=== PATIENT | male | born 1965 | race Caucasian/White ===

== ENCOUNTER 2017-04-26 01:09 | Inpatient (IN) ==
[2017-04-26] MEDS ORDERED: *HR* FentaNYL (PF) 100 MCG/2 ML VIAL IVP ONE (01:19)
--- NOTE | 2017-04-26 01:25 | Emergency Department Note ---
Disposition Clinical Impression: Pancreatitis Qualifiers: Chronicity: acute Pancreatitis type: unspecified pancreatitis type Acute pancreatitis complication: unspecified Qualified Code(s): K85.90 - Acute pancreatitis without necrosis or infection, unspecified Abdominal pain Qualifiers: Abdominal location: generalized Qualified Code(s): R10.84 - Generalized abdominal pain Nausea and vomiting Qualifiers: Vomiting type: unspecified Vomiting Intractability: non-intractable Qualified Code(s): R11.2 - Nausea with vomiting, unspecified Disposition: Admitted As Inpatient Condition: Undetermined Time of Disposition: 03:04 Abdominal Pain HPI - General Chief Complaint: ED Abdominal Pain Stated Complaint: abdominal pain Time Seen by Provider: 04/26/17 01:14 Source: patient, EMS Mode of arrival: EMS Limitations: no limitations Nursing Notes Reviewed: Yes Vital Signs Reviewed: Yes - History of Present Illness HPI Narrative: 51-year-old male with history of pancreatitis arrives [facility] emergency department complaining of lower abdominal pain. The patient states this started earlier today. He is not having associated nausea and vomiting. He denies any black, bloody stools. He has a extensive history of pancreatitis but he states he does not sure why he has this. The patient states he was never an alcoholic or drinker. The patient denies any biliary history. The patient is in the room as a transfer from the [facility] as they did not have a CT scan machine that was working at this time. The patient is in exquisite tenderness of his abdomen. He feels as though his abdomen is slightly harder than it normally is. The patient has some voluntary guarding. He was placed on Protonix drip as well as Flagyl IV antibiotic drip. The patient is received IV fluids as well. Pt Subjective Complaint: abdominal pain Onset (ago): hour(s) (12) Consistency: constant, Worsening Location: diffuse Pain Severity: moderate, severe Pain Scale: 8 Quality: stabbing Radiation: epigastric Migration to: no migration Improves with: nothing Worsens with: nothing Context: history of similar episodes Associated symptoms: Reports: nausea, chills. Denies: vomiting, diarrhea, fever , constipation, dysuria, hematemesis, hematochezia, melena, hematuria Treatments prior to arrival: prescription analgesics, other (Flagyl, Protonix) - Related Data Home Medications Medication Instructions Recorded Confirmed Aspirin 81 mg PO DAILY 01/20/16 01/20/16 Atorvastatin Calcium [Lipitor] 80 mg PO HS 01/20/16 01/20/16 Ibuprofen [Motrin] 400 mg PO DAILY PRN 01/20/16 01/20/16 Loratadine [Claritin] 10 mg PO DAILY 01/20/16 01/20/16 Salsalate [Disalcid] 750 mg PO BID 01/20/16 01/20/16 Previous Rx's Medication Instructions Recorded Multivit/Ca/Min/Fe/FA [Thera M 1 tab PO DAILY #30 tablet 08/13/15 Plus] Thiamine (B-1) [Vitamin B-1] 100 mg PO DAILY #30 tablet 08/13/15 HYDROcodone/Acet 5/325 mg [[place] 1 tab PO Q6H PRN #10 tab 01/21/16 5-325 mg] Omeprazole [PriLOSEC] 20 mg PO BIDAC #60 capsule. 01/21/16 Allergies Allergy/AdvReac Type Severity Reaction Status Date / Time Penicillins [PCN] Allergy Rash Verified 01/20/16 16:19 All systems ED: reviewed and negative except as stated. Constitutional: Reports: chills. Denies: fever, weakness ENT ED: Denies: congestion Cardiovascular: Denies: chest pain Respiratory: Denies: dyspnea Gastrointestinal: Reports: abdominal pain, nausea. Denies: vomiting, diarrhea, constipation, hematemesis, melena, hematochezia Genitourinary: Denies: dysuria Musculoskeletal: Denies: back pain, arthralgia, myalgia Neurological: Denies: headache Abdominal Pain PMH - Past Medical History Medical history: Reports: arthritis, osteoporosis, other Male Surgical History: Reports: no surgical history Psychiatric history: Reports: no psych history - Social History Smoking status: Never smoker Alcohol use: Reports: heavy Drug use: Reports: none Physical Exam - General Limitations: no limitations General appearance: alert, in distress (Due to pain) - Head Head exam: atraumatic, normocephalic, normal inspection - Eye Eye exam: Present: normal appearance, PERRL, EOMI - ENT ENT exam: normal exam, normal oropharynx, mucous membranes moist - Neck Neck exam: Present: normal inspection, full ROM, trachea midline - Chest Chest inspection: Present: normal inspection, symmetric chest wall rise - Respiratory Respiratory exam: Present: normal lung sounds bilaterally - Cardiovascular Cardiovascular exam: Present: regular rate, normal rhythm, normal heart sounds - Abdominal Exam Abdominal exam: Present: soft, tenderness (Diffuse), guarding (Voluntary). Absent: distention, rebound, rigidity, heel tap sign, Macedo's sign, Rovsing's sign, tenderness at McBurney's Point - Extremities Exam Extremities exam: Present: normal inspection, full ROM. Absent: tenderness, pedal edema Course - Consultations Consultation #1: Attending physician spoke with radiologist who noted that the patient does have signs of pancreatitis on CT scan. Time: 02:21 Vital Signs Temperature 97.9 F 04/26/17 01:13 Pulse Rate 72 04/26/17 01:13 Respiratory Rate 18 04/26/17 01:13 Blood Pressure 185/99 04/26/17 01:13 O2 Sat by Pulse Oximetry 98 04/26/17 01:13 Temperature 98.2 F 04/26/17 04:13 Pulse Rate 59 04/26/17 04:13 Respiratory Rate 12 04/26/17 04:13 Blood Pressure 168/103 04/26/17 04:13 O2 Sat by Pulse Oximetry 95 04/26/17 04:13 Oxygen Delivery Oxygen Delivery Room Air Abdominal Pain - MDM Narrative Medical decision making narrative: Patient has signs of pancreatic [place] on CT scan of the abdomen pelvis. The patient's lipase is negative, this is likely due to the chronic nature of his pancreatitis. The patient has pain control with the dose of fentanyl here in the emergency department. He is nothing by mouth at this time. He received IV fluids. We will admit the patient to the hospitalist at this time. The patient was accepted by Dr. Cole. - Lab Data Lab results reviewed: Yes I reviewed the patient's lab results. Result diagrams: 04/26/17 01:18 04/26/17 01:18 Lab Results 04/26/17 04/26/17 04/26/17 Range/Units 01:18 01:18 01:18 WBC 11.4 H (4.3-11.1) K/mcL RBC 4.63 (4.19-5.50) M/mcL Hgb 14.9 (12.9-16.9) g/dL Hct 43.3 (37.5-50.1) % MCV 93.5 (83.0-100.0) fL MCH 32.2 (28.0-33.3) pg MCHC 34.4 (31.6-35.5) g/dL RDW 14.3 (11.5-14.5) % Plt Count 210 (140-400) K/mcL MPV 8.9 L (9.4-12.4) fL Immature Gran % 0.4 (0-4) % Seg Neutrophils % 55.3 % Lymphocytes % 33.1 % Monocytes % 7.7 % Eosinophils % 2.7 % Basophils % 0.8 % Neutrophils # 6.3 (1.6-8.9) K/mcL Lymphocytes # 3.8 (0.6-4.6) K/mcL Monocytes # 0.9 (0.0-1.3) K/mcL Eosinophils # 0.3 (0.0-0.6) K/mcL Basophils # 0.1 (0.0-0.2) K/mcL Sodium 135 L (136-145) mEq/L Potassium 4.5 (3.5-4.5) mEq/L Chloride 103 (98-109) mEq/L Carbon Dioxide 26 (19-29) mEq/L BUN 7 L (8-26) mg/dL Creatinine 0.78 (0.72-1.25) mg/dL Est GFR ( Amer) > 60 (> 60) Est GFR (Non-Af Amer) > 60 (> 60) BUN/Creatinine Ratio 9 (6-26) Glucose 120 H (70-99) mg/dL Calculated Osmolality 279 L (280-300) Calcium 8.7 (8.6-10.8) mg/dL Total Bilirubin 0.6 (0.2-1.2) mg/dL AST 45 H (5-34) Units/L ALT 20 (0-55) Units/L Alkaline Phosphatase 160 H (38-126) Units/L Troponin I 0.00 (0-0.03) ng/mL Serum Total Protein 7.0 (6.0-8.3) g/dL Albumin 2.9 L (3.5-5.0) g/dL Globulin 4.1 H (2.4-3.5) g/dL Albumin/Globulin Ratio 0.7 L (1.1-2.2) Lipase 47 (8-78) Units/L Urine Color (Yellow) Urine Clarity (Clear) Urine pH (5.0-8.0) pH Units Ur Specific [place] (1.010-1.025) Urine Protein (Neg-Trace) mg/dL Urine Glucose (UA) (Normal) mg/dL Urine Ketones (Negative) mg/dL Urine Blood (Negative) Urine Nitrite (Negative) Urine Bilirubin (Negative) Urine Urobilinogen (Normal) mg/dL Ur Leukocyte Esterase (Negative) Ur Culture Indicated? (NO) 04/26/17 Range/Units 01:36 WBC (4.3-11.1) K/mcL RBC (4.19-5.50) M/mcL Hgb (12.9-16.9) g/dL Hct (37.5-50.1) % MCV (83.0-100.0) fL MCH (28.0-33.3) pg MCHC (31.6-35.5) g/dL RDW (11.5-14.5) % Plt Count (140-400) K/mcL MPV (9.4-12.4) fL Immature Gran % (0-4) % Seg Neutrophils % % Lymphocytes % % Monocytes % % Eosinophils % % Basophils % % Neutrophils # (1.6-8.9) K/mcL Lymphocytes # (0.6-4.6) K/mcL Monocytes # (0.0-1.3) K/mcL Eosinophils # (0.0-0.6) K/mcL Basophils # (0.0-0.2) K/mcL Sodium (136-145) mEq/L Potassium (3.5-4.5) mEq/L Chloride (98-109) mEq/L Carbon Dioxide (19-29) mEq/L BUN (8-26) mg/dL Creatinine (0.72-1.25) mg/dL Est GFR ( Amer) (> 60) Est GFR (Non-Af Amer) (> 60) BUN/Creatinine Ratio (6-26) Glucose (70-99) mg/dL Calculated Osmolality (280-300) Calcium (8.6-10.8) mg/dL Total Bilirubin (0.2-1.2) mg/dL AST (5-34) Units/L ALT (0-55) Units/L Alkaline Phosphatase (38-126) Units/L Troponin I (0-0.03) ng/mL Serum Total Protein (6.0-8.3) g/dL Albumin (3.5-5.0) g/dL Globulin (2.4-3.5) g/dL Albumin/Globulin Ratio (1.1-2.2) Lipase (8-78) Units/L Urine Color Yellow (Yellow) Urine Clarity Clear (Clear) Urine pH 7.0 (5.0-8.0) pH Units Ur Specific [place] 1.016 (1.010-1.025) Urine Protein Negative (Neg-Trace) mg/dL Urine Glucose (UA) Normal (Normal) mg/dL Urine Ketones Trace H (Negative) mg/dL Urine Blood Negative (Negative) Urine Nitrite Negative (Negative) Urine Bilirubin Negative (Negative) Urine Urobilinogen Normal (Normal) mg/dL Ur Leukocyte Esterase Negative (Negative) Ur Culture Indicated? NO (NO) - EKG Data EKG attestation: Yes I reviewed and interpreted this EKG. EKG results narrative: Heart rate 62 bpm. KS interval 171 ms. QTc 42 ms. Normal axis. Normal sinus rhythm. No ST elevation or ST depression noted. Attestation Statement - Attestation Attestation: I examined this patient and my medical decision-making was reviewed with the Resident Physician. I agree with the documented findings, disposition and treatment plan as described except to the extent set forth below. Abdominal pain, findings consistent with pancreatitis. I am concerned about the chronic nature of his pancreatitis unless his lipase may not be elevated at this time. CT scan shows some stranding around the pancreas. Due to ongoing abdominal pain we will proceed with admission.
[2017-04-26 01:26] LABS: Basophils # 0.1 K/mcL (0.0-0.2); Basophils % 0.8 %; Eosinophils # 0.3 K/mcL (0.0-0.6); Eosinophils % 2.7 %; Hematocrit 43.3 % (37.5-50.1); Hemoglobin 14.9 g/dL (12.9-16.9); Immature Granulocytes % 0.4 % (0-4); Lymphocytes # 3.8 K/mcL (0.6-4.6); Lymphocytes % 33.1 %; Mean Corpuscular HGB Conc 34.4 g/dL (31.6-35.5); Mean Corpuscular Hemoglobin 32.2 pg (28.0-33.3); Mean Corpuscular Volume 93.5 fL (83.0-100.0); Mean Platelet Volume 8.9 fL (9.4-12.4); Monocytes # 0.9 K/mcL (0.0-1.3); Monocytes % 7.7 %; Neutrophils # 6.3 K/mcL (1.6-8.9); Platelet Count 210 K/mcL (140-400); Red Blood Count 4.63 M/mcL (4.19-5.50); Red Cell Distribution Width 14.3 % (11.5-14.5); Segmented Neutrophils % 55.3 %
[2017-04-26 01:41] LABS: Alanine Aminotransferase 20 Units/L (0-55); Albumin 2.9 g/dL (3.5-5.0); Albumin/Globulin Ratio 0.7 (1.1-2.2); Alkaline Phosphatase 160 Units/L (38-126); Aspartate Amino Transferase 45 Units/L (5-34); BUN/Creatinine Ratio 9 (6-26); Bilirubin,Total 0.6 mg/dL (0.2-1.2); Blood Urea Nitrogen 7 mg/dL (8-26); Calcium 8.7 mg/dL (8.6-10.8); Carbon Dioxide 26 mEq/L (19-29); Chloride 103 mEq/L (98-109); Globulin 4.1 g/dL (2.4-3.5); Glucose 120 mg/dL (70-99); Lipase 47 Units/L (8-78); Osmolality,Calculated 279 (280-300); Potassium 4.5 mEq/L (3.5-4.5); Sodium 135 mEq/L (136-145); eGFR For African Americans > 60 (> 60); eGFR For Non-African Americans > 60 (> 60)
[2017-04-26 01:45] LABS: Bilirubin,Urine Negative (Negative); Blood,Urine Negative (Negative); Clarity,Urine Clear (Clear); Color,Urine Yellow (Yellow); Glucose,Urine (UA) Normal (Normal); Ketones,Urine Trace mg/dL (Negative); Leukocyte Esterase,Urine Negative (Negative); Nitrite,Urine Negative (Negative); Protein,Urine Negative (Neg-Trace); Specific Gravity,Urine 1.016 (1.010-1.025); Urobilinogen,Urine Normal (Normal)
[2017-04-26] MEDS ORDERED: 0.9 % Sodium Chloride 1,000 ML IVC SCH (04:45)
[2017-04-26] MEDS: *HR* Morphine 2 MG/ML SYRINGE IVP PRN ×5 (04:46→20:39)
[2017-04-26] MEDS ORDERED: 0.9 % Sodium Chloride 1,000 ML ONE (04:52)
[2017-04-26] MEDS ORDERED: Ondansetron 4 MG/2 ML VIAL IVP PRN (07:55)
[2017-04-26] MEDS ORDERED: Naloxone 0.4 MG/ML INJ IVP PRN (07:55)
[2017-04-26] MEDS ORDERED: Acetaminophen 325 MG TABLET PO PRN (07:55)
[2017-04-26] MEDS ORDERED: *HR* Morphine 2 MG/ML SYRINGE IVP PRN (07:55)
[2017-04-26] MEDS ORDERED: *HR* LORazepam 2 MG/ML VIAL IVP PRN ×3 (08:09)
[2017-04-26] MEDS: 0.9 % Sodium Chloride 1,000 ML IVC SCH ×2 (08:10→14:57)
[2017-04-26 08:31] LABS: Chol/HDL Ratio 3.6 (0-4.9); Cholesterol 192 mg/dL (< 200); HDL Cholesterol 54 mg/dL (40-59); LDL Cholesterol,Calculated 117 mg/dL (0-99); Triglycerides 105 mg/dL (< 150)
--- NOTE | 2017-04-26 08:39 | Internal Med History&Physical ---
Date of Encounter: 04/26/17 Time of Encounter: 08:09 Assessment and Plan (1) Acute on chronic pancreatitis Current visit: Yes Status: Acute Mr. Manley is a 51 year old male with PMH pancreatitis who presented to [facility] on 04/26/2017 with complaints of abdominal pain. He was admitted for suspected pancreatitis. 1. Acute on chronic pancreatitis: suspected. Presented with acute lower abdominal pain, no associated emesis or loose stool. Has known history of pancreatitis; possibly EtOH induced. Lipase normal, AST 45, Alk phos 160. ABD CT with mild pancreatic stranding at the level of the tail. S/p cholectomy. Afebrile, no significant elevation in WBC, no indication for ATB at this time. Keep NPO, IV fluids, IV PPI, IV morphine for pain. Lipid panel pending. Monitor clinical response. Consider further testing if symptoms worsen. 2. High blood pressure: No previous history of hypertension. BP elevated on admission. Suspect secondary to pain. Add PRN hydralazine. Monitor BP and titrate PRN 3. EtOH abuse: Per chart review patient is a daily drinker however he reports only drinking a 12 pack of beer on the weekends. Last drink 2 days prior to arrival. Denies history of alcohol withdrawal. Monitor with CIWA. 4. NSTEMI: per hx. 08/2015 TTE with EF 60-65%, normal RV, no significant valvular dysfunction. 08/2015 stress test negative for infarct or ischemia. Asymptomatic. Denies chest pain. Cont home ASA, statin when able to take PO 5. DVT prophylaxis: Lovenox (2) High blood pressure Current visit: Yes Status: Acute Qualifiers: Hypertension type: unspecified Qualified Code(s): I10 - Essential (primary ) hypertension (3) ETOH abuse Current visit: No Status: Chronic Internal Medicine - H&P: HPI Chief complaint: ABD pain Admitted From: Hospital to Hospital Transfer Plans for Post Hospital Care: Home History of present illness: Mr. Manley is a 51 year old male with PMH pancreatitis who presented to [facility] on 04/26/2017 with complaints of abdominal pain. He was admitted for suspected pancreatitis. Admission obtained from chart review and patient report. Patient reports acute onset of abdominal pain that started around 1:30 PM on Wednesday. Symptoms have progressed and worsened therefore he went to the [place]. CT machine apparently not working therefore he was transferred to [facility]. Patient describes pain as sharp, rates 10 out of 10. Pain is localized to entire abdomen morphine helped relieved somewhat, palpation makes pain worse. Has some nausea, no emesis. No loose stool. Past Med Surg Social Fam HX - Past Medical History Medical history: arthritis, osteoporosis, other Psychiatric history: no psych history - Past Surgical History Surgical History: cholecystectomy - Social History Smoking Status: Never smoker Packs per day: 1 Smokeless Tobacco Status: No Alcohol use: heavy Drug use: none - Family History Mother Family Member Ethnicity: Non- Living Status: Still Living Hx Family Cancer: Yes (breast ca) Hx Family Endocrine Disorder: Yes Internal Medicine - H&P: Meds Multivit/Ca/Min/Fe/FA [Thera M Plus] 1 tab PO DAILY #30 tablet 08/13/15 [Rx] Thiamine (B-1) [Vitamin B-1] 100 mg PO DAILY #30 tablet 08/13/15 [Rx] Aspirin 81 mg PO DAILY 01/20/16 [History] Atorvastatin Calcium [Lipitor] 80 mg PO HS 01/20/16 [History] Ibuprofen [Motrin] 400 mg PO DAILY PRN 01/20/16 [History] Loratadine [Claritin] 10 mg PO DAILY 01/20/16 [History] Salsalate [Disalcid] 750 mg PO BID 01/20/16 [History] HYDROcodone/Acet 5/325 mg [[place] 5-325 mg] 1 tab PO Q6H PRN #10 tab 01/21/16 [Rx ] Omeprazole [PriLOSEC] 20 mg PO BIDAC #60 capsule. 01/21/16 [Rx] 3 Allergy/AdvReac Type Severity Reaction Status Date / Time Penicillins [PCN] Allergy Rash Verified 01/20/16 16:19 All Systems PM: A 10-system review of systems was performed and is negative for pertinent findings except as documented above in the HPI. - Constitutional Constitutional: no chills, no fever(s), no night sweats - EENT Eyes: no change in vision, no discharge, no pain, no photophobia Ears: no ear discharge, no ear pain, no tinnitus Nose, mouth and throat: no dysphagia, no nasal discharge, no neck pain, no sore throat - Cardiovascular Cardiovascular ROS IM: no chest pain, no diaphoresis, no dyspnea, no lightheadedness, no palpitations, no syncope - Respiratory Respiratory: no cough, no dyspnea, no wheezing, no excessive phlegm production - Gastrointestinal Gastrointestinal: abdominal pain, nausea, no diarrhea, no hematemesis, no hematochezia, no melena, no vomiting - Musculoskeletal Musculoskeletal ROS IM: no numbness, no tingling - Integumentary Integumentary IM: no rash, no unusual bruising - Neurological Neurological ROS: no confusion, no convulsions, no focal weakness, no numbness, no tingling, no tremor(s) - Hematologic/Lymphatic Hematologic/Lymphatic: no easy bruising - Constitutional Vitals: Temp Pulse Resp BP Pulse Ox 97.6 F 60 16 178/92 97 04/26/17 07:04 04/26/17 07:04 04/26/17 07:04 04/26/17 07:04 04/26/17 07:04 General appearance: Present: mild distress, A&O X 3 - Head Head exam: Present: atraumatic, normocephalic - Eye Eye exam: Present: PERRL, conjuntiva pink, sclera anicteric Pupils: Present: PERRL - Neck Neck exam general surgery: Present: supple, trachea midline. Absent: lymphadenopathy - Respiratory Respiratory exam: Present: CTAB. Absent: accessory muscle use, rales, rhonchi, wheezes - Cardiovascular Cardiovascular exam: Present: RRR, +S1, +S2. Absent: diastolic murmur, gallop, rubs, systolic murmur - GI/Abdominal GI/Abdominal exam: Present: guarding, normal bowel sounds, soft, tenderness, no peritoneal signs. Absent: distended - Extremities Exam Extremities exam: Present: warm, radial pulses palpable and symmetrical. Absent : calf tenderness, cyanotic, pedal edema - Neurological Exam Neurological exam: Present: CN II-XII intact, oriented X3, no focal deficits. Absent: pronater drift, facial droop, speech deficit - Skin Skin exam: Present: dry, intact Internal Med - H&P Results - Labs CBC & Chem 7: 04/26/17 01:18 04/26/17 01:18
[2017-04-26] MEDS ORDERED: Pantoprazole 40 MG VIAL IVP ONE (09:14)
[2017-04-26] MEDS: *HR* Enoxaparin 40 MG/0.4 ML SYRINGE SQ SCH (12:01)
--- NOTE | 2017-04-26 13:08 | Electrocardiograph Report ---
[address] [address] Test Date: 2017-04-26 Pat Name: Thony Manley Department: 104 Room: 3B Gender: M Health And Safety Consultant: : 1965 Requested By: Jeremy Schneider Order Number: [id number] Reading MD: Chely Davis Measurements Intervals [place] Rate: 62 P: 40 SD: 171 QRS: 39 QRSD: 89 T: 35 QT: 397 QTc: 402 Interpretive Statements SINUS RHYTHM Electronically Signed On 04-26-2017 12:34:48 EST by Chely Davis
[2017-04-26] MEDS: Pantoprazole 40 MG VIAL IVP SCH (17:30)
[2017-04-26] MEDS ORDERED: Thiamine (B-1) 100 MG, Folic Acid 1 MG, MVI, adult with vitamin K 10 ML in 0.9 % Sodi... IVPB SCH (18:00)
[2017-04-27] MEDS: *HR* Morphine 2 MG/ML SYRINGE IVP PRN (00:39)
[2017-04-27 03:51] LABS: Hematocrit 41.4 % (37.5-50.1); Hemoglobin 14.1 g/dL (12.9-16.9); Mean Corpuscular HGB Conc 34.1 g/dL (31.6-35.5); Mean Corpuscular Hemoglobin 31.8 pg (28.0-33.3); Mean Corpuscular Volume 93.5 fL (83.0-100.0); Mean Platelet Volume 9.2 fL (9.4-12.4); Platelet Count 212 K/mcL (140-400); Red Blood Count 4.43 M/mcL (4.19-5.50); Red Cell Distribution Width 14.2 % (11.5-14.5)
[2017-04-27 04:09] LABS: BUN/Creatinine Ratio 8 (6-26); Blood Urea Nitrogen 6 mg/dL (8-26); Calcium 8.7 mg/dL (8.6-10.8); Carbon Dioxide 25 mEq/L (19-29); Chloride 104 mEq/L (98-109); Glucose 76 mg/dL (70-99); Osmolality,Calculated 280 (280-300); Potassium 4.2 mEq/L (3.5-4.5); Sodium 137 mEq/L (136-145); eGFR For African Americans > 60 (> 60); eGFR For Non-African Americans > 60 (> 60)
[2017-04-27 04:26] LABS: Hepatitis A Antibody IgM Nonreactive (Nonreactive); Hepatitis B Core IgM Nonreactive (Nonreactive); Hepatitis B Surface Antigen Nonreactive (Nonreactive); Hepatitis C Virus Antibody Nonreactive (Nonreactive)
[2017-04-27] MEDS: Pantoprazole 40 MG VIAL IVP SCH (06:02)
[2017-04-27] MEDS: *HR* Enoxaparin 40 MG/0.4 ML SYRINGE SQ SCH (06:02)
[2017-04-27 08:27] LABS: Alanine Aminotransferase 16 Units/L (0-55); Albumin 2.7 g/dL (3.5-5.0); Albumin/Globulin Ratio 0.7 (1.1-2.2); Alkaline Phosphatase 140 Units/L (38-126); Aspartate Amino Transferase 16 Units/L (5-34); Bilirubin,Direct 0.2 mg/dL (0.0-0.5); Bilirubin,Indirect 0.4 mg/dL (0.0-1.2); Bilirubin,Total 0.6 mg/dL (0.2-1.2); Globulin 3.9 g/dL (2.4-3.5); Total Protein 6.6 g/dL (6.0-8.3)
[2017-04-27 11:06] VITALS: BP 116/73
--- NOTE | 2017-04-27 13:04 | Internal Med Progress Note ---
Date of Encounter: 04/27/17 Time of Encounter: 13:01 - Assessment and plan (1) Acute on chronic pancreatitis Current Visit: Yes Status: Acute Assessment and plan: Mr. Manley is a 51 year old male with PMH pancreatitis who presented to [facility] on 04/26/2017 with complaints of abdominal pain. He was admitted for suspected pancreatitis. 1. Acute on chronic pancreatitis: suspected. Presented with acute lower abdominal pain, no associated emesis or loose stool. Has known history of pancreatitis; possibly EtOH induced. Lipase normal, AST 45, Alk phos 160. ABD CT with mild pancreatic stranding at the level of the tail. S/p cholecystectomy. Afebrile, no significant elevation in WBC, no indication for ATB. Symptoms improved with NPO, IV fluids, IV PPI, IV morphine. His abdominal pain had resolved and he was tolerating a regular diet at time of discharge. Recommend follow-up with PCP within 1-2 weeks. 2. High blood pressure: No previous history of hypertension. BP elevated on admission. Suspect secondary to pain. BP normalized without intervention as pain was controlled. 3. EtOH abuse: Per chart review patient is a daily drinker however he reports only drinking a 12 pack of beer on the weekends. Last drink 2 days prior to arrival. Denies history of alcohol withdrawal. Did not trigger [place]. 4. NSTEMI: per hx. 08/2015 TTE with EF 60-65%, normal RV, no significant valvular dysfunction. 08/2015 stress test negative for infarct or ischemia. Asymptomatic. Denies chest pain. Cont home ASA, statin Seen and examined at bedside. Patient says he feels significantly better and actually wants to go home today. Denies abdominal pain and says he has an appetite and wants to eat. He would like to go home later on this evening if able. He has no other complaints. Specifically denies chest pain, no shortness of breath. No abdominal pain and nausea vomiting or diarrhea. (2) High blood pressure Current Visit: Yes Status: Acute Qualifiers: Hypertension type: unspecified Qualified Code(s): I10 - Essential (primary ) hypertension (3) ETOH abuse Current Visit: No Status: Chronic - Constitutional Vitals: Temp Pulse Resp BP Pulse Ox 98.1 F 72 14 116/73 94 04/27/17 11:03 04/27/17 11:03 04/27/17 11:03 04/27/17 11:03 04/27/17 11:03 General appearance: Present: A&O X 3 - Head Head exam: Present: atraumatic, normocephalic - Eye Eye exam: Present: PERRL, conjuntiva pink, sclera anicteric Pupils: Present: PERRL - Neck Neck exam general surgery: Present: supple, trachea midline. Absent: lymphadenopathy - Respiratory Respiratory exam: Present: CTAB. Absent: accessory muscle use, rales, rhonchi, wheezes - Cardiovascular Cardiovascular exam: Present: RRR, +S1, +S2. Absent: diastolic murmur, gallop, rubs, systolic murmur - GI/Abdominal GI/Abdominal exam: Present: normal bowel sounds, soft, no peritoneal signs. Absent: distended, tenderness - Extremities Exam Extremities exam: Present: warm, radial pulses palpable and symmetrical. Absent : calf tenderness, cyanotic, pedal edema - Neurological Exam Neurological exam: Present: CN II-XII intact, oriented X3, no focal deficits. Absent: pronater drift, facial droop, speech deficit - Skin Skin exam: Present: dry, intact Internal Medicine: Result - Labs CBC & Chem 7: 04/27/17 03:05 04/27/17 03:05 Labs: Short CBC 04/27/17 Range/Units 03:05 WBC 10.2 (4.3-11.1) K/mcL Hgb 14.1 (12.9-16.9) g/dL Hct 41.4 (37.5-50.1) % Plt Count 212 (140-400) K/mcL [facility] 04/27/17 03:05 Sodium 137 Potassium 4.2 Chloride 104 Carbon Dioxide 25 BUN 6 L Creatinine 0.71 L Glucose 76 Calcium 8.7 Liver Function 04/27/17 Range/Units 03:05 Total Bilirubin 0.6 (0.2-1.2) mg/dL Direct Bilirubin 0.2 (0.0-0.5) mg/dL AST 16 (5-34) Units/L ALT 16 (0-55) Units/L Alkaline Phosphatase 140 H (38-126) Units/L Albumin 2.7 L (3.5-5.0) g/dL Consult Discharge Plan - Plan [facility]errals: [facility]Primary Care Provider[facility] -
--- NOTE | 2017-04-27 13:11 | Discharge Summary ---
Date of Encounter: 04/27/17 Time of Encounter: 13:07 - Discharge Diagnosis (1) Acute on chronic pancreatitis Priority: Primary Status: Acute Comments: Mr. Manley is a 51 year old male with PMH pancreatitis who presented to [facility] on 04/26/2017 with complaints of abdominal pain. He was admitted for suspected pancreatitis. 1. Acute on chronic pancreatitis: suspected. Presented with acute lower abdominal pain, no associated emesis or loose stool. Has known history of pancreatitis; possibly EtOH induced. Lipase normal, AST 45, Alk phos 160. ABD CT with mild pancreatic stranding at the level of the tail. S/p cholecystectomy. Afebrile, no significant elevation in WBC, no indication for ATB. Symptoms improved with NPO, IV fluids, IV PPI, IV morphine. His abdominal pain had resolved and he was tolerating a regular diet at time of discharge. Recommend follow-up with PCP within 1-2 weeks. 2. High blood pressure: No previous history of hypertension. BP elevated on admission. Suspect secondary to pain. BP normalized without intervention as pain was controlled. 3. EtOH abuse: Per chart review patient is a daily drinker however he reports only drinking a 12 pack of beer on the weekends. Last drink 2 days prior to arrival. Denies history of alcohol withdrawal. Did not trigger [place]. (2) High blood pressure Priority: Primary Status: Acute Qualifiers: Hypertension type: unspecified Qualified Code(s): I10 - Essential (primary ) hypertension (3) ETOH abuse Priority: Primary Status: Chronic - Discharge Medications Home Medications: No Known Home Drugs 04/26/17 [History] Allergies/Adverse Reactions: 3 Allergy/AdvReac Type Severity Reaction Status Date / Time Penicillins [PCN] Allergy Rash Verified 01/20/16 16:19 Date of admission: 04/26/17 08:11 [facility] care [facility] Discharging clinician: Jeannie Ayoub Anticipated date of discharge: 04/27/17 - Patient Status Disposition: Home, Self-Care Condition: Good Functional capacity at discharge: independent ambulation Overall status at discharge: patient is back to baseline - Discharge Instructions Instructions: Pancreatitis (DC) [facility]: [facility] [Primary Care Provider] - - Diet and Activity Activity: increase activity as tolerated Diet: advance to your usual diet Interval History: Seen and examined at bedside. Patient says he feels significantly better and actually wants to go home today. Denies abdominal pain and says he has an appetite and wants to eat. He would like to go home later on this evening if able. He has no other complaints. Specifically denies chest pain, no shortness of breath. No abdominal pain and nausea vomiting or diarrhea. - Time Spent with Patient Total time spent providing and/or coordinating discharge services: Less than 30 minutes - Constitutional Vitals: Temp Pulse Resp BP Pulse Ox 98.1 F 72 14 116/73 94 04/27/17 11:03 04/27/17 11:03 04/27/17 11:03 04/27/17 11:03 04/27/17 11:03 General appearance: Present: A&O X 3 - Head Head exam: Present: atraumatic, normocephalic - Eye Eye exam: Present: PERRL, conjuntiva pink, sclera anicteric Pupils: Present: PERRL - Neck Neck exam general surgery: Present: supple, trachea midline. Absent: lymphadenopathy - Respiratory Respiratory exam: Present: CTAB. Absent: accessory muscle use, rales, rhonchi, wheezes - Cardiovascular Cardiovascular exam: Present: RRR, +S1, +S2. Absent: diastolic murmur, gallop, rubs, systolic murmur - GI/Abdominal GI/Abdominal exam: Present: normal bowel sounds, soft, no peritoneal signs. Absent: distended, tenderness - Extremities Exam Extremities exam: Present: warm, radial pulses palpable and symmetrical. Absent : calf tenderness, cyanotic, pedal edema - Neurological Exam Neurological exam: Present: CN II-XII intact, oriented X3, no focal deficits. Absent: pronater drift, facial droop, speech deficit - Skin Skin exam: Present: dry, intact
== END 2017-04-27 14:25 | disposition home or self-care (01) | DRG 440 ==
LOC: EMEROO 01:09 → 3NENU 01:09 → 3BNU 03:30
PROVIDERS: ADMIT Internal Medicine; ATTEND Internal Medicine

== ENCOUNTER 2017-09-08 16:50 | Inpatient (IN) ==
[2017-09-08] MEDS ORDERED: Ondansetron 4 MG/2 ML VIAL IVP ONE (17:26)
[2017-09-08] MEDS ORDERED: 0.9 % Sodium Chloride 1,000 ML IVC ONE (17:26)
[2017-09-08] MEDS ORDERED: *HR* FentaNYL (PF) 100 MCG/2 ML VIAL IVP ONE (17:26)
--- NOTE | 2017-09-08 17:49 | Emergency Department Note ---
Disposition Clinical Impression: Pancreatic mass Nausea & vomiting Qualifiers: Vomiting type: unspecified Vomiting Intractability: non-intractable Qualified Code(s): R11.2 - Nausea with vomiting, unspecified Abdominal pain Qualifiers: Abdominal location: left upper quadrant Qualified Code(s): R10.12 - Left upper quadrant pain Disposition: Admitted As Inpatient Condition: Fair Time of Disposition: 18:57 Abdominal Pain HPI - General Chief Complaint: ED Abdominal Pain Stated Complaint: "Pancreatic mass" Time Seen by Provider: 09/08/17 16:53 Source: patient Mode of arrival: EMS Limitations: no limitations Nursing Notes Reviewed: Yes Vital Signs Reviewed: Yes - History of Present Illness HPI Narrative: Patient is a 52-year-old male who presents to [facility] ED with a chief complaint of abdominal pain. States [facility] and was diagnosed with a pancreatic mass. His CT scan shows a focal decreased enhancement in the tail of the pancreas measuring 0.4 x 0.8 x 1.1 cm that is concerning for pancreatic carcinoma. A biopsy is recommended. Patient states he has had 3 days of worsening abdominal pain as well as nausea with vomiting. Denies any fevers or chills. Pt Subjective Complaint: abdominal pain Onset (ago): day(s) Consistency: constant Location: LUQ, LLQ Pain Severity: severe Pain Scale: 10 Quality: stabbing Radiation: none Migration to: no migration Improves with: nothing Worsens with: nothing Associated symptoms: Reports: nausea, vomiting. Denies: diarrhea, fever, chills , constipation, dysuria Treatments prior to arrival: none - Related Data Home Medications Medication Instructions Recorded Confirmed No Known Home Drugs 04/26/17 09/08/17 Allergies Allergy/AdvReac Type Severity Reaction Status Date / Time Penicillins [PCN] Allergy Rash Verified 01/20/16 16:19 All systems ED: reviewed and negative except as stated. Abdominal Pain PMH - Past Medical History Medical history: Reports: arthritis, osteoporosis, other Male Surgical History: Reports: no surgical history Psychiatric history: Reports: no psych history - Social History Smoking status: Never smoker Alcohol use: Reports: heavy Drug use: Reports: none Physical Exam - General Limitations: no limitations General appearance: alert, in no apparent distress - Head Head exam: atraumatic, normocephalic, normal inspection - Eye Eye exam: Present: normal appearance, EOMI - ENT ENT exam: normal exam, normal oropharynx, mucous membranes moist - Neck Neck exam: Present: normal inspection, full ROM, trachea midline - Chest Chest inspection: Present: normal inspection, symmetric chest wall rise - Respiratory Respiratory exam: Present: normal lung sounds bilaterally - Cardiovascular Cardiovascular exam: Present: regular rate, normal rhythm, normal heart sounds - Abdominal Exam Abdominal exam: Present: soft, tenderness, normal bowel sounds Abdominal tenderness: Present: diffuse, moderate - Extremities Exam Extremities exam: Present: normal inspection, full ROM. Absent: tenderness, pedal edema - Back Exam Back exam: Present: normal inspection, full ROM. Absent: tenderness - Neurological Exam Neurological exam: Present: alert, oriented X3 - Psychiatric Psychiatric exam: Present: normal affect, normal mood - Skin Skin exam: Present: warm, dry, intact, normal color Course Course Narrative: Patient seen and examined. Generalized abdominal pain worse over the last 3 days. Has had nausea with vomiting. Workup done at the [facility] shows a pancreatic mass concerning for pancreatic carcinoma. We will place an IV, give fluids, pain medication and nausea medication and admit to hospitalist for further workup. [facility] Lab Work 09/08/2017 UA Clarity clear Color yellow Urine glucose negative Urine bilirubin negative Urine ketones 10 Specific gravity 1.030 Urine occult blood negative Urine pH 8.0 H Urine protein trace Urine nitrite negative Urine leukocyte esterase negative Glucose 116 Ammonia 20 Ethanol <3 AST 14 ALT 17 Total bilirubin 0.5 Alkaline phosphatase total 144 H Calcium 9.8 Total protein 8.7 Albumin 3.9 Lipase 146 Amylase 64 Sodium 134 L Potassium 3.7 Chloride 99 CO2 27 Glucose 112 H BUN 7 Creatinine 0.80 Estimated GFR >60 WBC 11.9 RBC 5.53 Hgb 18 HCT 50.9 MCV 92 MCH 32.5 MCHC 35.4 RDW 13.9 PLT 242.0 Neutrophils 88.3 Lymphocytes 28.8 Monocytes 9.8 Eosinophils 2.3 Basophils 0.8 Absolute neutrophil count 6.9 Absolute lymphocytes 3.4 Absolute monocytes 1.2 Absolute eosinophil 0.3 Absolute basophil 0.1 - Reevaluation(s) Reevaluation #1: Discussed with hospitalist Dr. Hamlin who has accepted patient for admission. Time: 18:57 Vital Signs Temperature 97.8 F 09/08/17 16:51 Pulse Rate 73 09/08/17 16:51 Respiratory Rate 20 04/04/18 16:51 Blood Pressure 141/96 09/08/17 16:51 O2 Sat by Pulse Oximetry 96 09/08/17 16:51 Temperature 97.7 F 09/08/17 18:55 Pulse Rate 70 09/08/17 18:55 Respiratory Rate 14 09/08/17 18:55 Blood Pressure 145/84 09/08/17 18:55 O2 Sat by Pulse Oximetry 94 09/08/17 18:55 Oxygen Delivery Oxygen Delivery Room Air Abdominal Pain - Medical Records Medical records reviewed: Yes I reviewed the patient's medical records. - Lab Data Lab results reviewed: Yes I reviewed the patient's lab results. - Radiology Data Radiology results reviewed: Yes I reviewed the patient's radiology results. Attestation Statement - Attestation Attestation: I examined this patient and my medical decision-making was reviewed with the Resident Physician, Dr. Brooke. I agree with the documented findings, disposition and treatment plan as described except to the extent set forth below. Patient is a 52-year-old male with a history of chronic alcoholism who was transferred to us from the [facility] with concerns for pancreatic mass. Patient has a history of EtOH and prior pancreatitis and after review of our records looks like he has been admitted twice in the past 6 months for acute pancreatitis. During those episodes patient had a normal lipase, normal white count, with presenting epigastric pain nausea vomiting and abnormal CT findings with. Pancreatic inflammation. Patient has had a three-day history of gradually worsening epigastric pain radiating through to his back associated with nausea and vomiting and was evaluated initially at the [facility]. They obtained a full lab evaluation including CT abdomen and pelvis which showed findings concerning for pancreatic tail mass. Patient's labs are otherwise unremarkable , vital signs are stable he is hemodynamically stable on arrival. I agree with patient's physical exam findings as documented. Vitals are stable. Patient was started on IV fluid bolus, pain meds and antiemetics and made nothing by mouth. There is no need to repeat any additional labs or imaging at this time as everything was done just prior to arrival to our ED. These were placed in the chart. Case was discussed with hospitalist who accepted patient for admission for further evaluation and management.
[2017-09-08] MEDS ORDERED: Ondansetron 4 MG/2 ML VIAL IVP PRN (19:01)
[2017-09-08] MEDS ORDERED: Naloxone 0.4 MG/ML INJ IVP PRN (19:02)
[2017-09-08] MEDS ORDERED: *HR* LORazepam 2 MG/ML VIAL IVP PRN ×3 (20:37)
[2017-09-08] MEDS: *HR* FentaNYL (PF) 100 MCG/2 ML VIAL IVP PRN (20:45)
[2017-09-08] MEDS: 0.9 % Sodium Chloride 1,000 ML IVC SCH (20:51)
--- NOTE | 2017-09-08 21:10 | Internal Med History&Physical ---
Date of Encounter: 09/08/17 Time of Encounter: 21:02 Internal Medicine - H&P: HPI Chief complaint: abdominal pain, N/V x 3 days, pancreatitis Admitted From: Home Plans for Post Hospital Care: Home History of present illness: Mr. Manley is a 52 year old male with a PMH of arthritis, osteoporosis, HLD, ETOH abuse and pancreatitis. He presents to the ED from [facility] today with a 3-day h/o abdominal pain and N/V/D. He has c/o diffuse abdominal pain but notes that it is worse in the LUQ and epigastric area. He describes the pain as stabbing and rates it a 10/10 in intensity. He reports that he has had pancreatitis in the past. Additionally, he reports that he regularly ingest alcohol. His workup did not show any elevations in LFT's; lipase is high normal. However CT of the abdomen which was completed at the [facility] reveals a focal decreased enhancement in the tail of the pancreas measuring 0.4 x 0.8 x 1.1 cm that is concerning for pancreatic carcinoma. He is being admitted for further workup and evaluation. Past Med Surg Social Fam HX - Past Medical History Medical history: arthritis, osteoporosis, other Psychiatric history: no psych history - Past Surgical History Surgical History: cholecystectomy - Social History Smoking Status: Never smoker Smokeless Tobacco Status: No Alcohol use: heavy Drug use: none - Family History Mother Family Member Ethnicity: Non- Living Status: Still Living Hx Family Cancer: Yes (breast ca) Hx Family Endocrine Disorder: Yes Internal Medicine - H&P: Meds No Known Home Drugs 04/26/17 [History] 3 Allergy/AdvReac Type Severity Reaction Status Date / Time Penicillins [PCN] Allergy Rash Verified 01/20/16 16:19 All Systems PM: A 10-system review of systems was performed and is negative for pertinent findings except as documented above in the HPI. Review of systems: REVIEW OF SYSTEMS GENERAL: Negative for any nausea, vomiting, fevers, chills, or weight loss, decrease in appetite, Dysgeusia or anosmia. NEUROLOGIC: Negative for any blurry vision, blind spots, double vision, facial asymmetry, dysphagia, dysarthria, hemiparesis, hemisensory deficits, vertigo, ataxia. HEENT: Negative for any head trauma, neck trauma, neck stiffness, photophobia, phonophobia, sinusitis, rhinitis. CARDIAC: Negative for any chest pain, dyspnea on exertion, paroxysmal nocturnal dyspnea, peripheral edema. PULMONARY: Negative for any shortness of breath, wheezing, COPD, or TB exposure. GASTROINTESTINAL: Negative for any bright red blood per rectum, melena. Positive for diffuse abdominal pain worse in the epigastric area and left upper quadrant, nausea, vomiting and diarrhea GENITOURINARY: Negative for any dysuria, hematuria, incontinence. INTEGUMENTARY: Negative for any rashes, cuts, insect bites. RHEUMATOLOGIC: Negative for any joint pains, photosensitive rashes, history of vasculitis or kidney problems. HEMATOLOGIC: Negative for any abnormal bruising, frequent infections or bleeding. - Constitutional Vitals: Temp Pulse Resp BP Pulse Ox 97.7 F 70 14 145/84 94 09/08/17 18:55 09/08/17 18:55 09/08/17 18:55 09/08/17 18:55 09/08/17 18:55 General appearance: Present: cooperative, mild distress, A&O X 3, answers questions appropriately Exam: PHYSICAL EXAMINATION: GENERAL: The patient is a well-developed, well-nourished male in mild distress. He is alert and oriented x3 HEENT: Head is normocephalic and atraumatic. Extraocular muscles are intact. Pupils are equal, round, and reactive to light and accommodation. NECK: Supple. No carotid bruits. No lymphadenopathy or thyromegaly. LUNGS: Clear to auscultation. HEART: Regular rate and rhythm without murmur. ABDOMEN: Soft,nondistended. Hypoactive bowel sounds. No hepatosplenomegaly was noted. Diffuse tenderness throughout worse in left upper quadrant EXTREMITIES: Without any cyanosis, clubbing, rash, lesions or edema SKIN: No ulceration or induration rashes or lesions present Internal Med - H&P Results - Impressions focal decreased enhancement in the tail of the pancreas measuring 0.4 x 0.8 x 1.1 cm that is concerning for pancreatic carcinoma. - Assessment and plan (1) Acute pancreatitis, unspecified Current Visit: Yes Status: Acute Assessment and plan: Presents today with N/V/D and diffuse abdominal pain for 3-days. He has a h/o pancreatitis and ETOH abuse. [facility] a new pancreatic mass per CT abdomen which shows a focal decreased enhancement in the tail of the pancreas measuring 0.4 x 0.8 x 1.1 cm that is concerning for pancreatic carcinoma. No elevation in AST (14) or ALT (17). Lipase is high normal at 146. Given his clinical presentation and past hx he appears to have acute pancreatitis. Also, he reports that he had 6 alcoholic beverages this past Wednesday. I have consulted oncology who recommends outpatient f/u of new pancreatic mass after resolution of pancreatitis. -Start conservative treatment including IVF, analgesia, and antiemetics -IVF 0.9% NS at 150ml/hr -Zofran 4mg Q6hrs for nausea -Clear diet for now -Fentanyl, and Oxycodone for pain PRN -Continuous tele, -Recheck lipase in am -CBCD, CMP in am. Qualifiers: Pancreatitis type: alcohol induced Acute pancreatitis complication: unspecified Qualified Code(s): K85.20 - Alcohol induced acute pancreatitis without necrosis or infection (2) Pancreatic mass Current Visit: Yes Status: Acute Assessment and plan: see plan above (3) Abdominal pain Current Visit: Yes Status: Acute Qualifiers: Abdominal location: generalized Qualified Code(s): R10.84 - Generalized abdominal pain (4) Nausea and vomiting Current Visit: Yes Status: Acute Qualifiers: Vomiting type: unspecified Vomiting Intractability: non-intractable Qualified Code(s): R11.2 - Nausea with vomiting, unspecified (5) ETOH abuse Current Visit: Yes Status: Chronic Assessment and plan: Hx of ETOH abuse. He reports that he mainly drink 6 alcoholic beverages on the weekends. However, he also admits that he sometimes drinks more frequently. He denies ever going through withdrawal. His last alcoholic beverage was Monday September 04, 2017. -CIWA -B12, Folate and (6) Current smoker Current Visit: Yes Status: Chronic Assessment and plan: Discussed smoking cessation. Nicotine patch (7) DVT prophylaxis Current Visit: Yes Status: Acute Assessment and plan: Heparin 5000 units SC BID - Time Spent With Patient Total time spent is greater than 50% in coordination of care (as documented) at patient's floor/unit and/or counseling patient: Greater than 35 minutes
[2017-09-08] MEDS: Thiamine (B-1) 100 MG TABLET PO SCH (21:13)
[2017-09-08] MEDS: Folic Acid 1 MG TABLET PO SCH (21:13)
[2017-09-08] MEDS: Vitamin B Complex/Vit C/Vit E 1 EACH TABLET PO SCH (21:13)
[2017-09-08] MEDS: Nicotine 14 MG PATCH.TD24 TD SCH (21:46)
[2017-09-08] MEDS: *HR* OxyCODONE/APAP 5/325 TABLET PO PRN (22:24)
[2017-09-09] MEDS: *HR* FentaNYL (PF) 100 MCG/2 ML VIAL IVP PRN ×2 (01:45→06:51)
[2017-09-09] MEDS: *HR* OxyCODONE/APAP 5/325 TABLET PO PRN ×3 (04:35→18:13)
[2017-09-09] MEDS: 0.9 % Sodium Chloride 1,000 ML IVC SCH (04:38)
[2017-09-09 05:32] LABS: Basophils # 0.1 K/mcL (0.0-0.2); Basophils % 0.8 %; Eosinophils # 0.4 K/mcL (0.0-0.6); Eosinophils % 3.9 %; Hematocrit 42.2 % (37.5-50.1); Hemoglobin 14.5 g/dL (12.9-16.9); Immature Granulocytes % 0.4 % (0-4); Lymphocytes # 2.5 K/mcL (0.6-4.6); Lymphocytes % 25.7 %; Mean Corpuscular HGB Conc 34.4 g/dL (31.6-35.5); Mean Corpuscular Hemoglobin 31.9 pg (28.0-33.3); Mean Platelet Volume 9.4 fL (9.4-12.4); Monocytes # 1.1 K/mcL (0.0-1.3); Monocytes % 11.1 %; Neutrophils # 5.6 K/mcL (1.6-8.9); Platelet Count 201 K/mcL (140-400); Red Blood Count 4.54 M/mcL (4.19-5.50); Red Cell Distribution Width 13.6 % (11.5-14.5); Segmented Neutrophils % 58.1 %
[2017-09-09] MEDS: *HR* Heparin 5,000 UNIT/ML VIAL SQ SCH ×2 (05:38→18:13)
[2017-09-09 05:55] LABS: Alanine Aminotransferase 10 Units/L (7-52); Albumin 3.3 g/dL (3.5-5.7); Albumin/Globulin Ratio 1.1 (1.1-2.2); Alkaline Phosphatase 109 Units/L (34-104); Aspartate Amino Transferase 15 Units/L (13-39); BUN/Creatinine Ratio 10 (6-26); Bilirubin,Total 0.5 mg/dL (0.3-1.0); Blood Urea Nitrogen 7 mg/dL (6-20); Calcium 8.7 mg/dL (8.6-10.3); Carbon Dioxide 23 mEq/L (23-29); Chloride 106 mEq/L (98-107); Chol/HDL Ratio 4.7 (0-4.9); Cholesterol 175 mg/dL (< 200); Globulin 2.9 g/dL (2.4-3.5); Glucose 98 mg/dL (70-105); HDL Cholesterol 37 mg/dL (40-59); LDL Cholesterol,Calculated 114 mg/dL (0-99); Osmolality,Calculated 276 (280-300); Potassium 3.8 mEq/L (3.5-5.1); Sodium 134 mEq/L (136-145); Total Protein 6.2 g/dL (6.4-8.9); Triglycerides 119 mg/dL (< 150); eGFR For African Americans > 60 (> 60); eGFR For Non-African Americans > 60 (> 60)
[2017-09-09] MEDS ORDERED: OXYCODONE Oral CONC 10 MG/0.5 ML ORAL.SYG SL PRN (08:37)
--- NOTE | 2017-09-09 08:41 | Internal Med Progress Note ---
Date of Encounter: 09/09/17 Time of Encounter: 12:25 - Assessment and plan (1) ETOH abuse Current Visit: Yes Status: Chronic Assessment and plan: Hx of ETOH abuse. He reports that he mainly drink 6 alcoholic beverages on the weekends. However, he also admits that he sometimes drinks more frequently. He denies ever going through withdrawal. His last alcoholic beverage was Monday September 04, 2017. -CIWA -B12, Folate and thiamine, continue (2) Current smoker Current Visit: Yes Status: Chronic Assessment and plan: Discussed smoking cessation. Nicotine patch (3) Pancreatic mass Current Visit: Yes Status: Ruled-out Assessment and plan: Ruled out by MRI Oncology consulted by admiting team, follow recs (4) DVT prophylaxis Current Visit: Yes Status: Acute Assessment and plan: Heparin 5000 units SC BID (5) Chronic pancreatitis Current Visit: Yes Status: Acute Assessment and plan: acute on chronic MRI showed tail of pancreas with inflammation, atrophy of pancreas signifying chronicity, as well as pseudocyst due to alcohol lipid panel unremarkable no stones on CT/MRI Continue pain control and supportive care clear liquid diet and advance as tolerated Qualifiers: Pancreatitis type: alcohol induced Qualified Code(s): K86.0 - Alcohol- induced chronic pancreatitis (6) Abdominal pain Current Visit: Yes Status: Acute Assessment and plan: see above Qualifiers: Abdominal location: generalized Qualified Code(s): R10.84 - Generalized abdominal pain (7) Pancreatic pseudocyst Current Visit: Yes Status: Acute Assessment and plan: per MRI Follow up protocol is 1 year - Time Spent With Patient Total time spent is greater than 50% in coordination of care (as documented) at patient's floor/unit and/or counseling patient: - Subjective Interval history: Seen and examined at bedside with father Still having abdominal pain, stated 5-11/14, no other complains - Constitutional Vitals: Temp Pulse Resp BP Pulse Ox 97.7 F 73 20 128/80 92 09/09/17 07:15 09/09/17 07:15 09/09/17 07:15 09/09/17 07:15 09/09/17 07:15 General appearance: Present: cooperative, mild distress, A&O X 3, pleasant, answers questions appropriately - Head Head exam: Present: atraumatic, normocephalic - Eye Eye exam: Present: PERRL, conjuntiva pink, sclera anicteric Pupils: Present: PERRL - Neck Neck exam general surgery: Present: supple, trachea midline. Absent: lymphadenopathy - Respiratory Respiratory exam: Present: CTAB. Absent: accessory muscle use, rales, rhonchi, wheezes - Cardiovascular Cardiovascular exam: Present: RRR, +S1, +S2. Absent: diastolic murmur, gallop, rubs, systolic murmur - GI/Abdominal GI/Abdominal exam: Present: normal bowel sounds, soft, tenderness (epigastric tenderness), no peritoneal signs. Absent: distended - Extremities Exam Extremities exam: Present: warm, radial pulses palpable and symmetrical. Absent : calf tenderness, cyanotic, pedal edema - Neurological Exam Neurological exam: Present: alert, CN II-XII intact, oriented X3, no focal deficits. Absent: pronater drift, facial droop, speech deficit - Skin Skin exam: Present: dry, intact Internal Medicine: Result - Labs CBC & Chem 7: 09/09/17 05:05 09/09/17 05:05 Labs: Short CBC 09/09/17 Range/Units 05:05 WBC 9.7 (4.3-11.1) K/mcL Hgb 14.5 (12.9-16.9) g/dL Hct 42.2 (37.5-50.1) % Plt Count 201 (140-400) K/mcL Neutrophils # 5.6 (1.6-8.9) K/mcL BMP 09/09/17 05:05 Sodium 134 L Potassium 3.8 Chloride 106 Carbon Dioxide 23 BUN 7 Creatinine 0.69 L Glucose 98 Calcium 8.7 Liver Function 09/09/17 Range/Units 05:05 Total Bilirubin 0.5 (0.3-1.0) mg/dL AST 15 (13-39) Units/L ALT 10 (7-52) Units/L Alkaline Phosphatase 109 H (34-104) Units/L Albumin 3.3 L (3.5-5.7) g/dL Consult Discharge Plan - Plan Referrals: [facility] [Outside]
[2017-09-09] MEDS: Vitamin B Complex/Vit C/Vit E 1 EACH TABLET PO SCH (09:08)
[2017-09-09] MEDS: Thiamine (B-1) 100 MG TABLET PO SCH (09:08)
[2017-09-09] MEDS: Folic Acid 1 MG TABLET PO SCH (09:08)
[2017-09-09] MEDS: Nicotine 14 MG PATCH.TD24 TD SCH (09:08)
[2017-09-09] MEDS: OXYCODONE Oral CONC 10 MG/0.5 ML ORAL.SYG SL PRN ×2 (15:37→21:25)
[2017-09-09] MEDS: Pantoprazole 40 MG VIAL IVP SCH (15:37)
[2017-09-10] MEDS: *HR* OxyCODONE/APAP 5/325 TABLET PO PRN ×3 (00:44→22:28)
[2017-09-10] MEDS: *HR* Heparin 5,000 UNIT/ML VIAL SQ SCH ×2 (05:54→15:03)
[2017-09-10] MEDS: OXYCODONE Oral CONC 10 MG/0.5 ML ORAL.SYG SL PRN ×3 (05:55→19:43)
[2017-09-10] MEDS: Thiamine (B-1) 100 MG TABLET PO SCH (08:26)
[2017-09-10] MEDS: Vitamin B Complex/Vit C/Vit E 1 EACH TABLET PO SCH (08:26)
[2017-09-10] MEDS: Folic Acid 1 MG TABLET PO SCH (08:26)
[2017-09-10] MEDS: Nicotine 14 MG PATCH.TD24 TD SCH (08:26)
[2017-09-10] MEDS: Pantoprazole 40 MG VIAL IVP SCH (08:26)
--- NOTE | 2017-09-10 11:26 | Internal Med Progress Note ---
Date of Encounter: 09/10/17 Time of Encounter: 11:25 - Assessment and plan (1) ETOH abuse Current Visit: Yes Status: Chronic Assessment and plan: Hx of ETOH abuse. He reports that he mainly drink 6 alcoholic beverages on the weekends. However, he also admits that he sometimes drinks more frequently. He denies ever going through withdrawal. His last alcoholic beverage was Monday September 04, 2017. Continue CIWA protocol Continue B12, Folate and thiamine, continue (2) Current smoker Current Visit: Yes Status: Chronic Assessment and plan: Discussed smoking cessation. Nicotine patch (3) Pancreatic mass Current Visit: Yes Status: Ruled-out Assessment and plan: Ruled out by MRI Oncology consulted by admiting team, follow recs (4) DVT prophylaxis Current Visit: Yes Status: Acute Assessment and plan: Heparin 5000 units SC BID (5) Chronic pancreatitis Current Visit: Yes Status: Acute Assessment and plan: acute on chronic Improving MRI showed tail of pancreas with inflammation, atrophy of pancreas signifying chronicity, as well as pseudocyst due to alcohol lipid panel unremarkable no stones on CT/MRI Continue pain control and supportive care clear liquid diet and advance as tolerated Qualifiers: Pancreatitis type: alcohol induced Qualified Code(s): K86.0 - Alcohol- induced chronic pancreatitis (6) Abdominal pain Current Visit: Yes Status: Acute Assessment and plan: see above Qualifiers: Abdominal location: generalized Qualified Code(s): R10.84 - Generalized abdominal pain (7) Pancreatic pseudocyst Current Visit: Yes Status: Acute Assessment and plan: per MRI Follow up protocol is 1 year - Time Spent With Patient Total time spent is greater than 50% in coordination of care (as documented) at patient's floor/unit and/or counseling patient: - Subjective Interval history: Seen and examined at bedside Reports pain is improved and is wanting a regular diet, obliged, will monitor for rest of the day Not in alcohol withdrawal at this time - Constitutional Vitals: Temp Pulse Resp BP Pulse Ox 97.5 F L 51 16 143/85 93 09/10/17 07:24 09/10/17 07:24 09/10/17 07:24 09/10/17 07:24 09/10/17 07:24 General appearance: Present: cooperative, A&O X 3, pleasant, no acute distress, answers questions appropriately - Head Head exam: Present: atraumatic, normocephalic - Eye Eye exam: Present: PERRL, conjuntiva pink, sclera anicteric Pupils: Present: PERRL - Neck Neck exam general surgery: Present: supple, trachea midline. Absent: lymphadenopathy - Respiratory Respiratory exam: Present: CTAB. Absent: accessory muscle use, rales, rhonchi, wheezes - Cardiovascular Cardiovascular exam: Present: RRR, +S1, +S2. Absent: diastolic murmur, gallop, rubs, systolic murmur - GI/Abdominal GI/Abdominal exam: Present: normal bowel sounds, soft, no peritoneal signs. Absent: distended, tenderness - Extremities Exam Extremities exam: Present: warm, radial pulses palpable and symmetrical. Absent : calf tenderness, cyanotic, pedal edema - Neurological Exam Neurological exam: Present: alert, CN II-XII intact, oriented X3, no focal deficits. Absent: pronater drift, facial droop, speech deficit - Skin Skin exam: Present: dry, intact Internal Medicine: Result - Labs CBC & Chem 7: 09/09/17 05:05 09/09/17 05:05 Consult Discharge Plan - Plan Referrals: [facility] [Outside] - 09/22/17 10:15 am
--- NOTE | 2017-09-10 14:42 | Oncology Inp Consult Note ---
Date of Encounter: 09/10/17 Time of Encounter: 14:42 Assessment and Plan (1) Pancreatic pseudocyst Status: Acute Assessment and plan: MRI abdomen 09/09/2017 reveals acute pancreatitis involving the pancreatic tail with no findings of parenchymal necrosis or hemorrhage. New 1.2 cm x 0.6 cm x 1.3 cm cystic lesion in the pancreatic tail, most likely a pseudocyst. Recommend repeat pancreas protocol MRI in 1 year per the ACR recommendations for incidental pancreatic cysts. As mentioned, pancreatic cyst does not appear malignant, consistent with pseudocyst, recommend continued monitoring as detailed above. Discussed imaging results with patient today at bedside. Copy of report given to patient, recommended he discuss with PCP and continue to follow up with PCP at [place] for continued surveillance. He is now tolerating a regular diet, has had an improvement in his symptoms and planned for discharge home likely tomorrow. He has not experienced any symptoms of alochol withdrawal during his stay per [facility] team notes. Recommended he stop regular alcohol use. Current smoker 1ppd/day, smoking cessation recommended, he is not interested in quitting at this time. Recommend screening colonoscopy on outpatient non emergent basis if he has not already had screening colonoscopy after the age of 50. At this time he does not need any further oncologic workup or evaluation for pancreatic lesion that now appears as pancreatic pseudocyst by MRI. Please feel free to contact for any further questions or concerns, at this time oncology will sign off. The above plan was discussed with Dr. Mccormick who agrees with plan of care. - Data of Consult Patient: new to practice Consult date: 09/10/17 Requesting Physician: Nikolai Hallman MD Primary Care Provider: PCP [place] - Consult Narrative Reason for consult: Pancreatic cyst History of present illness: Mr. Manley is a 52 year old male with past medical history significant for arthritis, osteoporosis, HLD, ETOH abuse and pancreatitis. He presented to [facility] with complaint of worsening abdominal pain x3 days with N/V/D. He does use alcohol on a regular basis (about 2-3 beers/day on weekdays, 12 pack on weekend per patient) and has a history of pancreatitis. His workup did not show any elevations in LFT's; lipase is high normal. However CT of the abdomen which was completed at the [facility] reveals a focal decreased enhancement in the tail of the pancreas measuring 0.4 x 0.8 x 1.1 cm that is concerning for pancreatic carcinoma. He was transferred to [facility] for further workup. He reports no changes in appetite prior to his acute hospitalization, no unintended weight loss. Current smoker, 1PPD x 30 years. Denies fevers, chills, lymphadenopathy or night sweats. Past Med Surg Social Fam HX - Past Medical History Medical history: arthritis, osteoporosis, other Psychiatric history: no psych history - Past Surgical History Surgical History: cholecystectomy - Social History Smoking Status: Never smoker Smokeless Tobacco Status: No Alcohol use: heavy Drug use: none - Family History Mother Family Member Ethnicity: Non- Living Status: Still Living Hx Family Cancer: Yes (breast ca) Hx Family Endocrine Disorder: Yes Medications and Allergies No Known Home Drugs 04/26/17 [History] 3 Allergy/AdvReac Type Severity Reaction Status Date / Time Penicillins [PCN] Allergy Rash Verified 01/20/16 16:19 Review of systems: ROS obtained reflects current symptoms reported at today's visit, for ROS upon presentation refer to HPI Constitutional: Present: weakness. Absent: anorexia, chills, fatigue, fever(s) , headache(s), weight loss Eyes: Absent: change in vision Nose, mouth and throat: Absent: dysphagia Cardiovascular: Absent: chest pain Respiratory: Absent: cough, dyspnea Gastrointestinal: Absent: abdominal pain, diarrhea, heartburn, hematemesis, hematochezia, melena, nausea, vomiting Additional comments: denies dysuria or hematuria Musculoskeletal: Absent: abnormal gait Integumentary: Absent: wounds Neurological: Absent: focal weakness, frequent falls Psychiatric: Absent: change in appetite Hematologic/Lymphatic: Absent: easy bleeding, lymphadenopathy Oncology - Exam - Constitutional Vitals: Temp Pulse Resp BP Pulse Ox 97.6 F 75 16 154/94 97 09/10/17 11:27 09/10/17 11:27 09/10/17 11:27 09/10/17 11:27 09/10/17 11:27 General appearance: cooperative, no acute distress, no febrile - Head Head exam: Present: atraumatic - Eye Eye exam: Present: normal appearance - ENT ENT exam: Present: mucous membranes moist - Respiratory Respiratory exam: Present: wheezes. Absent: respiratory distress - Cardiovascular Cardiovascular exam: Present: RRR, +S1, +S2 - GI/Abdominal GI/Abdominal exam: Present: normal bowel sounds, soft, tenderness Additional comments: diffuse tenderness, improving per patient - Extremities Exam Extremities exam: Present: normal inspection. Absent: calf tenderness - Neurological Exam Neurological exam: Present: alert, oriented X3, no focal deficits, strengths equal and symetr throughout - Psychiatric Psychiatric exam: Present: normal affect, normal mood - Skin Skin exam: Present: dry, intact, normal color, warm Consult Discharge Plan - Plan Referrals: [facility] [Outside] - 09/22/17 10:15 am
[2017-09-11] MEDS: *HR* Heparin 5,000 UNIT/ML VIAL SQ SCH (05:32)
[2017-09-11 10:36] VITALS: BP 169/94
[2017-09-11] MEDS: Nicotine 14 MG PATCH.TD24 TD SCH (10:46)
[2017-09-11] MEDS: Folic Acid 1 MG TABLET PO SCH (10:47)
[2017-09-11] MEDS: Vitamin B Complex/Vit C/Vit E 1 EACH TABLET PO SCH (10:47)
[2017-09-11] MEDS: Thiamine (B-1) 100 MG TABLET PO SCH (10:47)
--- NOTE | 2017-09-11 10:57 | Discharge Summary ---
- NOTES TO OUTPATIENT PROVIDER Notes to Outpatient Provider: Patient was admitted for acute on chronic pancreatitis secondary to chronic alcohol abuse. There was initial concern for pancreatic mass on CAT scan done from the family, however, abdominal MRI done here shows is a pancreatic pseudocyst. Recommend repeat MRI in one year. Date of Encounter: 09/11/17 Time of Encounter: 10:55 - Discharge Diagnosis (1) ETOH abuse Priority: Secondary Status: Chronic Comments: Encouraged. Cargo Router Evaluated the Patient and Gave Processes. Discharged on Multivitamins, Thiamine and Folic Acid. (2) Current smoker Priority: Secondary Status: Chronic Comments: Discussed smoking cessation. Wishes to self quit (3) Pancreatic mass Priority: Primary Status: Ruled-out Comments: Ruled out by MRI Oncology consulted by admitting team, no further intervention necessary as this has been ruled out (4) DVT prophylaxis Priority: Primary Status: Resolved (5) Chronic pancreatitis Priority: Primary Status: Acute Comments: acute on chronic Improved with supportive care, IVF hydration and pain control Due to alcohol use MRI showed tail of pancreas with inflammation, atrophy of pancreas signifying chronicity, as well as pseudocyst lipid panel unremarkable no stones on CT/MRI Tolerating diet, ambulatory and in no pain Safe for discharge home Follow up with PCp and repeat MRi in one year per protocol Qualifiers: Pancreatitis type: alcohol induced Qualified Code(s): K86.0 - Alcohol- induced chronic pancreatitis (6) Abdominal pain Priority: Primary Status: Resolved Qualifiers: Abdominal location: generalized Qualified Code(s): R10.84 - Generalized abdominal pain (7) Pancreatic pseudocyst Priority: Primary Status: Acute Comments: per MRI Follow up protocol is 1 year Hospital course: Mr. Manley is a 52 year old male with alcohol abuse Admitted and managed for acute on chronic pancreatitis IMproved with supportive care and pain control Seen and evaluated this morning, ambulatory, tolerating regular diet Safe to discharge home See each diagnoses for details Follow up with PCP Blood pressure occasionally elevated during hospital stay Follow up with PCP for monitoring and possible initiation of medications if persistent Discharge discussed with: patient, nurse - Time Spent with Patient Total time spent providing and/or coordinating discharge services: Less than 30 minutes - Discharge Medications Prescriptions: Folic Acid 1 mg PO DAILY #30 tablet Thiamine (B-1) [Vitamin B-1] 100 mg PO DAILY #30 tablet Vitamin B Complex/Vit C/Vit E [Stresstab] 1 each PO DAILY #30 tablet Home Medications: Folic Acid 1 mg PO DAILY #30 tablet 09/11/17 [Rx] Thiamine (B-1) [Vitamin B-1] 100 mg PO DAILY #30 tablet 09/11/17 [Rx] Vitamin B Complex/Vit C/Vit E [Stresstab] 1 each PO DAILY #30 tablet 09/11/17 [ Rx] Allergies/Adverse Reactions: 3 Allergy/AdvReac Type Severity Reaction Status Date / Time Penicillins [PCN] Allergy Rash Verified 01/20/16 16:19 Date of admission: 09/08/17 18:14 [facility] care physician: [facility] Consults: 09/08/17 20:36 Consult to Oncology [CONS] Routine Consulting Provider: Oncology [facility] Reason for Consult: New pancreatic mass Time Notified: 20:36 Call Completed: Yes 09/09/17 16:43 Consult to Boat Washer [CONS] Routine Reason for SW Consult: Hx Alcohol abuse, please give patient resources. Discharging clinician: Nikolai Hallman Anticipated date of discharge: 09/11/17 - Constitutional Vitals: Temp Pulse Resp BP Pulse Ox 97.8 F 69 16 169/94 98 09/11/17 10:32 09/11/17 10:32 09/11/17 10:32 09/11/17 10:32 09/11/17 10:32 General appearance: Present: cooperative, A&O X 3, pleasant, no acute distress, answers questions appropriately - Head Head exam: Present: atraumatic, normocephalic - Eye Eye exam: Present: PERRL, conjuntiva pink, sclera anicteric Pupils: Present: PERRL - Neck Neck exam general surgery: Present: supple, trachea midline. Absent: lymphadenopathy - Respiratory Respiratory exam: Present: CTAB. Absent: accessory muscle use, rales, rhonchi, wheezes - Cardiovascular Cardiovascular exam: Present: RRR, +S1, +S2. Absent: diastolic murmur, gallop, rubs, systolic murmur - GI/Abdominal GI/Abdominal exam: Present: normal bowel sounds, soft, no peritoneal signs. Absent: distended, tenderness - Extremities Exam Extremities exam: Present: warm, radial pulses palpable and symmetrical. Absent : calf tenderness, cyanotic, pedal edema - Neurological Exam Neurological exam: Present: alert, CN II-XII intact, oriented X3, no focal deficits. Absent: pronater drift, facial droop, speech deficit - Skin Skin exam: Present: dry, intact - Patient Status Disposition: Home, Self-Care Condition: Good Functional capacity at discharge: independent ambulation Overall status at discharge: patient is back to baseline - Discharge Instructions Follow Up With: [facility] [Outside] - 09/22/17 10:15 am - Diet and Activity Activity: resume usual activities as tolerated Diet: low salt diet - VTE Documentation of Mechanical Device: Intermittent pneumatic compression device
== END 2017-09-11 11:32 | disposition home or self-care (01) | DRG 439 ==
LOC: EMEROO 16:50 → 3ANU 18:14
PROVIDERS: ADMIT Internal Medicine; ATTEND Internal Medicine

== ENCOUNTER 2018-01-02 04:33 | Inpatient (IN) ==
[2018-01-02] MEDS ORDERED: 0.9 % Sodium Chloride 1,000 ML IVC ONE (04:43)
[2018-01-02] MEDS ORDERED: Pantoprazole 40 MG VIAL IVP ONE (04:45)
[2018-01-02] MEDS ORDERED: Ondansetron 4 MG/2 ML VIAL IVP ONE (04:45)
[2018-01-02] MEDS ORDERED: *HR* FentaNYL (PF) 100 MCG/2 ML VIAL IVP ONE (04:45)
[2018-01-02] MEDS ORDERED: Isovue-370 500 ML INFUS..BTL IV ONE (04:46)
--- NOTE | 2018-01-02 04:51 | Emergency Department Note ---
Disposition Clinical Impression: Alcoholism Abdominal pain Qualifiers: Abdominal location: epigastric Qualified Code(s): R10.13 - Epigastric pain Acute pancreatitis Qualifiers: Pancreatitis type: unspecified pancreatitis type Acute pancreatitis complication: unspecified Qualified Code(s): K85.90 - Acute pancreatitis without necrosis or infection, unspecified Disposition: Admitted As Inpatient Condition: Fair [facility]errals: [facility] [Primary Care Provider] - Forms: ED Satisfaction Letter, Work/School Release Time of Disposition: 06:34 Abdominal Pain HPI - General Chief Complaint: ED Abdominal Pain Stated Complaint: abd pn Time Seen by Provider: 01/02/18 04:34 Source: patient, EMS Mode of arrival: EMS Limitations: no limitations Nursing Notes Reviewed: Yes Vital Signs Reviewed: Yes - History of Present Illness HPI Narrative: 52-year-old male with history of alcoholism pancreatitis presents for evaluation of epigastric abdominal pain. Patient states symptom onsets been over the past week.In the epigastrium. Similar to prior issues with pancreatitis. Patient does admit to alcohol use yesterday. Denies history of gallbladder disease. CT does not have his gallbladder anymore. Notes pain with no aggravating or alleviating symptoms. Notes nausea with dry heaves. No fevers. Denies any diarrhea but states that his bowel movements are not completely normal. Denies any urinary complaints. No chest pain or shortness of breath. Pain Scale: 10 - Related Data Previous Rx's Medication Instructions Recorded Folic Acid 1 mg PO DAILY #30 tablet 09/11/17 Thiamine (B-1) [Vitamin B-1] 100 mg PO DAILY #30 tablet 09/11/17 Vitamin B Complex/Vit C/Vit E 1 each PO DAILY #30 tablet 09/11/17 [Stresstab] Allergies Allergy/AdvReac Type Severity Reaction Status Date / Time Penicillins [PCN] Allergy Rash Verified 01/20/16 16:19 All systems ED: reviewed and negative except as stated. Constitutional: Denies: fever Cardiovascular: Denies: chest pain Respiratory: Denies: cough, dyspnea Gastrointestinal: Reports: abdominal pain, nausea, vomiting. Denies: diarrhea Abdominal Pain PMH - Past Medical History Medical history: Reports: arthritis, osteoporosis, other Male Surgical History: Reports: no surgical history Psychiatric history: Reports: no psych history - Social History Smoking status: Current every day smoker Alcohol use: Reports: heavy, recent Drug use: Reports: none Physical Exam - General Limitations: no limitations General appearance: alert, in no apparent distress - Head Head exam: atraumatic, normocephalic, normal inspection - Eye Eye exam: Present: normal appearance, EOMI - ENT ENT exam: normal exam, normal oropharynx, mucous membranes moist - Neck Neck exam: Present: normal inspection - Chest Chest inspection: Present: normal inspection - Respiratory Respiratory exam: Present: normal lung sounds bilaterally. Absent: respiratory distress - Cardiovascular Cardiovascular exam: Present: regular rate, normal rhythm. Absent: systolic murmur - Abdominal Exam Abdominal exam: Present: soft, tenderness, guarding (Voluntary). Absent: distention, rebound - Extremities Exam Extremities exam: Present: normal inspection. Absent: pedal edema - Expanded Lower Extremity Exam Neurovascular/Tendon exam: Present: normal capillary refill - Back Exam Back exam: Present: normal inspection. Absent: CVA tenderness (R), CVA tenderness (L) - Neurological Exam Neurological exam: Present: alert, oriented X3 - Skin Skin exam: Present: warm, dry, intact, normal color Course Course Narrative: Patient presents for concerns of pancreatitis. Patient does have a history of alcoholism. Patient clinically does not appear intoxicated but appears uncomfortable moving around on the stretcher. Patient will get basic labs as well as CT of the abdomen pelvis with IV contrast. Disposition likely admission. - Reevaluation(s) Reevaluation #1: Patient seen and examined. Patient states that pain medicine did not improve his pain however patient still notes some diffuse pain. Time: 05:36 Reevaluation #2: Patient seen and examined. Patient states the pain medicine has improved his symptoms. Abdominal exam is unchanged. Nonsurgical. Patient's plan of care was discussed with him at bedside. Concerns of acute pancreatitis. Alcohol cessation discussed. Time: 06:41 Vital Signs Temperature 97.8 F 01/02/18 04:34 Pulse Rate 72 01/02/18 04:34 Respiratory Rate 20 01/02/18 04:34 Blood Pressure 139/75 01/02/18 04:34 O2 Sat by Pulse Oximetry 100 01/02/18 04:34 Temperature 97.8 F 01/02/18 04:34 Pulse Rate 66 01/02/18 06:15 Respiratory Rate 20 01/02/18 06:15 Blood Pressure 151/99 01/02/18 06:15 O2 Sat by Pulse Oximetry 100 01/02/18 06:15 Oxygen Delivery Oxygen Delivery Room Air Abdominal Pain - MDM Narrative Medical decision making narrative: Patient with a history of alcohol is presents for evaluation of abdominal pain. Patient clinically has pancreatitis with symptoms suggestive of. Patient admits to alcohol use yesterday. Patient is clinically sober. Patient had basic lab work and CT scan and pelvis which showed inflammation of the pancreatic tail consistent with pancreatitis. No evidence of complication or pancreatic necrosis. Patient's required IV opioids as well as ketamine for pain control. Patient's also been having some nausea. Concerns the patient would not tolerate outpatient management of his acute pancreatitis. Patient would benefit from symptomatic treatment is IV pain medication dietary modification alcohol counseling prior to disposition. Patient is agreeable with this plan of care. - Lab Data Lab results reviewed: Yes I reviewed the patient's lab results. Result diagrams: 01/02/18 04:42 01/02/18 04:42 Lab Results 01/02/18 01/02/18 01/02/18 Range/Units 04:42 04:42 04:42 WBC 12.1 H (4.3-11.1) K/mcL RBC 4.97 (4.19-5.50) M/mcL Hgb 16.8 (12.9-16.9) g/dL Hct 46.8 (37.5-50.1) % MCV 94.2 (83.0-100.0) fL MCH 33.8 H (28.0-33.3) pg MCHC 35.9 H (31.6-35.5) g/dL RDW 14.4 (11.5-14.5) % Plt Count 231 (140-400) K/mcL MPV 9.8 (9.4-12.4) fL Immature Gran % 0.5 (0-4) % Seg Neutrophils % 58.2 % Lymphocytes % 25.9 % Monocytes % 11.1 % Eosinophils % 3.5 % Basophils % 0.8 % Neutrophils # 7.1 (1.6-8.9) K/mcL Lymphocytes # 3.1 (0.6-4.6) K/mcL Monocytes # 1.3 (0.0-1.3) K/mcL Eosinophils # 0.4 (0.0-0.6) K/mcL Basophils # 0.1 (0.0-0.2) K/mcL PT 11.6 (9.4-12.1) Seconds INR 1.0 Sodium 135 L (136-145) mEq/L Potassium 4.3 (3.5-5.1) mEq/L Chloride 101 (98-107) mEq/L Carbon Dioxide 26 (23-29) mEq/L BUN 7 (6-20) mg/dL Creatinine 0.77 (0.70-1.30) mg/dL Est GFR ( Amer) > 60 (> 60) Est GFR (Non-Af Amer) > 60 (> 60) BUN/Creatinine Ratio 9 (6-26) Glucose 126 H (70-105) mg/dL Calculated Osmolality 280 (280-300) Lactic Acid (0.5-2.2) mmol/L Calcium 9.6 (8.6-10.3) mg/dL Total Bilirubin 0.4 (0.3-1.0) mg/dL Direct Bilirubin 0.1 (0.0-0.2) mg/dL Indirect Bilirubin 0.3 (0.0-1.2) mg/dL AST 13 (13-39) Units/L ALT 12 (7-52) Units/L Alkaline Phosphatase 115 H (34-104) Units/L Lactate Dehydrogenase 136 L (140-271) Units/L Troponin I < 0.03 (< 0.04) ng/mL Serum Total Protein 7.6 (6.4-8.9) g/dL Albumin 4.0 (3.5-5.7) g/dL Globulin 3.6 H (2.4-3.5) g/dL Albumin/Globulin Ratio 1.1 (1.1-2.2) Lipase 38 (11-82) Units/L 01/02/ Range/Units 04:54 WBC (4.3-11.1) K/mcL RBC (4.19-5.50) M/mcL Hgb (12.9-16.9) g/dL Hct (37.5-50.1) % MCV (83.0-100.0) fL MCH (28.0-33.3) pg MCHC (31.6-35.5) g/dL RDW (11.5-14.5) % Plt Count (140-400) K/mcL MPV (9.4-12.4) fL Immature Gran % (0-4) % Seg Neutrophils % % Lymphocytes % % Monocytes % % Eosinophils % % Basophils % % Neutrophils # (1.6-8.9) K/mcL Lymphocytes # (0.6-4.6) K/mcL Monocytes # (0.0-1.3) K/mcL Eosinophils # (0.0-0.6) K/mcL Basophils # (0.0-0.2) K/mcL PT (9.4-12.1) Seconds INR Sodium (136-145) mEq/L Potassium (3.5-5.1) mEq/L Chloride (98-107) mEq/L Carbon Dioxide (23-29) mEq/L BUN (6-20) mg/dL Creatinine (0.70-1.30) mg/dL Est GFR ( Amer) (> 60) Est GFR (Non-Af Amer) (> 60) BUN/Creatinine Ratio (6-26) Glucose (70-105) mg/dL Calculated Osmolality (280-300) Lactic Acid 1.3 (0.5-2.2) mmol/L Calcium (8.6-10.3) mg/dL Total Bilirubin (0.3-1.0) mg/dL Direct Bilirubin (0.0-0.2) mg/dL Indirect Bilirubin (0.0-1.2) mg/dL AST (13-39) Units/L ALT (7-52) Units/L Alkaline Phosphatase (34-104) Units/L Lactate Dehydrogenase (140-271) Units/L Troponin I (< 0.04) ng/mL Serum Total Protein (6.4-8.9) g/dL Albumin (3.5-5.7) g/dL Globulin (2.4-3.5) g/dL Albumin/Globulin Ratio (1.1-2.2) Lipase (11-82) Units/L - Radiology Data Radiology results reviewed: Yes I reviewed the patient's radiology results. Abdomen/Pelvis CT 01/02/18 04:46 IMPRESSION: 1. Inflammation about the pancreatic tail concerning for acute pancreatitis. 2. Mildly prominent retroperitoneal lymph nodes measuring up to 13 mm. These were present on prior of 04/26/2017. D/ / Jewel Barker / Jewel Barker Interpreting Provider: Jewel Barker - EKG Data EKG attestation: Yes I reviewed and interpreted this EKG. EKG shows normal: sinus rhythm Rate: normal Rhythm: NSR [place]/QRS: normal Interpretation: no acute changes, nonspecific ST-T wave changes S.B.AMarcello - SIain Situation: Demographics Background: Presenting Complaint Assessment: Vital Signs, Patient/Family Expectation Recommendation: Barrier(s) to disposition, Recommendation based on pending studies, treatments, or consults S.B.AMarcello Report Given to: Dr. Victorino Wilson Repor Time: 06:34 Attestation Statement - Attestation Attestation: I examined this patient and my medical decision-making was reviewed with the Resident Physician. I agree with the documented findings, disposition and treatment plan as described except to the extent set forth below. Findings consistent with alcohol pancreatitis. Patient will be admitted for pain management. CT scan is pending.
[2018-01-02 04:55] LABS: Basophils # 0.1 K/mcL (0.0-0.2); Basophils % 0.8 %; Eosinophils # 0.4 K/mcL (0.0-0.6); Eosinophils % 3.5 %; Hematocrit 46.8 % (37.5-50.1); Hemoglobin 16.8 g/dL (12.9-16.9); Immature Granulocytes % 0.5 % (0-4); Lymphocytes # 3.1 K/mcL (0.6-4.6); Lymphocytes % 25.9 %; Mean Corpuscular HGB Conc 35.9 g/dL (31.6-35.5); Mean Corpuscular Hemoglobin 33.8 pg (28.0-33.3); Mean Corpuscular Volume 94.2 fL (83.0-100.0); Mean Platelet Volume 9.8 fL (9.4-12.4); Monocytes # 1.3 K/mcL (0.0-1.3); Monocytes % 11.1 %; Neutrophils # 7.1 K/mcL (1.6-8.9); Platelet Count 231 K/mcL (140-400); Red Blood Count 4.97 M/mcL (4.19-5.50); Red Cell Distribution Width 14.4 % (11.5-14.5); Segmented Neutrophils % 58.2 %
[2018-01-02 05:05] LABS: Prothrombin Time 11.6 Seconds (9.4-12.1)
[2018-01-02 05:17] LABS: Troponin I < 0.03 ng/mL (< 0.04)
[2018-01-02 05:18] LABS: Alanine Aminotransferase 12 Units/L (7-52); Albumin/Globulin Ratio 1.1 (1.1-2.2); Alkaline Phosphatase 115 Units/L (34-104); Aspartate Amino Transferase 13 Units/L (13-39); BUN/Creatinine Ratio 9 (6-26); Bilirubin,Direct 0.1 mg/dL (0.0-0.2); Bilirubin,Indirect 0.3 mg/dL (0.0-1.2); Bilirubin,Total 0.4 mg/dL (0.3-1.0); Blood Urea Nitrogen 7 mg/dL (6-20); Calcium 9.6 mg/dL (8.6-10.3); Carbon Dioxide 26 mEq/L (23-29); Chloride 101 mEq/L (98-107); Globulin 3.6 g/dL (2.4-3.5); Glucose 126 mg/dL (70-105); Lactate Dehydrogenase 136 Units/L (140-271); Lipase 38 Units/L (11-82); Osmolality,Calculated 280 (280-300); Potassium 4.3 mEq/L (3.5-5.1); Sodium 135 mEq/L (136-145); Total Protein 7.6 g/dL (6.4-8.9); eGFR For Non-African Americans > 60 (> 60)
[2018-01-02] MEDS ORDERED: Ketamine *HR* 15 MG in 0.9 % Sodium Chloride 100 ML IVPB ONE (05:36)
[2018-01-02] MEDS ORDERED: Naloxone 0.4 MG/ML INJ IVP PRN (07:13)
[2018-01-02] MEDS ORDERED: Acetaminophen 325 MG TABLET PO PRN (07:13)
[2018-01-02 07:14] LABS: Bilirubin,Urine Negative (Negative); Blood,Urine Negative (Negative); Clarity,Urine Clear (Clear); Color,Urine Yellow (Yellow); Glucose,Urine (UA) Normal (Normal); Ketones,Urine 15 mg/dL (Negative); Leukocyte Esterase,Urine Negative (Negative); Nitrite,Urine Negative (Negative); PH,Urine 7.5 pH Units (5.0-8.0); Protein,Urine Negative (Neg-Trace); Specific Gravity,Urine > 1.030 (1.010-1.025); Urobilinogen,Urine Normal (Normal)
--- NOTE | 2018-01-02 08:02 | Internal Med History&Physical ---
Date of Encounter: 01/02/18 Time of Encounter: 07:10 Internal Medicine - H&P: HPI Chief complaint: abdominal pain History of present illness: Mr. Manley is a 52 year old male past medical history of alcohol abuse, pancreatitis, pancreatic pseudocyst at the tail, presented to the ED with 1 week history of epigastric pain. It was gradually worsening has decided to come to the ED overnight. No cane in the epigastrium, sharp/cramping, radiates to the back, no aggravating or relieving factors. Unfortunately, he continues to drink "a couple of drinks per night". He states that he was evaluated for the pancreatic pseudocyst at the [facility] and was told to monitor. Denies fever/ chills, mild nausea but no vomiting, chest pain, shortness of breath, cough, obstipation, or dysuria. No jaundice, joint pain, or rash. Denies any history of alcohol withdrawal or seizure. In the ED, he was afebrile and hemodynamically stable. Back showed mild leukocytosis of 12.1, hematocrit of 46.8, normal BUN/creatinine, and normal lactic acid. Lipase was also normal. However, CT abdomen and pelvis did demonstrate stranding around the pancreatic tail consistent with the acute pancreatitis. He was given IV fluid, Zofran, and analgesics in the ED. Past Med Surg Social Fam HX - Past Medical History Attestation: Yes The following information was validated with the patient. Medical history: arthritis, osteoporosis, other Additional medical history: pancreatitis, pancreatic pseudocyst at the tail Psychiatric history: no psych history - Past Surgical History Surgical History: cholecystectomy - Social History Smoking Status: Current every day smoker Smokeless Tobacco Status: No Alcohol use: heavy, recent Drug use: none - Family History Mother Family Member Ethnicity: Non- Living Status: Still Living Hx Family Cancer: Yes (breast ca) Hx Family Endocrine Disorder: Yes Internal Medicine - H&P: Meds Folic Acid 1 mg PO DAILY #30 tablet 09/11/17 [Rx] Thiamine (B-1) [Vitamin B-1] 100 mg PO DAILY #30 tablet 09/11/17 [Rx] Vitamin B Complex/Vit C/Vit E [Stresstab] 1 each PO DAILY #30 tablet 09/11/17 [ Rx] 3 Allergy/AdvReac Type Severity Reaction Status Date / Time Penicillins [PCN] Allergy Rash Verified 01/02/18 07:28 All Systems PM: A 10-system review of systems was performed and is negative for pertinent findings except as documented above in the HPI. - Constitutional Vitals: Temp Pulse Resp BP Pulse Ox 97.8 F 66 20 151/99 99 01/02/18 04:34 01/02/18 06:15 01/02/18 06:15 01/02/18 06:15 01/02/18 07:31 Exam: General: Alert and oriented HEENT:EOM, pupils equal, round, and reactive. No jaundice Cardiovascular:Normal S1 & S2, no murmurs or gallops. No JVD. Pulse regular. Lungs:Normal breath sounds, no wheezes or crackles. Abdomen:Soft, mild epigastric tenderness without rebound or guarding. Extremities:No deformity, no edema or tenderness, no joint swelling. Neurological:Normal cognition and motor skills. Skin:Normal color, no rash, no lesions. Pulses:Carotid and radial pulses normal +2. Rest of the physical exam is non-contributory Internal Med - H&P Results - Labs CBC & Chem 7: 01/02/18 04:42 01/02/18 04:42 Labs: Urine 01/02/18 Range/Units 07:04 Urine Color Yellow (Yellow) Urine Clarity Clear (Clear) Urine pH 7.5 (5.0-8.0) pH Units Ur Specific [place] > 1.030 H (1.010-1.025) Urine Protein Negative (Neg-Trace) mg/dL Urine Glucose (UA) Normal (Normal) mg/dL - Assessment and plan (1) Acute pancreatitis Current Visit: Yes Status: Acute Assessment and plan: Presented with epigastric pain radiating to the back, along the CT finding positive for pancreatitis. Lipase is normal however. IV fluid, nothing by mouth, analgesics Counseling for alcohol cessation provided Qualifiers: Pancreatitis type: alcohol induced Acute pancreatitis complication: unspecified Qualified Code(s): K85.20 - Alcohol induced acute pancreatitis without necrosis or infection (2) Pancreatic pseudocyst Current Visit: No Status: Chronic Assessment and plan: He was noted to have a small pancreatic pseudocyst on MRI dated September 2017 Given his normal lipase, if WBC continues to rise, may have to consider infected pseudocyst as differential will monitor (3) ETOH abuse Current Visit: No Status: Chronic Assessment and plan: Counseling as above No history of withdrawal or seizure (4) Current smoker Current Visit: No Status: Chronic Assessment and plan: Counseling for smoking cessation given NRT (5) DVT prophylaxis Current Visit: No Status: Resolved (6) DVT prophylaxis Current Visit: No Status: Acute Assessment and plan: SQ heparin - Time Spent With Patient Total time spent is greater than 50% in coordination of care (as documented) at patient's floor/unit and/or counseling patient:
[2018-01-02] MEDS ORDERED: Ondansetron 4 MG/2 ML VIAL IVP PRN (08:35)
[2018-01-02] MEDS: Nicotine 21 MG PATCH.TD24 TD SCH (08:35)
[2018-01-02] MEDS: Ringers Solution, Lactated 1,000 ML IVC SCH ×2 (08:35→12:42)
[2018-01-02] MEDS: *HR* HYDROcodone/Acet 5/325 mg TABLET PO PRN ×4 (08:35→22:35)
[2018-01-02] MEDS: *HR* OxyCODONE Immed Rel 5 MG TABLET PO PRN ×3 (10:03→21:36)
[2018-01-02] MEDS: *HR* Heparin 5,000 UNIT/ML VIAL SQ SCH (16:52)
[2018-01-02] MEDS: PRAVASTATIN SODIUM 5 MG PO SCH (20:27)
[2018-01-03] MEDS: *HR* HYDROcodone/Acet 5/325 mg TABLET PO PRN ×5 (02:31→19:31)
[2018-01-03] MEDS: *HR* OxyCODONE Immed Rel 5 MG TABLET PO PRN ×3 (04:05→16:19)
[2018-01-03] MEDS: *HR* Heparin 5,000 UNIT/ML VIAL SQ SCH ×2 (05:51→17:45)
[2018-01-03 06:17] LABS: Basophils # 0.1 K/mcL (0.0-0.2); Basophils % 0.7 %; Eosinophils # 0.3 K/mcL (0.0-0.6); Eosinophils % 3.2 %; Hematocrit 44.3 % (37.5-50.1); Hemoglobin 15.4 g/dL (12.9-16.9); Immature Granulocytes % 0.5 % (0-4); Lymphocytes # 2.2 K/mcL (0.6-4.6); Lymphocytes % 20.4 %; Mean Corpuscular HGB Conc 34.8 g/dL (31.6-35.5); Mean Corpuscular Hemoglobin 32.8 pg (28.0-33.3); Mean Corpuscular Volume 94.5 fL (83.0-100.0); Mean Platelet Volume 10.4 fL (9.4-12.4); Monocytes % 9.2 %; Neutrophils # 7.1 K/mcL (1.6-8.9); Platelet Count 230 K/mcL (140-400); Red Blood Count 4.69 M/mcL (4.19-5.50); Red Cell Distribution Width 14.4 % (11.5-14.5)
[2018-01-03 06:38] LABS: BUN/Creatinine Ratio 9 (6-26); Blood Urea Nitrogen 5 mg/dL (6-20); Calcium 9.2 mg/dL (8.6-10.3); Carbon Dioxide 25 mEq/L (23-29); Chloride 102 mEq/L (98-107); Chol/HDL Ratio 3.9 (0-4.9); Cholesterol 168 mg/dL (< 200); Glucose 101 mg/dL (70-105); HDL Cholesterol 43 mg/dL (40-59); LDL Cholesterol,Calculated 95 mg/dL (0-99); Magnesium 1.9 mg/dL (1.6-2.6); Osmolality,Calculated 279 (280-300); Potassium 3.7 mEq/L (3.5-5.1); Sodium 136 mEq/L (136-145); Triglycerides 151 mg/dL (< 150); eGFR For Non-African Americans > 60 (> 60)
[2018-01-03] MEDS: Nicotine 21 MG PATCH.TD24 TD SCH (08:09)
--- NOTE | 2018-01-03 10:13 | Internal Med Progress Note ---
Date of Encounter: 01/03/18 Time of Encounter: 09:30 - Assessment and plan (1) Acute pancreatitis Current Visit: Yes Status: Acute Assessment and plan: Presented with epigastric pain radiating to the back, along the CT finding positive for pancreatitis. Lipase is normal however. SLowly improving Clears today, continue IV fluid and analgesics Counseling for alcohol cessation provided Qualifiers: Pancreatitis type: alcohol induced Acute pancreatitis complication: unspecified Qualified Code(s): K85.20 - Alcohol induced acute pancreatitis without necrosis or infection (2) Pancreatic pseudocyst Current Visit: No Status: Chronic Assessment and plan: He was noted to have a small pancreatic pseudocyst on MRI dated September 2017 He is improving with current mx and WBC downtrending, less concerning for infected pseudocyst will monitor (3) ETOH abuse Current Visit: No Status: Chronic Assessment and plan: Ongoing counseling No history of withdrawal or seizure (4) Current smoker Current Visit: No Status: Chronic Assessment and plan: Counseling for smoking cessation given NRT (5) DVT prophylaxis Current Visit: No Status: Acute Assessment and plan: SQ heparin - Subjective Interval history: Abdominal pain has gotten better but still lingers on, nausea has improved. Denies fever/chills. - Constitutional Vitals: Temp Pulse Resp BP Pulse Ox 97.9 F 64 15 147/87 96 01/03/18 06:59 01/03/18 06:59 01/03/18 06:59 01/03/18 06:59 01/03/18 06:59 Exam: General: Alert and oriented Cardiovascular:Normal S1 & S2, no murmurs or gallops. No JVD. Pulse regular. Lungs:Normal breath sounds, no wheezes or crackles. Abdomen:Soft, mild epigastric tenderness without rebound or guarding. Extremities:No deformity, no edema or tenderness, no joint swelling. Rest of the physical exam is non-contributory Internal Medicine: Result - Labs CBC & Chem 7: 01/03/18 04:22 01/03/18 04:22 Labs: Short CBC 01/03/18 Range/Units 04:22 WBC 10.7 (4.3-11.1) K/mcL Hgb 15.4 (12.9-16.9) g/dL Hct 44.3 (37.5-50.1) % Plt Count 230 (140-400) K/mcL Neutrophils # 7.1 (1.6-8.9) K/mcL BMP 01/03/18 04:22 Sodium 136 Potassium 3.7 Chloride 102 Carbon Dioxide 25 BUN 5 L Creatinine 0.58 L Glucose 101 Calcium 9.2 - ABG Interpretation ABG results: PT/INR, D-dimer PT 11.6 Seconds (9.4-12.1) 01/02/18 04:42 - Impressions Leukocytosis resolved. Hematocrit and BUN downtrending Consult Discharge Plan - Plan [facility]errals: [facility] [Primary Care Provider[facility] -
--- NOTE | 2018-01-03 17:31 | Electrocardiograph Report ---
[address] [address] Test Date: 2018-01-02 Pat Name: Thony Manley Department: 103 Room: 3B32 Gender: M Packager Hand: JACI : 1965 Requested By: Baldemar Clancy Order Number: [id number] Reading MD: Chely Davis Measurements Intervals [place] Rate: 68 P: 56 NE: 178 QRS: 62 QRSD: 89 T: 52 QT: 387 QTc: 404 Interpretive Statements SINUS RHYTHM Electronically Signed On 01-03-2018 17:30:42 EDT by Chely Davis
[2018-01-03] MEDS: PRAVASTATIN SODIUM 5 MG PO SCH (19:48)
[2018-01-04] MEDS: *HR* Heparin 5,000 UNIT/ML VIAL SQ SCH ×2 (05:56→18:19)
[2018-01-04 06:13] LABS: Basophils # 0.1 K/mcL (0.0-0.2); Basophils % 0.7 %; Eosinophils # 0.3 K/mcL (0.0-0.6); Eosinophils % 3.5 %; Hematocrit 45.6 % (37.5-50.1); Hemoglobin 16.2 g/dL (12.9-16.9); Immature Granulocytes % 0.4 % (0-4); Lymphocytes # 2.1 K/mcL (0.6-4.6); Mean Corpuscular HGB Conc 35.5 g/dL (31.6-35.5); Mean Corpuscular Hemoglobin 33.4 pg (28.0-33.3); Mean Platelet Volume 9.8 fL (9.4-12.4); Monocytes % 10.3 %; Platelet Count 226 K/mcL (140-400); Red Blood Count 4.85 M/mcL (4.19-5.50); Red Cell Distribution Width 14.1 % (11.5-14.5); Segmented Neutrophils % 63.1 %
[2018-01-04 06:34] LABS: BUN/Creatinine Ratio 13 (6-26); Blood Urea Nitrogen 9 mg/dL (6-20); Calcium 9.5 mg/dL (8.6-10.3); Carbon Dioxide 25 mEq/L (23-29); Chloride 101 mEq/L (98-107); Glucose 103 mg/dL (70-105); Osmolality,Calculated 277 (280-300); Sodium 134 mEq/L (136-145); eGFR For Non-African Americans > 60 (> 60)
[2018-01-04] MEDS: Nicotine 21 MG PATCH.TD24 TD SCH (08:12)
[2018-01-04] MEDS: *HR* OxyCODONE Immed Rel 5 MG TABLET PO PRN ×3 (08:16→21:32)
[2018-01-04] MEDS: *HR* HYDROcodone/Acet 5/325 mg TABLET PO PRN ×2 (13:33→18:19)
--- NOTE | 2018-01-04 17:21 | Internal Med Progress Note ---
Hospitalist Progress Note - Encounter Date of Encounter: 01/04/18 Time of Encounter: 11:00 - Subjective Interval History: Patient resting quietly in bed. He was seen and assessed at bedside 11 AM. He reports he is feeling somewhat better but states that he still has some mild low abdominal pain. He reports no bowel movement for 3 days, stool softener will be added. Patient reports that his last drink was 4 days ago, reports 2 beers nightly for years and denies any withdrawal symptoms. - Exam Vitals: Temp Pulse Resp BP Pulse Ox 97.9 F 75 16 117/78 95 01/04/18 15:16 01/04/18 15:16 01/04/18 15:16 01/04/18 15:16 01/04/18 15:16 - Assessment and Plan (1) ETOH abuse Current Visit: Yes Status: Chronic Assessment and Plan: Strict 4 days ago. He reports that he drinks 2 beers every single night for years. Denies any withdrawal symptoms. (2) Current smoker Current Visit: Yes Status: Chronic Assessment and Plan: Continue NicoDerm patch. Patient is tolerating well. (3) DVT prophylaxis Current Visit: Yes Status: Acute Assessment and Plan: SQ heparin twice daily. (4) Pancreatic pseudocyst Current Visit: No Status: Chronic Assessment and Plan: He was noted to have a small pancreatic pseudocyst on MRI dated September 2017. Lipase is within normal limits. (5) Acute pancreatitis Current Visit: Yes Status: Acute Assessment and Plan: Presented with epigastric pain radiating to the back, along the CT finding positive for pancreatitis. Lipase is normal on admission. IV fluid, pain control, patient reports that he is hungry and is tolerating clear liquid diet well. We have advanced to full liquid diet for dinner tonight. Counseling for alcohol cessation provided by previous provider. Reassess labs in the morning. - Time Spent with Patient Total time spent is greater than 50% in coordination of care (as documented) at patient's floor/unit and/or counseling patient: less than 15 minutes Plan of Care Discussed with: patient Internal Medicine: Result - Labs CBC & Chem 7: 01/04/18 05:45 01/04/18 05:45 Labs: Short CBC 01/04/18 Range/Units 05:45 WBC 9.5 (4.3-11.1) K/mcL Hgb 16.2 (12.9-16.9) g/dL Hct 45.6 (37.5-50.1) % Plt Count 226 (140-400) K/mcL Neutrophils # 6.0 (1.6-8.9) K/mcL BMP 01/04/18 05:45 Sodium 134 L Potassium 4.0 Chloride 101 Carbon Dioxide 25 BUN 9 Creatinine 0.68 L Glucose 103 Calcium 9.5 - ABG Interpretation ABG results: PT/INR, D-dimer PT 11.6 Seconds (9.4-12.1) 01/02/18 04:42 Consult Discharge Plan - Plan [facility]errals: [facility] [Primary Care Provider] - (5) Acute pancreatitis Qualifiers: Pancreatitis type: alcohol induced Acute pancreatitis complication: unspecified Qualified Code(s): K85.20 - Alcohol induced acute pancreatitis without necrosis or infection
[2018-01-04] MEDS ORDERED: 0.9 % Sodium Chloride 1,000 ML IVC SCH (17:30)
[2018-01-05] MEDS: *HR* OxyCODONE Immed Rel 5 MG TABLET PO PRN (03:24)
[2018-01-05 05:02] LABS: Basophils # 0.1 K/mcL (0.0-0.2); Eosinophils # 0.3 K/mcL (0.0-0.6); Hematocrit 43.5 % (37.5-50.1); Immature Granulocytes % 0.6 % (0-4); Lymphocytes # 2.3 K/mcL (0.6-4.6); Lymphocytes % 28.2 %; Mean Corpuscular HGB Conc 34.5 g/dL (31.6-35.5); Mean Corpuscular Hemoglobin 32.5 pg (28.0-33.3); Mean Corpuscular Volume 94.2 fL (83.0-100.0); Mean Platelet Volume 10.2 fL (9.4-12.4); Monocytes # 0.9 K/mcL (0.0-1.3); Monocytes % 11.1 %; Neutrophils # 4.4 K/mcL (1.6-8.9); Platelet Count 230 K/mcL (140-400); Red Blood Count 4.62 M/mcL (4.19-5.50); Red Cell Distribution Width 14.2 % (11.5-14.5); Segmented Neutrophils % 55.1 %
[2018-01-05 05:23] LABS: BUN/Creatinine Ratio 13 (6-26); Blood Urea Nitrogen 8 mg/dL (6-20); Calcium 9.4 mg/dL (8.6-10.3); Carbon Dioxide 26 mEq/L (23-29); Chloride 102 mEq/L (98-107); Glucose 100 mg/dL (70-105); Osmolality,Calculated 278 (280-300); Sodium 135 mEq/L (136-145); eGFR For Non-African Americans > 60 (> 60)
[2018-01-05] MEDS: *HR* Heparin 5,000 UNIT/ML VIAL SQ SCH (05:38)
[2018-01-05] MEDS: *HR* HYDROcodone/Acet 5/325 mg TABLET PO PRN (05:44)
[2018-01-05] MEDS: Nicotine 21 MG PATCH.TD24 TD SCH (08:05)
[2018-01-05 11:27] VITALS: BP 113/77
--- NOTE | 2018-01-05 12:06 | Discharge Summary ---
- NOTES TO OUTPATIENT PROVIDER Notes to Outpatient Provider: Pt with mildly prominent retroperitoneal lymph nodes meauring up to 13mm, present on prior CT 04/26/17. Monitor with follow up CT or MRI . Date of Encounter: 01/05/18 Time of Encounter: 11:05 - Discharge Diagnosis (1) ETOH abuse Priority: Primary Status: Chronic Assessment and Plan: Last drink 5 days ago. He reports that he drinks 2 beers every single night for years. Denies any withdrawal symptoms. (2) Current smoker Priority: Secondary Status: Chronic Assessment and Plan: Pt states that he is not ready to stop smoking and denies need for nicotine replacement for discharge. (3) DVT prophylaxis Priority: Secondary Status: Acute Assessment and Plan: Heparin SQ BID (4) Pancreatic pseudocyst Priority: Secondary Status: Chronic Assessment and Plan: He was noted to have a small pancreatic pseudocyst on MRI dated September 2017. Lipase is within normal limits. (5) Acute pancreatitis Priority: Secondary Status: Acute Assessment and Plan: Presented with epigastric pain radiating to the back, along the CT finding positive for pancreatitis. Lipase is normal on admission. Pt improved with IV fluid, pain control. Pt is tolerating regular diet well. Counseling for alcohol cessation provided by previous provider. Labs stable and WNL. Qualifiers: Pancreatitis type: alcohol induced Acute pancreatitis complication: unspecified Qualified Code(s): K85.20 - Alcohol induced acute pancreatitis without necrosis or infection (6) Retroperitoneal lymphadenopathy Priority: Secondary Status: Chronic Assessment and Plan: Noted again to be stable on CT abdomen this visit. Initially noted on MRI . Recommend surveillance and monitoring by PCP. Hospital course: Mr. Manley is a 52 year old male with past medical history of pancreatitis, hypertension, hyperlipidemia, alcohol and tobacco abuse. Patient presented to the emergency department with abdominal pain. Patient found on CT to have pancreatitis, though his lipase was normal. Patient improved with IV hydration and pain management. Patient was also found to have stable, retroperitoneal lymphadenopathy that was originally noted on MRI from 2015, again noted on CT abdomen in April,. Patient reports that his pain has improved, he states he is feeling better, labs and vitals are stable and within normal limits. He is able to tolerate a regular diet. He will be discharged in stable condition. Discharge discussed with: patient - Time Spent with Patient Total time spent providing and/or coordinating discharge services: Less than 30 minutes - Discharge Medications Home Medications: Pravastatin Sodium 5 mg PO HS 01/02/18 [History] Allergies/Adverse Reactions: 3 Allergy/AdvReac Type Severity Reaction Status Date / Time Penicillins [PCN] Allergy Rash Verified 01/02/18 07:28 Date of admission: 01/04/18 17:14 Primary care physician: PCP ETHEL Discharging clinician: Birdie White Anticipated date of discharge: 01/05/18 - Constitutional Vitals: Temp Pulse Resp BP Pulse Ox 98.0 F 83 20 113/77 92 01/05/18 11:26 01/05/18 11:26 01/05/18 11:26 01/05/18 11:26 01/05/18 11:26 General appearance: Present: cooperative, pleasant, no acute distress, answers questions appropriately - Head Head exam: Present: atraumatic, normal inspection, normocephalic - Eye Eye exam: Present: conjuntiva pink, sclera anicteric - Neck Neck exam general surgery: Present: supple, trachea midline. Absent: lymphadenopathy - Respiratory Respiratory exam: Present: CTAB. Absent: accessory muscle use, rales, respiratory distress, rhonchi, wheezes - Cardiovascular Cardiovascular exam: Present: RRR, +S1, +S2. Absent: diastolic murmur, gallop, rubs, systolic murmur - GI/Abdominal GI/Abdominal exam: Present: normal bowel sounds, soft. Absent: distended, hepatomegaly, tenderness - Extremities Exam Extremities exam: Present: normal capillary refill, normal inspection, warm, radial pulses palpable and symmetrical. Absent: calf tenderness, cyanotic, pedal edema, tenderness - Neurological Exam Neurological exam: Present: alert, oriented X3, no focal deficits. Absent: facial droop, speech deficit - Skin Skin exam: Present: dry, intact, normal color, warm. Absent: rash - Patient Status Disposition: Home, Self-Care Condition: Good - Discharge Instructions Follow Up With: ETHELPCP [Primary Care Provider] - 01/10/18 12:15 pm Additional Instructions: Please follow up with your PCP in the next 5-7 days for a recheck. REturn to the ER as needed for any other problems or concerns or if your symptoms return or worsen. Take your medications as directed. Resume your normal diet and activities as tolerated. Stop drinking and smoking. - Diet and Activity Activity: increase activity as tolerated Diet: advance to your usual diet
== END 2018-01-05 14:35 | disposition home or self-care (01) | DRG 439 ==
LOC: 3BNU 04:33 → EMEROO 04:33 → SUATTDRO 06:57 → 3BNU 08:26
PROVIDERS: ADMIT Family Medicine; ATTEND Internal Medicine

== ENCOUNTER 2019-04-09 13:35 | Inpatient (IN) ==
[2019-04-09] MEDS ORDERED: Aspirin 81 MG TAB.CHEW PO ONE (13:55)
[2019-04-09] MEDS ORDERED: Isovue-370 500 ML BOTTLE IVP ONE ×2 (14:08→14:15)
[2019-04-09] MEDS: Nitroglycerin 0.4 MG TAB.SUBL SL SCH ×3 (14:50→15:02)
[2019-04-09 15:00] LABS: Basophils # 0.1 K/mcL (0.0-0.2); Basophils % 0.8 %; Eosinophils # 0.2 K/mcL (0.0-0.6); Eosinophils % 1.4 %; Hemoglobin 16.9 g/dL (12.9-16.9); Immature Granulocytes % 0.7 % (0-4); Lymphocytes # 2.4 K/mcL (0.6-4.6); Lymphocytes % 17.2 %; Mean Corpuscular Hemoglobin 33.3 pg (28.0-33.3); Mean Corpuscular Volume 92.5 fL (83.0-100.0); Mean Platelet Volume 9.1 fL (9.4-12.4); Monocytes # 1.3 K/mcL (0.0-1.3); Monocytes % 9.5 %; Neutrophils # 9.7 K/mcL (1.6-8.9); Platelet Count 235 K/mcL (140-400); Red Blood Count 5.08 M/mcL (4.19-5.50); Red Cell Distribution Width 14.5 % (11.5-14.5); Segmented Neutrophils % 70.4 %; White Blood Count 13.8 K/mcL (4.3-11.1)
[2019-04-09 15:19] LABS: Alanine Aminotransferase 17 Units/L (7-52); Albumin 4.2 g/dL (3.5-5.7); Albumin/Globulin Ratio 1.1 (1.1-2.2); Alkaline Phosphatase 137 Units/L (34-104); Aspartate Amino Transferase 18 Units/L (13-39); BUN/Creatinine Ratio 9 (6-26); Bilirubin,Direct 0.1 mg/dL (0.0-0.2); Bilirubin,Indirect 0.2 mg/dL (0.0-1.0); Bilirubin,Total 0.3 mg/dL (0.3-1.0); Blood Urea Nitrogen 7 mg/dL (6-20); Calcium 9.3 mg/dL (8.6-10.3); Carbon Dioxide 23 mEq/L (23-29); Chloride 97 mEq/L (98-107); Globulin 3.8 g/dL (2.4-3.5); Glucose 102 mg/dL (70-105); Lipase 40 Units/L (11-82); Osmolality,Calculated 272 (280-300); Potassium 3.7 mEq/L (3.5-5.1); Sodium 132 mEq/L (136-145); eGFR For African Americans > 60 (> 60); eGFR For Non-African Americans > 60 (> 60)
[2019-04-09] MEDS ORDERED: 0.9 % Sodium Chloride 1,000 ML IVC ONE ×2 (15:59→16:06)
[2019-04-09] MEDS ORDERED: MetroNIDAZOLE 500 MG/100 ML 500 MG/100 ML BAG IVPB ONE (16:06)
[2019-04-09] MEDS ORDERED: Morphine Sulfate 2 MG/ML SYRINGE IVP ONE ×2 (16:31→17:49)
[2019-04-09] MEDS ORDERED: Naloxone 0.4 MG/ML INJ IVP PRN (17:40)
[2019-04-09] MEDS ORDERED: *HR* LORazepam 2 MG/ML VIAL IVP ONE ×2 (19:25)
[2019-04-09] MEDS: Morphine Sulfate 2 MG/ML SYRINGE IVP PRN (19:55)
[2019-04-09] MEDS: Pantoprazole 40 MG VIAL IVP SCH (19:55)
[2019-04-09] MEDS: 0.9 % Sodium Chloride 1,000 ML IVC SCH (22:13)
[2019-04-09] MEDS: *HR* LORazepam 1 MG TABLET PO SCH (22:49)
[2019-04-10] MEDS: Morphine Sulfate 2 MG/ML SYRINGE IVP PRN ×6 (00:04→20:34)
[2019-04-10 05:43] LABS: Basophils # 0.1 K/mcL (0.0-0.2); Basophils % 0.6 %; Eosinophils # 0.2 K/mcL (0.0-0.6); Eosinophils % 2.3 %; Hematocrit 40.7 % (37.5-50.1); Immature Granulocytes % 0.5 % (0-4); Lymphocytes # 1.4 K/mcL (0.6-4.6); Mean Corpuscular HGB Conc 36.1 g/dL (31.6-35.5); Mean Corpuscular Hemoglobin 34.2 pg (28.0-33.3); Mean Corpuscular Volume 94.7 fL (83.0-100.0); Mean Platelet Volume 9.5 fL (9.4-12.4); Neutrophils # 5.4 K/mcL (1.6-8.9); Platelet Count 163 K/mcL (140-400); Red Cell Distribution Width 14.6 % (11.5-14.5); Segmented Neutrophils % 67.6 %
[2019-04-10 06:01] LABS: Hemoglobin 14.7 g/dL (12.9-16.9)
[2019-04-10 06:04] LABS: BUN/Creatinine Ratio 7 (6-26); Blood Urea Nitrogen 5 mg/dL (6-20); Calcium 8.6 mg/dL (8.6-10.3); Carbon Dioxide 24 mEq/L (23-29); Chloride 104 mEq/L (98-107); Glucose 101 mg/dL (70-105); Osmolality,Calculated 277 (280-300); Potassium 4.1 mEq/L (3.5-5.1); Sodium 135 mEq/L (136-145); eGFR For African Americans > 60 (> 60); eGFR For Non-African Americans > 60 (> 60)
[2019-04-10] MEDS: Pantoprazole 40 MG VIAL IVP SCH ×2 (06:26→18:15)
[2019-04-10] MEDS: Thiamine (B-1) 100 MG TABLET PO SCH (08:28)
[2019-04-10] MEDS: Vitamin B Complex/Vit C/Vit E 1 EACH TABLET PO SCH (08:28)
[2019-04-10] MEDS: *HR* LORazepam 1 MG TABLET PO SCH ×4 (08:29→20:43)
[2019-04-10] MEDS: 0.9 % Sodium Chloride 1,000 ML IVC SCH (08:44)
[2019-04-10] MEDS ORDERED: Lidocaine -MPF 1% 5 ML AMPUL INFILT ONE (14:16)
[2019-04-10] MEDS ORDERED: D10% in Water 500 ML IVC PRN (14:30)
[2019-04-10] MEDS ORDERED: Perflutren Lipid Microsphere 1.3 ML in 0.9 % Sodium Chloride 8.7 ML IVP ONE (15:17)
[2019-04-10] MEDS ORDERED: Clinimix E 5%-15% SOLUTION 2,000 ML with MVI, adult with vitamin K 10 ML IVC SCH (17:00)
[2019-04-11] MEDS: Morphine Sulfate 2 MG/ML SYRINGE IVP PRN ×6 (00:58→21:49)
[2019-04-11] MEDS: Pantoprazole 40 MG VIAL IVP SCH ×2 (05:13→18:38)
[2019-04-11] MEDS: *HR* Heparin 5,000 UNIT/ML VIAL SQ SCH ×2 (05:14→17:14)
[2019-04-11 05:32] LABS: Basophils # 0.1 K/mcL (0.0-0.2); Basophils % 0.7 %; Eosinophils # 0.2 K/mcL (0.0-0.6); Eosinophils % 2.2 %; Hematocrit 40.5 % (37.5-50.1); Hemoglobin 14.4 g/dL (12.9-16.9); Immature Granulocytes % 0.5 % (0-4); Lymphocytes # 1.5 K/mcL (0.6-4.6); Lymphocytes % 19.6 %; Mean Corpuscular HGB Conc 35.6 g/dL (31.6-35.5); Mean Corpuscular Hemoglobin 33.1 pg (28.0-33.3); Mean Corpuscular Volume 93.1 fL (83.0-100.0); Mean Platelet Volume 9.4 fL (9.4-12.4); Monocytes # 0.8 K/mcL (0.0-1.3); Neutrophils # 5.1 K/mcL (1.6-8.9); Platelet Count 151 K/mcL (140-400); Red Blood Count 4.35 M/mcL (4.19-5.50); Red Cell Distribution Width 14.3 % (11.5-14.5); White Blood Count 7.6 K/mcL (4.3-11.1)
[2019-04-11 05:54] LABS: BUN/Creatinine Ratio 11 (6-26); Blood Urea Nitrogen 7 mg/dL (6-20); Calcium 8.8 mg/dL (8.6-10.3); Carbon Dioxide 26 mEq/L (23-29); Chloride 102 mEq/L (98-107); Glucose 104 mg/dL (70-105); Magnesium 1.9 mg/dL (1.6-2.6); Osmolality,Calculated 282 (280-300); Phosphorous 3.7 mg/dL (2.7-4.5); Potassium 4.1 mEq/L (3.5-5.1); Sodium 137 mEq/L (136-145); eGFR For African Americans > 60 (> 60); eGFR For Non-African Americans > 60 (> 60)
[2019-04-11] MEDS: Vitamin B Complex/Vit C/Vit E 1 EACH TABLET PO SCH (09:29)
[2019-04-11] MEDS: Thiamine (B-1) 100 MG TABLET PO SCH (09:29)
[2019-04-11] MEDS: *HR* LORazepam 1 MG TABLET PO SCH ×3 (09:38→20:35)
[2019-04-11] MEDS ORDERED: Clinimix E 5%-15% SOLUTION 2,000 ML with MVI, adult with vitamin K 10 ML IVC SCH (17:00)
[2019-04-12] MEDS: Morphine Sulfate 2 MG/ML SYRINGE IVP PRN ×4 (02:20→14:48)
[2019-04-12 03:41] LABS: Basophils % 0.4 %; Eosinophils # 0.2 K/mcL (0.0-0.6); Eosinophils % 2.2 %; Hematocrit 40.7 % (37.5-50.1); Hemoglobin 13.9 g/dL (12.9-16.9); Immature Granulocytes % 0.6 % (0-4); Lymphocytes # 1.8 K/mcL (0.6-4.6); Lymphocytes % 18.6 %; Mean Corpuscular HGB Conc 34.2 g/dL (31.6-35.5); Mean Corpuscular Hemoglobin 33.2 pg (28.0-33.3); Mean Corpuscular Volume 97.1 fL (83.0-100.0); Mean Platelet Volume 9.6 fL (9.4-12.4); Monocytes # 0.9 K/mcL (0.0-1.3); Monocytes % 9.3 %; Neutrophils # 6.7 K/mcL (1.6-8.9); Platelet Count 149 K/mcL (140-400); Red Blood Count 4.19 M/mcL (4.19-5.50); Red Cell Distribution Width 14.1 % (11.5-14.5); Segmented Neutrophils % 68.9 %; White Blood Count 9.7 K/mcL (4.3-11.1)
[2019-04-12 04:00] LABS: BUN/Creatinine Ratio 14 (6-26); Blood Urea Nitrogen 9 mg/dL (6-20); Calcium 8.7 mg/dL (8.6-10.3); Carbon Dioxide 26 mEq/L (23-29); Chloride 102 mEq/L (98-107); Glucose 98 mg/dL (70-105); Magnesium 1.9 mg/dL (1.6-2.6); Osmolality,Calculated 277 (280-300); Phosphorous 5.1 mg/dL (2.7-4.5); Potassium 4.3 mEq/L (3.5-5.1); Sodium 134 mEq/L (136-145); eGFR For African Americans > 60 (> 60); eGFR For Non-African Americans > 60 (> 60)
[2019-04-12] MEDS: *HR* Heparin 5,000 UNIT/ML VIAL SQ SCH ×2 (05:38→18:03)
[2019-04-12] MEDS: Pantoprazole 40 MG VIAL IVP SCH ×2 (05:39→18:03)
[2019-04-12] MEDS: Thiamine (B-1) 100 MG TABLET PO SCH (10:10)
[2019-04-12] MEDS: Vitamin B Complex/Vit C/Vit E 1 EACH TABLET PO SCH (10:10)
[2019-04-12] MEDS: *HR* LORazepam 1 MG TABLET PO SCH ×4 (10:35→20:22)
[2019-04-12] MEDS ORDERED: Clinimix E 5%-15% SOLUTION 2,000 ML with MVI, adult with vitamin K 10 ML IVC SCH (17:00)
[2019-04-13 05:04] LABS: BUN/Creatinine Ratio 17 (6-26); Blood Urea Nitrogen 11 mg/dL (6-20); Calcium 8.8 mg/dL (8.6-10.3); Carbon Dioxide 27 mEq/L (23-29); Chloride 100 mEq/L (98-107); Glucose 114 mg/dL (70-105); Osmolality,Calculated 278 (280-300); Phosphorous 4.7 mg/dL (2.7-4.5); Sodium 134 mEq/L (136-145); eGFR For African Americans > 60 (> 60); eGFR For Non-African Americans > 60 (> 60)
[2019-04-13] MEDS: Pantoprazole 40 MG VIAL IVP SCH ×2 (05:29→17:42)
[2019-04-13] MEDS: *HR* Heparin 5,000 UNIT/ML VIAL SQ SCH ×2 (05:29→17:42)
[2019-04-13] MEDS: Thiamine (B-1) 100 MG TABLET PO SCH (08:30)
[2019-04-13] MEDS: *HR* LORazepam 1 MG TABLET PO SCH ×2 (08:30→17:43)
[2019-04-13] MEDS: Vitamin B Complex/Vit C/Vit E 1 EACH TABLET PO SCH (08:30)
[2019-04-13] MEDS ORDERED: Clinimix E 5%-15% SOLUTION 2,000 ML with MVI, adult with vitamin K 10 ML IVC SCH (17:00)
[2019-04-14 05:39] LABS: BUN/Creatinine Ratio 20 (6-26); Blood Urea Nitrogen 13 mg/dL (6-20); Calcium 8.9 mg/dL (8.6-10.3); Carbon Dioxide 27 mEq/L (23-29); Chloride 101 mEq/L (98-107); Glucose 112 mg/dL (70-105); Magnesium 2.2 mg/dL (1.6-2.6); Osmolality,Calculated 283 (280-300); Phosphorous 4.7 mg/dL (2.7-4.5); Potassium 5.1 mEq/L (3.5-5.1); Sodium 136 mEq/L (136-145); eGFR For African Americans > 60 (> 60); eGFR For Non-African Americans > 60 (> 60)
[2019-04-14] MEDS: *HR* Heparin 5,000 UNIT/ML VIAL SQ SCH (06:01)
[2019-04-14] MEDS: Pantoprazole 40 MG VIAL IVP SCH (06:01)
[2019-04-14] MEDS: Vitamin B Complex/Vit C/Vit E 1 EACH TABLET PO SCH (08:45)
[2019-04-14] MEDS: Thiamine (B-1) 100 MG TABLET PO SCH (08:45)
[2019-04-14] MEDS ORDERED: Doxycycline 100 MG CAPSULE PO SCH (09:00)
[2019-04-14] MEDS ORDERED: *HR* OxyCODONE/APAP 5/325 TABLET PO PRN (12:53)
[2019-04-14 15:43] VITALS: BP 122/79
== END 2019-04-14 16:29 | disposition home or self-care (01) | DRG 438 ==
LOC: EMEROOARM 13:35 → 3BNU 13:35
PROVIDERS: ADMIT Internal Medicine; ATTEND Internal Medicine

== ENCOUNTER 2019-09-28 09:18 | Observation (INO) ==
[2019-09-28 09:50] LABS: Basophils # 0.1 K/mcL (0.0-0.2); Basophils % 0.9 %; Eosinophils # 0.2 K/mcL (0.0-0.6); Eosinophils % 2.2 %; Hematocrit 43.3 % (37.5-50.1); Hemoglobin 14.6 g/dL (12.9-16.9); Immature Granulocytes % 0.5 % (0-4); Lymphocytes # 3.6 K/mcL (0.6-4.6); Lymphocytes % 32.8 %; Mean Corpuscular HGB Conc 33.7 g/dL (31.6-35.5); Mean Corpuscular Hemoglobin 32.7 pg (28.0-33.3); Mean Corpuscular Volume 97.1 fL (83.0-100.0); Monocytes # 1.1 K/mcL (0.0-1.3); Monocytes % 9.6 %; Neutrophils # 5.9 K/mcL (1.6-8.9); Platelet Count 168 K/mcL (140-400); Red Blood Count 4.46 M/mcL (4.19-5.50); Red Cell Distribution Width 14.1 % (11.5-14.5)
[2019-09-28 09:59] LABS: Prothrombin Time 11.8 Seconds (9.4-12.1)
[2019-09-28 10:02] LABS: Activated Partial Thrombo Time 29.4 Seconds (26.0-36.0)
[2019-09-28 10:12] LABS: BUN/Creatinine Ratio 9 (6-26); Blood Urea Nitrogen 7 mg/dL (6-20); Calcium 9.5 mg/dL (8.6-10.3); Carbon Dioxide 26 mEq/L (23-29); Chloride 102 mEq/L (98-107); Glucose 114 mg/dL (70-105); Osmolality,Calculated 273 (280-300); Potassium 2.4 mEq/L (3.5-5.1); Sodium 132 mEq/L (136-145); eGFR For African Americans > 60 (> 60); eGFR For Non-African Americans > 60 (> 60)
[2019-09-28] MEDS ORDERED: Potassium Effervescent 25 MEQ TABLET.EFF PO ONE (10:12)
[2019-09-28] MEDS ORDERED: *HR* Heparin 5,000 UNIT/ML VIAL IVP ONE (10:19)
[2019-09-28] MEDS ORDERED: *HR* Heparin 5,000 UNIT/ML VIAL IVP PRN ×2 (10:19)
[2019-09-28 10:29] LABS: Heparin anti-factor XA UFH < 0.04 IU/mL (0.30-0.70)
[2019-09-28] MEDS ORDERED: Heparin 25,000 UNIT/250 ML D5W 25,000 UNIT/250 ML IV.SOLN IVC SCH (10:30)
[2019-09-28 10:43] LABS: Magnesium 1.8 mg/dL (1.6-2.6)
[2019-09-28] MEDS ORDERED: *HR* FentaNYL (PF) 100 MCG/2 ML VIAL IVP ONE (10:46)
[2019-09-28] MEDS ORDERED: 0.9 % Sodium Chloride 1,000 ML ONE ×2 (11:30→15:00)
[2019-09-28] MEDS ORDERED: Naloxone 0.4 MG/ML INJ IVP PRN (11:43)
[2019-09-28] MEDS ORDERED: Ondansetron 4 MG/2 ML VIAL IVP PRN (11:43)
[2019-09-28] MEDS: Ringers Solution, Lactated 1,000 ML IVC SCH ×2 (11:59→21:53)
[2019-09-28 14:00] LABS: Bilirubin,Urine Small (Negative); Blood,Urine Negative (Negative); Clarity,Urine Clear (Clear); Color,Urine Dark Yellow (Yellow); Glucose,Urine (UA) Normal (Normal); Ketones,Urine Trace mg/dL (Negative); Leukocyte Esterase,Urine Trace (Negative); Nitrite,Urine Negative (Negative); Protein,Urine 30 mg/dL (Neg-Trace); Specific Gravity,Urine 1.029 (1.010-1.025); Urobilinogen,Urine Normal (Normal)
[2019-09-28 14:04] LABS: Bacteria,Urine None Seen per hpf (None-Few); Hyaline Casts,Urine None Seen per lpf (None-Few); RBC,Urine 0-3 per hpf (0-3); Squamous Epithelial Cell,Urine Many per lpf (None-Few)
[2019-09-28 14:30] LABS: Potassium,Urine 107.4 mEq/L; Sodium, Urine 83.6 mEq/L
[2019-09-28] MEDS ORDERED: *HR* Heparin 10,000 UNIT/10 ML VIAL ONE (14:59)
[2019-09-28] MEDS ORDERED: Heparin 1,000 UNITS/500 mL 0 ML ONE (14:59)
[2019-09-28] MEDS ORDERED: Isovue-300 200 mL Infus..BTL ONE (15:00)
[2019-09-28] MEDS ORDERED: *HR* FentaNYL (PF) 100 MCG/2 ML VIAL ONE ×2 (15:33→16:22)
[2019-09-28] MEDS ORDERED: *HR* Midazolam HCl 2 MG/2 ML VIAL ONE ×2 (15:33→16:31)
[2019-09-28] MEDS ORDERED: *HR* LORazepam 2 MG/ML VIAL IVP PRN ×3 (16:03)
[2019-09-28] MEDS ORDERED: Nitroglycerin 1,000 MCG/10 ML VIAL IV ONE (16:16)
[2019-09-28] MEDS ORDERED: *HR* Metoprolol 5 MG/5 ML VIAL IVP ONE (16:42)
[2019-09-28] MEDS ORDERED: Nicotine 14 MG PATCH.TD24 TD SCH (17:15)
[2019-09-28] MEDS ORDERED: Acetaminophen 325 MG TABLET PO PRN (17:17)
[2019-09-29 01:37] LABS: Prothrombin Time 11.7 Seconds (9.4-12.1)
[2019-09-29 01:49] LABS: BUN/Creatinine Ratio 10 (6-26); Blood Urea Nitrogen 6 mg/dL (6-20); Calcium 8.7 mg/dL (8.6-10.3); Carbon Dioxide 23 mEq/L (23-29); Chloride 103 mEq/L (98-107); Glucose 118 mg/dL (70-105); Magnesium 1.6 mg/dL (1.6-2.6); Osmolality,Calculated 275 (280-300); Potassium 4.1 mEq/L (3.5-5.1); Sodium 133 mEq/L (136-145); eGFR For African Americans > 60 (> 60); eGFR For Non-African Americans > 60 (> 60)
[2019-09-29 01:50] LABS: Mean Corpuscular Volume 95.7 fL (83.0-100.0)
[2019-09-29 01:52] LABS: Basophils # 0.1 K/mcL (0.0-0.2); Basophils % 0.5 %; Eosinophils # 0.1 K/mcL (0.0-0.6); Eosinophils % 0.9 %; Hematocrit 38.2 % (37.5-50.1); Immature Granulocytes % 0.5 % (0-4); Immature Platelets 5.5 % (1.1-6.1); Lymphocytes # 1.8 K/mcL (0.6-4.6); Lymphocytes % 19.1 %; Mean Corpuscular Hemoglobin 32.6 pg (28.0-33.3); Mean Platelet Volume 10.3 fL (9.4-12.4); Monocytes % 10.4 %; Neutrophils # 6.5 K/mcL (1.6-8.9); Platelet Count 133 K/mcL (140-400); Red Blood Count 3.99 M/mcL (4.19-5.50); Red Cell Distribution Width 13.8 % (11.5-14.5); Segmented Neutrophils % 68.6 %; White Blood Count 9.5 K/mcL (4.3-11.1)
[2019-09-29 02:18] LABS: Platelet Estimate Slight Decrease (Normal)
[2019-09-29] MEDS ORDERED: Vitamin B Complex/Vit C/Vit E 1 EACH TABLET PO SCH (09:00)
[2019-09-29] MEDS ORDERED: Thiamine (B-1) 100 MG TABLET PO SCH (09:00)
[2019-09-29] MEDS ORDERED: Folic Acid 1 MG TABLET PO SCH (09:00)
[2019-09-29] MEDS ORDERED: Tiotropium 18 MCG inhalation IH SCH (10:00)
[2019-09-29 10:54] VITALS: BP 109/71
== END 2019-09-29 13:12 | disposition home or self-care (01) ==
LOC: EMEROOARM 09:18 → 3NENU 09:18
PROVIDERS: ADMIT Internal Medicine; ATTEND Internal Medicine

== ENCOUNTER 2019-12-02 13:33 | Inpatient (IN) ==
[2019-12-02] MEDS ORDERED: Morphine Sulfate 2 MG/ML SYRINGE IVP ONE (13:39)
[2019-12-02] MEDS ORDERED: 0.9 % Sodium Chloride 1,000 ML IVC ONE (13:39)
[2019-12-02 14:13] LABS: Basophils # 0.1 K/mcL (0.0-0.2); Basophils % 0.6 %; Eosinophils # 0.1 K/mcL (0.0-0.6); Hematocrit 45.6 % (37.5-50.1); Hemoglobin 15.3 g/dL (12.9-16.9); Immature Granulocytes % 0.8 % (0-4); Lymphocytes # 2.3 K/mcL (0.6-4.6); Lymphocytes % 18.7 %; Mean Corpuscular HGB Conc 33.6 g/dL (31.6-35.5); Mean Corpuscular Hemoglobin 33.9 pg (28.0-33.3); Mean Corpuscular Volume 101.1 fL (83.0-100.0); Monocytes # 0.8 K/mcL (0.0-1.3); Monocytes % 6.4 %; Platelet Count 185 K/mcL (140-400); Red Blood Count 4.51 M/mcL (4.19-5.50); Red Cell Distribution Width 13.9 % (11.5-14.5); Segmented Neutrophils % 72.5 %; White Blood Count 12.4 K/mcL (4.3-11.1)
[2019-12-02 14:17] LABS: Prothrombin Time 10.9 Seconds (9.4-12.1)
[2019-12-02 14:19] LABS: Activated Partial Thrombo Time 31.8 Seconds (26.0-36.0)
[2019-12-02 14:29] LABS: Alanine Aminotransferase 13 Units/L (7-52); Albumin/Globulin Ratio 1.1 (1.1-2.2); Alkaline Phosphatase 106 Units/L (34-104); Aspartate Amino Transferase 20 Units/L (13-39); BUN/Creatinine Ratio 9 (6-26); Bilirubin,Direct 0.1 mg/dL (0.0-0.2); Bilirubin,Indirect 0.4 mg/dL (0.0-1.0); Bilirubin,Total 0.5 mg/dL (0.3-1.0); Blood Urea Nitrogen 7 mg/dL (6-20); Calcium 9.3 mg/dL (8.6-10.3); Carbon Dioxide 23 mEq/L (23-29); Chloride 101 mEq/L (98-107); Globulin 3.6 g/dL (2.4-3.5); Glucose 126 mg/dL (70-105); Lipase 40 Units/L (11-82); Osmolality,Calculated 272 (280-300); Potassium 4.3 mEq/L (3.5-5.1); Sodium 131 mEq/L (136-145); Total Protein 7.6 g/dL (6.4-8.9); Troponin I < 0.03 ng/mL (< 0.04); eGFR For African Americans > 60 (> 60); eGFR For Non-African Americans > 60 (> 60)
[2019-12-02] MEDS ORDERED: *HR* HYDROmorphone (PF) 1 MG/ML SYRINGE IVP ONE ×2 (14:53→16:09)
[2019-12-02 15:00] LABS: Bilirubin,Urine Negative (Negative); Blood,Urine Negative (Negative); Clarity,Urine Clear (Clear); Color,Urine Dark-Yellow (Yellow); Glucose,Urine (UA) Normal (Normal); Hyaline Casts,Urine Few per lpf (None Seen); Ketones,Urine Trace mg/dL (Negative); Leukocyte Esterase,Urine Negative (Negative); Mucus,Urine Many per lpf (None-Few); Nitrite,Urine Negative (Negative); Protein,Urine 30 mg/dL (Neg-Trace); RBC,Urine 0-3 per hpf (0-3); Specific Gravity,Urine 1.029 (1.010-1.025); Squamous Epithelial Cell,Urine Few per hpf (None-Few); WBC,Urine 0-3 per hpf (0-3)
[2019-12-02 15:23] LABS: Amphetamine Screen,Urine Negative ng/mL (Cutoff=1000); Barbiturate Screen,Urine Negative ng/mL (Cutoff=200); Benzodiazepines Screen,Urine Negative ng/mL (Cutoff=200); Cannabinoid Screen,Urine Negative ng/mL (Cutoff = 50); Cocaine Screen,Urine Negative ng/mL (Cutoff= 300); Opiate Screen,Urine Positive ng/mL (Cutoff=300); Phencyclidine Screen,Urine Negative ng/mL (Cutoff=25)
[2019-12-02] MEDS ORDERED: Naloxone 0.4 MG/ML INJ IVP PRN (16:24)
[2019-12-02] MEDS ORDERED: Ketorolac 15 MG/ML VIAL IVP PRN (16:24)
[2019-12-02] MEDS ORDERED: Ondansetron 4 MG/2 ML VIAL IVP PRN (16:24)
[2019-12-02] MEDS ORDERED: *HR* LORazepam 2 MG/ML VIAL IVP PRN ×3 (16:25)
[2019-12-02] MEDS: Ketorolac 30 MG/ML VIAL IVP PRN (17:44)
[2019-12-02] MEDS: Ringers Solution, Lactated 1,000 ML IVC SCH (17:45)
[2019-12-02] MEDS: *HR* Heparin 5,000 UNIT/ML VIAL SQ SCH (17:45)
[2019-12-03] MEDS: Ringers Solution, Lactated 1,000 ML IVC SCH ×5 (00:28→20:41)
[2019-12-03 04:21] LABS: Basophils # 0.1 K/mcL (0.0-0.2); Basophils % 0.6 %; Eosinophils # 0.1 K/mcL (0.0-0.6); Eosinophils % 1.3 %; Hematocrit 39.8 % (37.5-50.1); Immature Granulocytes % 0.8 % (0-4); Lymphocytes # 1.8 K/mcL (0.6-4.6); Lymphocytes % 20.8 %; Mean Corpuscular HGB Conc 33.2 g/dL (31.6-35.5); Mean Corpuscular Hemoglobin 33.5 pg (28.0-33.3); Mean Platelet Volume 9.9 fL (9.4-12.4); Monocytes # 0.8 K/mcL (0.0-1.3); Monocytes % 9.5 %; Neutrophils # 5.8 K/mcL (1.6-8.9); Platelet Count 148 K/mcL (140-400); Red Blood Count 3.94 M/mcL (4.19-5.50); Red Cell Distribution Width 13.7 % (11.5-14.5); White Blood Count 8.6 K/mcL (4.3-11.1)
[2019-12-03 04:24] LABS: Hemoglobin 13.2 g/dL (12.9-16.9)
[2019-12-03 04:43] LABS: Alanine Aminotransferase 10 Units/L (7-52); Albumin 2.9 g/dL (3.5-5.7); Alkaline Phosphatase 88 Units/L (34-104); Aspartate Amino Transferase 23 Units/L (13-39); BUN/Creatinine Ratio 14 (6-26); Bilirubin,Total 0.6 mg/dL (0.3-1.0); Blood Urea Nitrogen 10 mg/dL (6-20); Calcium 8.4 mg/dL (8.6-10.3); Carbon Dioxide 25 mEq/L (23-29); Chloride 103 mEq/L (98-107); Globulin 2.8 g/dL (2.4-3.5); Glucose 92 mg/dL (70-105); Magnesium 1.8 mg/dL (1.6-2.6); Osmolality,Calculated 275 (280-300); Potassium 4.1 mEq/L (3.5-5.1); Sodium 133 mEq/L (136-145); Total Protein 5.7 g/dL (6.4-8.9); eGFR For African Americans > 60 (> 60); eGFR For Non-African Americans > 60 (> 60)
[2019-12-03] MEDS: Ketorolac 30 MG/ML VIAL IVP PRN (05:01)
[2019-12-03] MEDS: *HR* Heparin 5,000 UNIT/ML VIAL SQ SCH ×2 (05:01→17:11)
[2019-12-03] MEDS: Thiamine (B-1) 100 MG TABLET PO SCH (09:17)
[2019-12-03] MEDS: Aspirin Enteric Coated 81 MG Tablet PO SCH (09:17)
[2019-12-03] MEDS: Folic Acid 1 MG TABLET PO SCH (09:17)
[2019-12-03] MEDS: Nicotine 14 MG PATCH.TD24 TD SCH (09:17)
[2019-12-03] MEDS: Tiotropium 18 MCG inhalation IH SCH (10:46)
[2019-12-04] MEDS: Ringers Solution, Lactated 1,000 ML IVC SCH ×3 (03:25→20:59)
[2019-12-04] MEDS: *HR* Heparin 5,000 UNIT/ML VIAL SQ SCH ×2 (03:25→16:52)
[2019-12-04 03:34] LABS: Basophils % 0.4 %; Eosinophils # 0.1 K/mcL (0.0-0.6); Eosinophils % 1.2 %; Hematocrit 37.7 % (37.5-50.1); Hemoglobin 12.7 g/dL (12.9-16.9); Immature Granulocytes % 0.5 % (0-4); Lymphocytes # 1.8 K/mcL (0.6-4.6); Lymphocytes % 22.4 %; Mean Corpuscular HGB Conc 33.7 g/dL (31.6-35.5); Mean Corpuscular Hemoglobin 33.6 pg (28.0-33.3); Mean Corpuscular Volume 99.7 fL (83.0-100.0); Monocytes # 0.8 K/mcL (0.0-1.3); Monocytes % 9.5 %; Neutrophils # 5.3 K/mcL (1.6-8.9); Platelet Count 125 K/mcL (140-400); Red Blood Count 3.78 M/mcL (4.19-5.50); Red Cell Distribution Width 13.2 % (11.5-14.5); White Blood Count 8.1 K/mcL (4.3-11.1)
[2019-12-04 03:52] LABS: BUN/Creatinine Ratio 10 (6-26); Blood Urea Nitrogen 7 mg/dL (6-20); Calcium 8.4 mg/dL (8.6-10.3); Carbon Dioxide 25 mEq/L (23-29); Chloride 104 mEq/L (98-107); Glucose 74 mg/dL (70-105); Magnesium 1.6 mg/dL (1.6-2.6); Osmolality,Calculated 277 (280-300); Potassium 3.8 mEq/L (3.5-5.1); Sodium 135 mEq/L (136-145); eGFR For African Americans > 60 (> 60); eGFR For Non-African Americans > 60 (> 60)
[2019-12-04] MEDS: Tiotropium 18 MCG inhalation IH SCH (08:05)
[2019-12-04] MEDS: Thiamine (B-1) 100 MG TABLET PO SCH (08:05)
[2019-12-04] MEDS: Aspirin Enteric Coated 81 MG Tablet PO SCH (08:05)
[2019-12-04] MEDS: Folic Acid 1 MG TABLET PO SCH (08:05)
[2019-12-04] MEDS: Nicotine 14 MG PATCH.TD24 TD SCH (08:05)
[2019-12-05] MEDS: Ringers Solution, Lactated 1,000 ML IVC SCH (01:55)
[2019-12-05 02:38] LABS: Hematocrit 39.1 % (37.5-50.1); Hemoglobin 13.4 g/dL (12.9-16.9); Mean Corpuscular HGB Conc 34.3 g/dL (31.6-35.5); Mean Corpuscular Hemoglobin 34.4 pg (28.0-33.3); Mean Corpuscular Volume 100.3 fL (83.0-100.0); Platelet Count 147 K/mcL (140-400); Red Cell Distribution Width 13.3 % (11.5-14.5); White Blood Count 7.7 K/mcL (4.3-11.1)
[2019-12-05 02:45] LABS: Alanine Aminotransferase 7 Units/L (7-52); Alkaline Phosphatase 76 Units/L (34-104); Aspartate Amino Transferase 15 Units/L (13-39); BUN/Creatinine Ratio 5 (6-26); Bilirubin,Total 0.4 mg/dL (0.3-1.0); Blood Urea Nitrogen 4 mg/dL (6-20); Calcium 8.7 mg/dL (8.6-10.3); Carbon Dioxide 28 mEq/L (23-29); Chloride 102 mEq/L (98-107); Glucose 101 mg/dL (70-105); Osmolality,Calculated 279 (280-300); Potassium 3.8 mEq/L (3.5-5.1); Sodium 136 mEq/L (136-145); eGFR For African Americans > 60 (> 60); eGFR For Non-African Americans > 60 (> 60)
[2019-12-05] MEDS: *HR* Heparin 5,000 UNIT/ML VIAL SQ SCH (05:14)
[2019-12-05 07:03] VITALS: BP 163/91
[2019-12-05] MEDS ORDERED: *HR* OxyCODONE Immed Rel 5 MG TABLET PO PRN (08:04)
[2019-12-05] MEDS: Thiamine (B-1) 100 MG TABLET PO SCH (09:20)
[2019-12-05] MEDS: Nicotine 14 MG PATCH.TD24 TD SCH (09:20)
[2019-12-05] MEDS: Aspirin Enteric Coated 81 MG Tablet PO SCH (09:20)
[2019-12-05] MEDS: Folic Acid 1 MG TABLET PO SCH (09:20)
== END 2019-12-05 10:32 | disposition home or self-care (01) | DRG 438 ==
LOC: 3BNU 13:33 → EMEROOARM 13:33 → SUATTDRO 16:35 → 3BNU 17:31 → SUATTDRO 12-03 13:33
PROVIDERS: ADMIT Internal Medicine; ATTEND Family Medicine

== ENCOUNTER 2020-03-07 02:41 | Observation (INO) ==
[2020-03-07] MEDS ORDERED: Ondansetron 4 MG/2 ML VIAL IVP ONE (02:46)
[2020-03-07] MEDS ORDERED: 0.9 % Sodium Chloride 1,000 ML IVC ONE (02:46)
[2020-03-07] MEDS ORDERED: *HR* HYDROmorphone (PF) 1 MG/ML SYRINGE IVP ONE ×2 (02:46→05:37)
[2020-03-07 04:53] LABS: Basophils # 0.1 K/mcL (0.0-0.2); Basophils % 0.8 %; Eosinophils # 0.1 K/mcL (0.0-0.6); Eosinophils % 1.1 %; Hematocrit 41.1 % (37.5-50.1); Immature Granulocytes % 1.2 % (0-4); Lymphocytes # 1.9 K/mcL (0.6-4.6); Lymphocytes % 17.1 %; Mean Corpuscular HGB Conc 33.3 g/dL (31.6-35.5); Mean Corpuscular Hemoglobin 33.3 pg (28.0-33.3); Mean Platelet Volume 9.8 fL (9.4-12.4); Monocytes # 0.7 K/mcL (0.0-1.3); Monocytes % 6.6 %; Neutrophils # 8.1 K/mcL (1.6-8.9); Platelet Count 129 K/mcL (140-400); Red Blood Count 4.11 M/mcL (4.19-5.50); Red Cell Distribution Width 14.2 % (11.5-14.5); Segmented Neutrophils % 73.2 %
[2020-03-07 04:59] LABS: Hemoglobin 13.7 g/dL (12.9-16.9)
[2020-03-07 05:06] LABS: Alanine Aminotransferase 13 Units/L (7-52); Albumin 3.4 g/dL (3.5-5.7); Albumin/Globulin Ratio 1.1 (1.1-2.2); Alkaline Phosphatase 83 Units/L (34-104); Aspartate Amino Transferase 18 Units/L (13-39); BUN/Creatinine Ratio 14 (6-26); Bilirubin,Direct 0.1 mg/dL (0.0-0.2); Bilirubin,Indirect 0.2 mg/dL (0.0-1.0); Bilirubin,Total 0.3 mg/dL (0.3-1.0); Blood Urea Nitrogen 9 mg/dL (6-20); Calcium 8.3 mg/dL (8.6-10.3); Carbon Dioxide 23 mEq/L (23-29); Chloride 108 mEq/L (98-107); Ethanol 114 mg/dL (Less than 10); Globulin 3.1 g/dL (2.4-3.5); Glucose 96 mg/dL (70-105); Lipase 18 Units/L (11-82); Magnesium 1.8 mg/dL (1.6-2.6); Osmolality,Calculated 287 (280-300); Potassium 3.8 mEq/L (3.5-5.1); Sodium 139 mEq/L (136-145); Total Protein 6.5 g/dL (6.4-8.9); Troponin I < 0.03 ng/mL (< 0.04); eGFR For African Americans > 60 (> 60); eGFR For Non-African Americans > 60 (> 60)
[2020-03-07] MEDS ORDERED: *HR* LORazepam 2 MG/ML VIAL IVP PRN ×3 (06:54)
[2020-03-07] MEDS ORDERED: Naloxone 0.4 MG/ML INJ IVP PRN (06:55)
[2020-03-07] MEDS ORDERED: *HR* HYDROmorphone (PF) 1 MG/ML SYRINGE IVP PRN (08:12)
[2020-03-07] MEDS ORDERED: Ringers Solution, Lactated 1,000 ML IVC SCH (08:15)
[2020-03-07] MEDS: Thiamine (B-1) 100 MG, Folic Acid 1 MG, MVI, adult with vitamin K 10 ML in 0.9 % Sodi... IVPB SCH ×2 (09:03→17:52)
[2020-03-07 09:50] LABS: Bilirubin,Urine Negative (Negative); Blood,Urine Negative (Negative); Clarity,Urine Clear (Clear); Color,Urine Yellow (Yellow); Glucose,Urine (UA) Normal (Normal); Granular Casts,Urine Few per lpf (None Seen); Ketones,Urine Negative (Negative); Leukocyte Esterase,Urine Negative (Negative); Mucus,Urine Few per lpf (None-Few); Nitrite,Urine Negative (Negative); Protein,Urine 30 mg/dL (Neg-Trace); RBC,Urine 0-3 per hpf (0-3); Specific Gravity,Urine 1.028 (1.010-1.025); Squamous Epithelial Cell,Urine Few per hpf (None-Few); Transitional Epi Cells,Urine Few per hpf (None-Few)
[2020-03-07] MEDS: *HR* HYDROmorphone (PF) 1 MG/ML SYRINGE IVP PRN ×4 (12:18→21:37)
[2020-03-07] MEDS: Ringers Solution, Lactated 1,000 ML IVC SCH ×2 (14:57→20:21)
[2020-03-08] MEDS: *HR* HYDROmorphone (PF) 1 MG/ML SYRINGE IVP PRN ×3 (01:13→08:07)
[2020-03-08] MEDS: Ringers Solution, Lactated 1,000 ML IVC SCH ×3 (01:15→10:47)
[2020-03-08 07:52] VITALS: BP 150/81
[2020-03-08] MEDS ORDERED: Tiotropium 18 MCG inhalation IH SCH (09:15)
[2020-03-08] MEDS ORDERED: Vitamin B Complex/Vit C/Vit E 1 EACH TABLET PO SCH (09:15)
[2020-03-08] MEDS ORDERED: Ringers Solution, Lactated 1,000 ML IVC SCH (09:15)
[2020-03-08] MEDS ORDERED: Aspirin Enteric Coated 81 MG Tablet PO SCH (09:15)
== END 2020-03-08 14:29 | disposition home or self-care (01) ==
LOC: EMEROOARM 02:41 → CDU 02:41 → SUATTDRO 05:58 → CDU 06:39 → 3BNU 17:31
PROVIDERS: ADMIT Family Medicine; ATTEND Internal Medicine

== ENCOUNTER 2020-08-14 08:27 | Observation (INO) ==
[2020-08-14] MEDS ORDERED: Morphine Sulfate 2 MG/ML SYRINGE IVP ONE (08:34)
[2020-08-14] MEDS ORDERED: Isovue-370 500 ML BOTTLE IVP ONE (08:34)
[2020-08-14] MEDS ORDERED: 0.9 % Sodium Chloride 1,000 ML IVC ONE (08:34)
[2020-08-14] MEDS ORDERED: Metoclopramide 10 MG/2 ML VIAL IVP ONE (08:37)
[2020-08-14 09:02] LABS: Basophils # 0.1 K/mcL (0.0-0.2); Basophils % 0.9 %; Eosinophils # 0.3 K/mcL (0.0-0.6); Eosinophils % 2.7 %; Hematocrit 40.1 % (37.5-50.1); Hemoglobin 13.9 g/dL (12.9-16.9); Immature Granulocytes % 0.9 % (0-4); Lymphocytes # 2.5 K/mcL (0.6-4.6); Mean Corpuscular HGB Conc 34.7 g/dL (31.6-35.5); Mean Platelet Volume 9.8 fL (9.4-12.4); Monocytes # 0.8 K/mcL (0.0-1.3); Monocytes % 8.3 %; Neutrophils # 5.6 K/mcL (1.6-8.9); Platelet Count 177 K/mcL (140-400); Red Blood Count 3.97 M/mcL (4.19-5.50); Red Cell Distribution Width 13.8 % (11.5-14.5); Segmented Neutrophils % 60.2 %; White Blood Count 9.3 K/mcL (4.3-11.1)
[2020-08-14 09:10] LABS: INR 1.1; Prothrombin Time 12.3 Seconds (9.4-12.1)
[2020-08-14 09:13] LABS: Activated Partial Thrombo Time 26.1 Seconds (26.0-36.0)
[2020-08-14 09:33] LABS: Alanine Aminotransferase 19 Units/L (7-52); Albumin 3.1 g/dL (3.5-5.7); Albumin/Globulin Ratio 0.8 (1.1-2.2); Alkaline Phosphatase 170 Units/L (34-104); Aspartate Amino Transferase 40 Units/L (13-39); BUN/Creatinine Ratio 15 (6-26); Bilirubin,Total 0.7 mg/dL (0.3-1.0); Blood Urea Nitrogen 10 mg/dL (6-20); Calcium 8.9 mg/dL (8.6-10.3); Carbon Dioxide 29 mEq/L (23-29); Chloride 98 mEq/L (98-107); Globulin 3.9 g/dL (2.4-3.5); Glucose 118 mg/dL (70-105); Lipase < 3 Units/L (11-82); Magnesium 1.8 mg/dL (1.6-2.6); Osmolality,Calculated 282 (280-300); Potassium 3.1 mEq/L (3.5-5.1); Sodium 136 mEq/L (136-145); Troponin I < 0.03 ng/mL (< 0.04); eGFR For African Americans > 60 (> 60); eGFR For Non-African Americans > 60 (> 60)
[2020-08-14] MEDS ORDERED: MetroNIDAZOLE 500 MG/100 ML 500 MG/100 ML BAG IVPB ONE (11:30)
[2020-08-14] MEDS ORDERED: levoFLOXacin 500 MG/100 ML 500 MG/100 ML BAG IVPB ONE (11:30)
[2020-08-14] MEDS ORDERED: *HR* HYDROmorphone (PF) 1 MG/ML SYRINGE IVP ONE (12:09)
[2020-08-14] MEDS ORDERED: Naloxone 0.4 MG/ML INJ IVP PRN (13:26)
[2020-08-14] MEDS ORDERED: *HR* LORazepam 2 MG/ML VIAL IVP PRN ×3 (14:17)
[2020-08-14] MEDS: Folic Acid 1 MG TABLET PO SCH (16:10)
[2020-08-14] MEDS: 0.9 % Sodium Chloride 1,000 ML IVC SCH (16:10)
[2020-08-14] MEDS: Nicotine 21 MG PATCH.TD24 TD SCH (16:12)
[2020-08-14] MEDS: Thiamine (B-1) 100 MG TABLET PO SCH (16:13)
[2020-08-14] MEDS: MetroNIDAZOLE 500 MG/100 ML 500 MG/100 ML BAG IVPB SCH (18:53)
[2020-08-15 02:22] LABS: Basophils # 0.1 K/mcL (0.0-0.2); Basophils % 0.6 %; Eosinophils # 0.2 K/mcL (0.0-0.6); Eosinophils % 1.7 %; Hematocrit 34.8 % (37.5-50.1); Hemoglobin 11.8 g/dL (12.9-16.9); Immature Granulocytes % 0.7 % (0-4); Lymphocytes # 2.8 K/mcL (0.6-4.6); Lymphocytes % 27.1 %; Mean Corpuscular HGB Conc 33.9 g/dL (31.6-35.5); Mean Corpuscular Hemoglobin 34.9 pg (28.0-33.3); Mean Platelet Volume 10.6 fL (9.4-12.4); Monocytes # 0.8 K/mcL (0.0-1.3); Monocytes % 8.2 %; Neutrophils # 6.4 K/mcL (1.6-8.9); Platelet Count 135 K/mcL (140-400); Red Blood Count 3.38 M/mcL (4.19-5.50); Red Cell Distribution Width 13.6 % (11.5-14.5); Segmented Neutrophils % 61.7 %; White Blood Count 10.3 K/mcL (4.3-11.1)
[2020-08-15 02:36] LABS: BUN/Creatinine Ratio 16 (6-26); Blood Urea Nitrogen 9 mg/dL (6-20); Calcium 7.8 mg/dL (8.6-10.3); Carbon Dioxide 24 mEq/L (23-29); Chloride 105 mEq/L (98-107); Glucose 89 mg/dL (70-105); Magnesium 1.6 mg/dL (1.6-2.6); Osmolality,Calculated 278 (280-300); Potassium 3.6 mEq/L (3.5-5.1); Sodium 135 mEq/L (136-145); eGFR For African Americans > 60 (> 60); eGFR For Non-African Americans > 60 (> 60)
[2020-08-15] MEDS: 0.9 % Sodium Chloride 1,000 ML IVC SCH (03:19)
[2020-08-15] MEDS: MetroNIDAZOLE 500 MG/100 ML 500 MG/100 ML BAG IVPB SCH (03:20)
[2020-08-15 07:02] VITALS: BP 124/79
[2020-08-15] MEDS: Thiamine (B-1) 100 MG TABLET PO SCH (07:49)
[2020-08-15] MEDS: Nicotine 21 MG PATCH.TD24 TD SCH (07:49)
[2020-08-15] MEDS: Folic Acid 1 MG TABLET PO SCH (07:49)
== END 2020-08-15 11:31 | disposition home or self-care (01) ==
LOC: 3ANU 08:27 → EMEROOARM 08:27 → SUATTDRO 12:34 → 3ANU 13:09
PROVIDERS: ADMIT Family Medicine; ATTEND Internal Medicine

== ENCOUNTER 2020-08-22 19:15 | Observation (INO) ==
[2020-08-22 19:49] LABS: Hematocrit 40.7 % (37.5-50.1); Hemoglobin 14.3 g/dL (12.9-16.9); Mean Corpuscular HGB Conc 35.1 g/dL (31.6-35.5); Mean Corpuscular Hemoglobin 34.9 pg (28.0-33.3); Mean Corpuscular Volume 99.3 fL (83.0-100.0); Mean Platelet Volume 10.1 fL (9.4-12.4); Platelet Count 221 K/mcL (140-400); Red Cell Distribution Width 13.7 % (11.5-14.5); White Blood Count 12.5 K/mcL (4.3-11.1)
[2020-08-22] MEDS ORDERED: *HR* FentaNYL (PF) 100 MCG/2 ML VIAL IVP ONE (20:00)
[2020-08-22] MEDS ORDERED: Ondansetron 4 MG/2 ML VIAL IVP ONE (20:00)
[2020-08-22] MEDS ORDERED: 0.9 % Sodium Chloride 1,000 ML IVC ONE ×2 (20:00→23:13)
[2020-08-22 20:48] LABS: Alanine Aminotransferase 20 Units/L (7-52); Albumin 3.2 g/dL (3.5-5.7); Albumin/Globulin Ratio 0.8 (1.1-2.2); Alkaline Phosphatase 138 Units/L (34-104); Amylase 20 Units/L (29-103); Aspartate Amino Transferase 72 Units/L (13-39); BUN/Creatinine Ratio 9 (6-26); Bilirubin,Direct 0.1 mg/dL (0.0-0.2); Bilirubin,Indirect 0.5 mg/dL (0.0-1.0); Bilirubin,Total 0.6 mg/dL (0.3-1.0); Blood Urea Nitrogen 6 mg/dL (6-20); Calcium 8.7 mg/dL (8.6-10.3); Carbon Dioxide 21 mEq/L (23-29); Chloride 100 mEq/L (98-107); Globulin 4.1 g/dL (2.4-3.5); Glucose 117 mg/dL (70-105); Lipase 7 Units/L (11-82); Osmolality,Calculated 281 (280-300); Potassium 3.4 mEq/L (3.5-5.1); Sodium 136 mEq/L (136-145); Total Protein 7.3 g/dL (6.4-8.9); eGFR For African Americans > 60 (> 60); eGFR For Non-African Americans > 60 (> 60)
[2020-08-22] MEDS ORDERED: Morphine Sulfate 2 MG/ML SYRINGE IVP ONE (23:13)
[2020-08-23] MEDS ORDERED: *HR* LORazepam 2 MG/ML VIAL IVP PRN ×3 (01:28)
[2020-08-23] MEDS ORDERED: Naloxone 0.4 MG/ML INJ IVP PRN (01:28)
[2020-08-23] MEDS ORDERED: Ondansetron 4 MG/2 ML VIAL IVP PRN (01:28)
[2020-08-23] MEDS ORDERED: *HR* HYDROmorphone (PF) 1 MG/ML SYRINGE IVP PRN (01:32)
[2020-08-23] MEDS ORDERED: 0.9 % Sodium Chloride 1,000 ML IVC SCH (02:15)
[2020-08-23 02:40] LABS: Basophils # 0.1 K/mcL (0.0-0.2); Basophils % 0.7 %; Eosinophils # 0.1 K/mcL (0.0-0.6); Eosinophils % 0.8 %; Immature Granulocytes % 0.6 % (0-4); Lymphocytes # 2.8 K/mcL (0.6-4.6); Lymphocytes % 26.4 %; Mean Corpuscular HGB Conc 34.4 g/dL (31.6-35.5); Mean Corpuscular Hemoglobin 35.2 pg (28.0-33.3); Mean Corpuscular Volume 102.3 fL (83.0-100.0); Mean Platelet Volume 10.1 fL (9.4-12.4); Monocytes # 1.1 K/mcL (0.0-1.3); Monocytes % 10.2 %; Neutrophils # 6.5 K/mcL (1.6-8.9); Platelet Count 163 K/mcL (140-400); Red Blood Count 3.52 M/mcL (4.19-5.50); Red Cell Distribution Width 13.6 % (11.5-14.5); Segmented Neutrophils % 61.3 %; White Blood Count 10.6 K/mcL (4.3-11.1)
[2020-08-23 02:41] LABS: Hemoglobin 12.4 g/dL (12.9-16.9)
[2020-08-23 02:48] LABS: INR 1.1; Prothrombin Time 12.6 Seconds (9.4-12.1)
[2020-08-23] MEDS: Thiamine (B-1) 100 MG, Folic Acid 1 MG, MVI, adult with vitamin K 10 ML in 0.9 % Sodi... IVPB SCH (02:49)
[2020-08-23 02:51] LABS: Activated Partial Thrombo Time 25.9 Seconds (26.0-36.0)
[2020-08-23 02:59] LABS: Alanine Aminotransferase 16 Units/L (7-52); Albumin 2.7 g/dL (3.5-5.7); Albumin/Globulin Ratio 0.9 (1.1-2.2); Alkaline Phosphatase 111 Units/L (34-104); Aspartate Amino Transferase 44 Units/L (13-39); BUN/Creatinine Ratio 9 (6-26); Bilirubin,Total 0.6 mg/dL (0.3-1.0); Blood Urea Nitrogen 6 mg/dL (6-20); Calcium 7.8 mg/dL (8.6-10.3); Carbon Dioxide 26 mEq/L (23-29); Chloride 107 mEq/L (98-107); Globulin 3.1 g/dL (2.4-3.5); Glucose 123 mg/dL (70-105); Magnesium 1.6 mg/dL (1.6-2.6); Osmolality,Calculated 287 (280-300); Phosphorous 2.9 mg/dL (2.7-4.5); Potassium 2.7 mEq/L (3.5-5.1); Sodium 139 mEq/L (136-145); Total Protein 5.8 g/dL (6.4-8.9); eGFR For African Americans > 60 (> 60); eGFR For Non-African Americans > 60 (> 60)
[2020-08-23] MEDS ORDERED: Potassium Chloride 40 MEQ, Lidocaine 1% 2 ML in 0.9 % Sodium Chloride 500 ML IVPB ONE (04:00)
[2020-08-23] MEDS: *HR* Enoxaparin 40 MG/0.4 ML SYRINGE SQ SCH (05:48)
[2020-08-23] MEDS: Ringers Solution, Lactated 1,000 ML IVC SCH ×3 (05:49→16:34)
[2020-08-23] MEDS: Nicotine 14 MG PATCH.TD24 TD SCH (08:45)
[2020-08-23] MEDS: Budesonide/Formoterol 160/4.5 1 PUFF INH IH SCH (21:50)
[2020-08-24] MEDS: Ringers Solution, Lactated 1,000 ML IVC SCH ×5 (01:03→15:09)
[2020-08-24] MEDS: *HR* Enoxaparin 40 MG/0.4 ML SYRINGE SQ SCH (05:18)
[2020-08-24] MEDS: Tiotropium 10 INH DOSE IH SCH (07:53)
[2020-08-24] MEDS: Budesonide/Formoterol 160/4.5 1 PUFF INH IH SCH ×2 (07:53→22:10)
[2020-08-24] MEDS: Ketorolac 30 MG/ML VIAL IVP PRN (08:43)
[2020-08-24] MEDS: Nicotine 14 MG PATCH.TD24 TD SCH (08:43)
[2020-08-24 09:32] LABS: BUN/Creatinine Ratio 7 (6-26); Blood Urea Nitrogen 4 mg/dL (6-20); Calcium 7.6 mg/dL (8.6-10.3); Carbon Dioxide 27 mEq/L (23-29); Chloride 107 mEq/L (98-107); Glucose 83 mg/dL (70-105); Osmolality,Calculated 284 (280-300); Potassium 3.4 mEq/L (3.5-5.1); Sodium 139 mEq/L (136-145); eGFR For African Americans > 60 (> 60); eGFR For Non-African Americans > 60 (> 60)
[2020-08-24] MEDS: Thiamine (B-1) 100 MG, Folic Acid 1 MG, MVI, adult with vitamin K 10 ML in 0.9 % Sodi... IVPB SCH (17:39)
[2020-08-25] MEDS: Ringers Solution, Lactated 1,000 ML IVC SCH (00:33)
[2020-08-25] MEDS: *HR* Enoxaparin 40 MG/0.4 ML SYRINGE SQ SCH (05:27)
[2020-08-25 05:46] LABS: Bilirubin,Urine Negative (Negative); Blood,Urine Negative (Negative); Clarity,Urine Clear (Clear); Color,Urine Light-Yellow (Yellow); Glucose,Urine (UA) Normal (Normal); Ketones,Urine Negative (Negative); Leukocyte Esterase,Urine Negative (Negative); Nitrite,Urine Negative (Negative); Protein,Urine Negative (Neg-Trace); Specific Gravity,Urine 1.006 (1.010-1.025); Urobilinogen,Urine Normal (Normal)
[2020-08-25] MEDS: Budesonide/Formoterol 160/4.5 1 PUFF INH IH SCH (08:01)
[2020-08-25] MEDS: Tiotropium 10 INH DOSE IH SCH (08:01)
[2020-08-25] MEDS: Ketorolac 30 MG/ML VIAL IVP PRN (09:02)
[2020-08-25] MEDS: Nicotine 14 MG PATCH.TD24 TD SCH (09:02)
[2020-08-25 10:26] VITALS: BP 147/89
== END 2020-08-25 14:09 | disposition home or self-care (01) ==
LOC: 3ANU 19:15 → EMEROOARM 19:15 → SUATTDRO 08-23 00:29 → 3ANU 08-23 00:42
PROVIDERS: ADMIT Internal Medicine; ATTEND Internal Medicine

== ENCOUNTER 2020-10-08 14:43 | Inpatient (IN) ==
[2020-10-08] MEDS ORDERED: 0.9 % Sodium Chloride 1,000 ML IVC ONE (15:17)
[2020-10-08] MEDS ORDERED: Isovue-370 500 ML BOTTLE IVP ONE (15:20)
[2020-10-08 15:51] LABS: Hematocrit 37.5 % (37.5-50.1); Mean Corpuscular HGB Conc 34.7 g/dL (31.6-35.5); Mean Corpuscular Hemoglobin 33.3 pg (28.0-33.3); Mean Corpuscular Volume 96.2 fL (83.0-100.0); Mean Platelet Volume 10.4 fL (9.4-12.4); Platelet Count 182 K/mcL (140-400); Red Cell Distribution Width 13.1 % (11.5-14.5)
[2020-10-08 15:54] LABS: White Blood Count 38.1 K/mcL (4.3-11.1)
[2020-10-08 16:07] LABS: Lymphocytes # 2.3 K/mcL (0.6-4.6); Monocytes # 0.8 K/mcL (0.0-1.3); Neutrophils # 35.1 K/mcL (1.6-8.9); Platelet Estimate Normal (Normal)
[2020-10-08 16:10] LABS: Albumin 2.5 g/dL (3.5-5.7); Albumin/Globulin Ratio 0.8 (1.1-2.2); Bilirubin,Direct 0.2 mg/dL (0.0-0.2); Bilirubin,Indirect 0.4 mg/dL (0.0-1.0); Bilirubin,Total 0.6 mg/dL (0.3-1.0); Globulin 3.3 g/dL (2.4-3.5); Total Protein 5.8 g/dL (6.4-8.9)
[2020-10-08 16:18] LABS: BUN/Creatinine Ratio 13 (6-26); Blood Urea Nitrogen 7 mg/dL (6-20); Calcium 8.1 mg/dL (8.6-10.3); Carbon Dioxide 34 mEq/L (23-29); Chloride 92 mEq/L (98-107); Glucose 127 mg/dL (70-105); Osmolality,Calculated 280 (280-300); Potassium 2.4 mEq/L (3.5-5.1); Sodium 135 mEq/L (136-145); Troponin I < 0.03 ng/mL (< 0.04); eGFR For African Americans > 60 (> 60); eGFR For Non-African Americans > 60 (> 60)
[2020-10-08] MEDS ORDERED: Potassium Chloride 40 MEQ, Lidocaine 1% 2 ML in 0.9 % Sodium Chloride 500 ML IVPB ONE ×2 (16:19→22:30)
[2020-10-08] MEDS ORDERED: MetroNIDAZOLE 500 MG/100 ML 500 MG/100 ML BAG IVPB ONE (18:00)
[2020-10-08 18:19] LABS: Bilirubin,Urine Negative (Negative); Blood,Urine Negative (Negative); Clarity,Urine Clear (Clear); Color,Urine Yellow (Yellow); Glucose,Urine (UA) Normal (Normal); Ketones,Urine 20 mg/dL (Negative); Leukocyte Esterase,Urine Negative (Negative); Nitrite,Urine Negative (Negative); Protein,Urine Trace mg/dL (Neg-Trace); Specific Gravity,Urine > 1.030 (1.010-1.025)
[2020-10-08 18:30] LABS: Amphetamine Screen,Urine Negative ng/mL (Cutoff=1000); Barbiturate Screen,Urine Negative ng/mL (Cutoff=200); Benzodiazepines Screen,Urine Negative ng/mL (Cutoff=200); Cannabinoid Screen,Urine Negative ng/mL (Cutoff = 50); Cocaine Screen,Urine Negative ng/mL (Cutoff= 300); Opiate Screen,Urine Positive ng/mL (Cutoff=300); Phencyclidine Screen,Urine Negative ng/mL (Cutoff=25)
[2020-10-08] MEDS ORDERED: Naloxone 0.4 MG/ML INJ IVP PRN (19:14)
[2020-10-08] MEDS ORDERED: Ondansetron 4 MG/2 ML VIAL IVP PRN (19:14)
[2020-10-08] MEDS ORDERED: Acetaminophen 325 MG TABLET PO PRN (19:14)
[2020-10-08] MEDS: 0.9 % Sodium Chloride 1,000 ML IVC SCH (22:21)
[2020-10-09] MEDS ORDERED: *HR* LORazepam 2 MG/ML VIAL IVP PRN ×3 (01:01)
[2020-10-09 01:23] LABS: Adenovirus Not Detected (Not Detect); Coronavirus 229E Not Detected (Not Detect); Coronavirus HKU1 Not Detected (Not Detect); Coronavirus NL63 Not Detected (Not Detect); Coronavirus OC43 Not Detected (Not Detect); Human Metapneumovirus Not Detected (Not Detect); Human Rhinovirus/Enterovirus Not Detected (Not Detect); Influenza A Subtype 2009 H1 Not Detected (Not Detect); Influenza B Not Detected (Not Detect); SARS-CoV-2 Not Detected (Not Detect)
[2020-10-09 01:24] LABS: Bordetella Pertussis Not Detected (Not Detect); Chlamydophila pneumoniae Not Detected (Not Detect); Mycoplasma pneumoniae Not Detected (Not Detect); Parainfluenza Virus 1 Not Detected (Not Detect); Parainfluenza Virus 2 Not Detected (Not Detect); Parainfluenza Virus 3 Not Detected (Not Detect); Parainfluenza Virus 4 Not Detected (Not Detect); Respiratory Syncytial Virus Not Detected (Not Detect)
[2020-10-09] MEDS ORDERED: MetroNIDAZOLE 500 MG/100 ML 500 MG/100 ML BAG IVPB SCH (03:00)
[2020-10-09 06:03] LABS: Basophils % 0.2 %; Lymphocytes % 8.1 %
[2020-10-09 06:04] LABS: Hematocrit 31.9 % (37.5-50.1); Hemoglobin 11.2 g/dL (12.9-16.9); Immature Granulocytes % 1.1 % (0-4); Lymphocytes # 2.1 K/mcL (0.6-4.6); Mean Corpuscular HGB Conc 35.1 g/dL (31.6-35.5); Mean Corpuscular Hemoglobin 33.4 pg (28.0-33.3); Mean Corpuscular Volume 95.2 fL (83.0-100.0); Mean Platelet Volume 10.6 fL (9.4-12.4); Monocytes # 1.1 K/mcL (0.0-1.3); Monocytes % 4.1 %; Neutrophils # 22.5 K/mcL (1.6-8.9); Platelet Count 161 K/mcL (140-400); Red Blood Count 3.35 M/mcL (4.19-5.50); Segmented Neutrophils % 86.5 %
[2020-10-09 06:06] LABS: Basophils # 0.1 K/mcL (0.0-0.2)
[2020-10-09 06:10] LABS: INR 1.2; Prothrombin Time 13.7 Seconds (9.4-12.1)
[2020-10-09 06:26] LABS: Alanine Aminotransferase 6 Units/L (7-52); Albumin 2.2 g/dL (3.5-5.7); Albumin/Globulin Ratio 0.8 (1.1-2.2); Alkaline Phosphatase 81 Units/L (34-104); Aspartate Amino Transferase 10 Units/L (13-39); BUN/Creatinine Ratio 21 (6-26); Bilirubin,Total 0.3 mg/dL (0.3-1.0); Blood Urea Nitrogen 8 mg/dL (6-20); Calcium 7.4 mg/dL (8.6-10.3); Carbon Dioxide 25 mEq/L (23-29); Chloride 103 mEq/L (98-107); Chol/HDL Ratio 3.7 (0-4.9); Cholesterol 63 mg/dL (< 200); Globulin 2.8 g/dL (2.4-3.5); Glucose 106 mg/dL (70-105); HDL Cholesterol 17 mg/dL (40-59); LDL Cholesterol,Calculated 23 mg/dL (< 100); Magnesium 1.8 mg/dL (1.6-2.6); Osmolality,Calculated 283 (280-300); Potassium 2.7 mEq/L (3.5-5.1); Sodium 137 mEq/L (136-145); Triglycerides 116 mg/dL (< 150); eGFR For African Americans > 60 (> 60); eGFR For Non-African Americans > 60 (> 60)
[2020-10-09 06:33] LABS: Platelet Estimate Normal (Normal); Toxic Granulation Present (Not Present)
[2020-10-09] MEDS: 0.9 % Sodium Chloride 1,000 ML IVC SCH (06:56)
[2020-10-09 08:27] LABS: Adenovirus F 40/41 PCR Not detected (Not detect); Astrovirus PCR Not detected (Not detect); Campylobacter by PCR Not detected (Not detect); Cryptosporidium by PCR Not detected (Not detect); Cyclospora cayetanensis PCR Not detected (Not detect); E. coli O157 by PCR Not detected (Not detect); Entamoeba histolytica PCR Not detected (Not detect); Enteroaggregative E.coli(EAEC) Not detected (Not detect); Enteropathogenic E.coli(EPEC) Not detected (Not detect); Enterotoxigenic E.coli (ETEC) Not detected (Not detect); Giardia lamblia PCR Not detected (Not detect); Norovirus GI/GII PCR Not detected (Not detect); Plesiomonas shigelloides PCR Not detected (Not detect); Rotavirus A PCR Not detected (Not detect); Salmonella PCR Not detected (Not detect); Sapovirus PCR Not detected (Not detect); Shig/EnteroinvasiveE coli EIEC Not detected (Not detect); Shigalike tox-prod E coli STEC Not detected (Not detect); Vibrio PCR Not detected (Not detect); Vibrio cholerae PCR Not detected (Not detect); Yersinia enterocolitica PCR Not detected (Not detect)
[2020-10-09 08:34] LABS: C.difficile Toxin A/B Gene PCR DETECTED (Not detect)
[2020-10-09] MEDS: Vancomycin Oral Soln 125 MG/2.5 ML UDC PO SCH ×4 (09:27→20:32)
[2020-10-09] MEDS: *HR* OxyCODONE/APAP 5/325 TABLET PO PRN ×2 (11:15→17:17)
[2020-10-09] MEDS ORDERED: Potassium Effervescent 25 MEQ TABLET.EFF PO ONE (13:26)
[2020-10-09] MEDS ORDERED: Potassium Chloride 40 MEQ, Lidocaine 1% 2 ML in 0.9 % Sodium Chloride 500 ML IVPB ONE (13:29)
[2020-10-09] MEDS: Vitamin B Complex/Vit C/Vit E 1 EACH TABLET PO SCH (15:58)
[2020-10-09] MEDS ORDERED: SODIUM CHLORIDE/NAHCO3/KCL/PEG 4,000 ML SOLN.RECON PO ONE (17:00)
[2020-10-09] MEDS: Budesonide/Formoterol 160/4.5 1 PUFF INH IH SCH (20:21)
[2020-10-10] MEDS: *HR* OxyCODONE/APAP 5/325 TABLET PO PRN ×4 (00:19→19:07)
[2020-10-10 03:03] LABS: Basophils # 0.1 K/mcL (0.0-0.2); Basophils % 0.5 %; Eosinophils # 0.1 K/mcL (0.0-0.6); Eosinophils % 0.7 %; Hematocrit 31.3 % (37.5-50.1); Hemoglobin 10.9 g/dL (12.9-16.9); Immature Granulocytes % 1.6 % (0-4); Lymphocytes # 2.6 K/mcL (0.6-4.6); Lymphocytes % 25.3 %; Mean Corpuscular HGB Conc 34.8 g/dL (31.6-35.5); Mean Corpuscular Hemoglobin 32.9 pg (28.0-33.3); Mean Corpuscular Volume 94.6 fL (83.0-100.0); Mean Platelet Volume 10.6 fL (9.4-12.4); Monocytes # 0.8 K/mcL (0.0-1.3); Monocytes % 7.6 %; Neutrophils # 6.5 K/mcL (1.6-8.9); Platelet Count 143 K/mcL (140-400); Red Blood Count 3.31 M/mcL (4.19-5.50); Red Cell Distribution Width 13.2 % (11.5-14.5); Segmented Neutrophils % 64.3 %
[2020-10-10 03:04] LABS: White Blood Count 10.1 K/mcL (4.3-11.1)
[2020-10-10 03:23] LABS: BUN/Creatinine Ratio 21 (6-26); Blood Urea Nitrogen 8 mg/dL (6-20); Calcium 7.4 mg/dL (8.6-10.3); Carbon Dioxide 26 mEq/L (23-29); Chloride 107 mEq/L (98-107); Glucose 99 mg/dL (70-105); Osmolality,Calculated 282 (280-300); Potassium 2.7 mEq/L (3.5-5.1); Sodium 137 mEq/L (136-145); eGFR For African Americans > 60 (> 60); eGFR For Non-African Americans > 60 (> 60)
[2020-10-10] MEDS: Tiotropium 10 INH DOSE IH SCH (07:54)
[2020-10-10] MEDS: Budesonide/Formoterol 160/4.5 1 PUFF INH IH SCH ×2 (07:54→20:21)
[2020-10-10] MEDS: Thiamine (B-1) 100 MG TABLET PO SCH (08:06)
[2020-10-10] MEDS: Vancomycin Oral Soln 125 MG/2.5 ML UDC PO SCH ×4 (08:07→22:46)
[2020-10-10] MEDS ORDERED: Potassium Chloride 40 MEQ, Lidocaine 1% 2 ML in 0.9 % Sodium Chloride 500 ML IVPB ONE ×2 (08:42→18:00)
[2020-10-10] MEDS ORDERED: Potassium Effervescent 25 MEQ TABLET.EFF PO ONE (08:43)
[2020-10-11] MEDS: *HR* OxyCODONE/APAP 5/325 TABLET PO PRN ×4 (01:14→20:26)
[2020-10-11 02:05] LABS: Basophils # 0.1 K/mcL (0.0-0.2); Basophils % 0.8 %; Eosinophils # 0.1 K/mcL (0.0-0.6); Hematocrit 32.2 % (37.5-50.1); Hemoglobin 10.6 g/dL (12.9-16.9); Immature Granulocytes % 2.6 % (0-4); Lymphocytes # 3.5 K/mcL (0.6-4.6); Lymphocytes % 34.8 %; Mean Corpuscular HGB Conc 32.9 g/dL (31.6-35.5); Mean Corpuscular Hemoglobin 32.6 pg (28.0-33.3); Mean Corpuscular Volume 99.1 fL (83.0-100.0); Mean Platelet Volume 11.1 fL (9.4-12.4); Monocytes # 0.9 K/mcL (0.0-1.3); Monocytes % 9.4 %; Neutrophils # 5.1 K/mcL (1.6-8.9); Platelet Count 148 K/mcL (140-400); Red Blood Count 3.25 M/mcL (4.19-5.50); Red Cell Distribution Width 13.8 % (11.5-14.5); Segmented Neutrophils % 51.4 %
[2020-10-11 02:27] LABS: BUN/Creatinine Ratio 22 (6-26); Blood Urea Nitrogen 10 mg/dL (6-20); Calcium 7.3 mg/dL (8.6-10.3); Carbon Dioxide 23 mEq/L (23-29); Chloride 108 mEq/L (98-107); Glucose 90 mg/dL (70-105); Osmolality,Calculated 279 (280-300); Potassium 3.9 mEq/L (3.5-5.1); Sodium 135 mEq/L (136-145); eGFR For African Americans > 60 (> 60); eGFR For Non-African Americans > 60 (> 60)
[2020-10-11] MEDS: Budesonide/Formoterol 160/4.5 1 PUFF INH IH SCH ×2 (07:30→19:53)
[2020-10-11] MEDS: Tiotropium 10 INH DOSE IH SCH (07:30)
[2020-10-11] MEDS: Thiamine (B-1) 100 MG TABLET PO SCH (07:43)
[2020-10-11] MEDS: Vancomycin Oral Soln 125 MG/2.5 ML UDC PO SCH ×4 (07:44→20:20)
[2020-10-11] MEDS: Vitamin B Complex/Vit C/Vit E 1 EACH TABLET PO SCH (14:34)
[2020-10-12] MEDS: *HR* OxyCODONE/APAP 5/325 TABLET PO PRN ×2 (02:27→09:02)
[2020-10-12] MEDS: Tiotropium 10 INH DOSE IH SCH (07:44)
[2020-10-12] MEDS: Thiamine (B-1) 100 MG TABLET PO SCH (09:01)
[2020-10-12] MEDS: Vancomycin Oral Soln 125 MG/2.5 ML UDC PO SCH ×2 (09:02→13:13)
[2020-10-12 13:04] VITALS: BP 104/67
== END 2020-10-12 14:06 | disposition home or self-care (01) | DRG 872 ==
LOC: EMEROOARM 14:43 → 3ANU 20:12 → SUATTDRO 20:12 → 3ANU 20:47
PROVIDERS: ADMIT Internal Medicine; ATTEND Internal Medicine

== ENCOUNTER 2020-11-06 15:36 | Observation (INO) ==
[2020-11-06] MEDS ORDERED: Ondansetron 4 MG/2 ML VIAL IVP PRN (19:21)
[2020-11-06] MEDS ORDERED: Naloxone 0.4 MG/ML INJ IVP PRN (19:21)
[2020-11-06] MEDS ORDERED: 0.9 % Sodium Chloride 1,000 ML IVC SCH (19:30)
[2020-11-06 20:07] LABS: Basophils % 0.5 %; Eosinophils # 0.1 K/mcL (0.0-0.6); Eosinophils % 1.1 %; Hematocrit 32.2 % (37.5-50.1); Hemoglobin 10.9 g/dL (12.9-16.9); Immature Granulocytes % 0.9 % (0-4); Lymphocytes # 3.2 K/mcL (0.6-4.6); Lymphocytes % 39.6 %; Mean Corpuscular HGB Conc 33.9 g/dL (31.6-35.5); Mean Corpuscular Hemoglobin 32.6 pg (28.0-33.3); Mean Corpuscular Volume 96.4 fL (83.0-100.0); Mean Platelet Volume 10.5 fL (9.4-12.4); Monocytes # 0.6 K/mcL (0.0-1.3); Monocytes % 7.7 %; Platelet Count 125 K/mcL (140-400); Red Blood Count 3.34 M/mcL (4.19-5.50); Red Cell Distribution Width 16.5 % (11.5-14.5); Segmented Neutrophils % 50.2 %
[2020-11-06 20:26] LABS: Alanine Aminotransferase 12 Units/L (7-52); Albumin 2.3 g/dL (3.5-5.7); Albumin/Globulin Ratio 0.7 (1.1-2.2); Alkaline Phosphatase 171 Units/L (34-104); Aspartate Amino Transferase 30 Units/L (13-39); BUN/Creatinine Ratio 35 (6-26); Bilirubin,Total 0.6 mg/dL (0.3-1.0); Blood Urea Nitrogen 17 mg/dL (6-20); Calcium 7.7 mg/dL (8.6-10.3); Carbon Dioxide 31 mEq/L (23-29); Chloride 99 mEq/L (98-107); Globulin 3.1 g/dL (2.4-3.5); Glucose 76 mg/dL (70-105); Magnesium 1.7 mg/dL (1.6-2.6); Osmolality,Calculated 284 (280-300); Potassium 2.8 mEq/L (3.5-5.1); Sodium 137 mEq/L (136-145); Total Protein 5.4 g/dL (6.4-8.9); eGFR For African Americans > 60 (> 60); eGFR For Non-African Americans > 60 (> 60)
[2020-11-06 20:33] LABS: Platelet Estimate Normal (Normal)
[2020-11-06] MEDS ORDERED: Potassium Chloride 20 MEQ, Lidocaine 1% 2 ML in 0.9 % Sodium Chloride 250 ML IVPB ONE (23:57)
[2020-11-07] MEDS ORDERED: Magnesium Sulfate 1 GM/102 ML PIGGYBACK IVPB ONE (00:04)
[2020-11-07 01:38] LABS: Campylobacter by PCR Not detected (Not detect)
[2020-11-07 01:40] LABS: Adenovirus F 40/41 PCR Not detected (Not detect); Astrovirus PCR Not detected (Not detect); C.difficile Toxin A/B Gene PCR DETECTED (Not detect); Cryptosporidium by PCR Not detected (Not detect); Cyclospora cayetanensis PCR Not detected (Not detect); E. coli O157 by PCR Not detected (Not detect); Entamoeba histolytica PCR Not detected (Not detect); Enteroaggregative E.coli(EAEC) Not detected (Not detect); Enteropathogenic E.coli(EPEC) Not detected (Not detect); Enterotoxigenic E.coli (ETEC) Not detected (Not detect); Giardia lamblia PCR Not detected (Not detect); Norovirus GI/GII PCR Not detected (Not detect); Plesiomonas shigelloides PCR Not detected (Not detect); Rotavirus A PCR Not detected (Not detect); Salmonella PCR Not detected (Not detect); Sapovirus PCR Not detected (Not detect); Shig/EnteroinvasiveE coli EIEC Not detected (Not detect); Shigalike tox-prod E coli STEC Not detected (Not detect); Vibrio PCR Not detected (Not detect); Vibrio cholerae PCR Not detected (Not detect); Yersinia enterocolitica PCR Not detected (Not detect)
[2020-11-07] MEDS: Vancomycin Oral Soln 125 MG/2.5 ML UDC PO SCH ×5 (02:53→21:25)
[2020-11-07 05:32] LABS: Hematocrit 30.9 % (37.5-50.1); Hemoglobin 10.5 g/dL (12.9-16.9); Mean Corpuscular Hemoglobin 33.4 pg (28.0-33.3); Mean Corpuscular Volume 98.4 fL (83.0-100.0); Mean Platelet Volume 10.7 fL (9.4-12.4); Platelet Count 136 K/mcL (140-400); Red Blood Count 3.14 M/mcL (4.19-5.50); Red Cell Distribution Width 16.7 % (11.5-14.5)
[2020-11-07 05:44] LABS: BUN/Creatinine Ratio 36 (6-26); Blood Urea Nitrogen 16 mg/dL (6-20); Calcium 7.4 mg/dL (8.6-10.3); Carbon Dioxide 24 mEq/L (23-29); Chloride 104 mEq/L (98-107); Glucose 68 mg/dL (70-105); Osmolality,Calculated 283 (280-300); Potassium 3.3 mEq/L (3.5-5.1); Sodium 137 mEq/L (136-145); eGFR For African Americans > 60 (> 60); eGFR For Non-African Americans > 60 (> 60)
[2020-11-07] MEDS ORDERED: *HR* LORazepam 2 MG/ML VIAL IVP PRN ×3 (09:03)
[2020-11-07] MEDS ORDERED: D5% in Water 1,000 ML IVC PRN (11:03)
[2020-11-07] MEDS ORDERED: *HR* Dextrose 50 % in Water (Vial) 50 ML VIAL IVP PRN (11:03)
[2020-11-07] MEDS ORDERED: Dextrose Gel 15 GM/37.5 ML TUBE PO PRN ×2 (11:03)
[2020-11-07] MEDS: 0.9 % Sodium Chloride 1,000 ML IVC SCH (12:58)
[2020-11-07] MEDS: Lactobacillus 1 EACH CAP.SPRINK PO SCH (14:13)
[2020-11-07] MEDS: Budesonide/Formoterol 160/4.5 1 PUFF INH IH SCH ×2 (14:33→22:42)
[2020-11-07] MEDS ORDERED: Potassium Chloride 20 MEQ, Lidocaine 1% 2 ML in 0.9 % Sodium Chloride 250 ML IVPB ONE (15:00)
[2020-11-07] MEDS: Thiamine (B-1) 100 MG, Folic Acid 1 MG, MVI, adult with vitamin K 10 ML in 0.9 % Sodi... IVPB SCH (17:42)
[2020-11-08] MEDS: 0.9 % Sodium Chloride 1,000 ML IVC SCH ×2 (01:14→15:40)
[2020-11-08 08:53] LABS: Basophils # 0.1 K/mcL (0.0-0.2); Basophils % 0.5 %; Eosinophils # 0.2 K/mcL (0.0-0.6); Eosinophils % 1.4 %; Hematocrit 35.2 % (37.5-50.1); Hemoglobin 11.9 g/dL (12.9-16.9); Immature Granulocytes % 0.8 % (0-4); Lymphocytes # 2.8 K/mcL (0.6-4.6); Lymphocytes % 23.8 %; Mean Corpuscular HGB Conc 33.8 g/dL (31.6-35.5); Mean Corpuscular Hemoglobin 33.6 pg (28.0-33.3); Mean Corpuscular Volume 99.4 fL (83.0-100.0); Mean Platelet Volume 10.4 fL (9.4-12.4); Monocytes % 8.6 %; Neutrophils # 7.5 K/mcL (1.6-8.9); Platelet Count 148 K/mcL (140-400); Red Blood Count 3.54 M/mcL (4.19-5.50); Red Cell Distribution Width 17.3 % (11.5-14.5); Segmented Neutrophils % 64.9 %; White Blood Count 11.5 K/mcL (4.3-11.1)
[2020-11-08 09:13] LABS: BUN/Creatinine Ratio 20 (6-26); Blood Urea Nitrogen 9 mg/dL (6-20); Calcium 7.5 mg/dL (8.6-10.3); Carbon Dioxide 29 mEq/L (23-29); Chloride 104 mEq/L (98-107); Glucose 109 mg/dL (70-105); Osmolality,Calculated 281 (280-300); Potassium 3.2 mEq/L (3.5-5.1); Sodium 136 mEq/L (136-145); eGFR For African Americans > 60 (> 60); eGFR For Non-African Americans > 60 (> 60)
[2020-11-08] MEDS: Lactobacillus 1 EACH CAP.SPRINK PO SCH (09:28)
[2020-11-08] MEDS: Vancomycin Oral Soln 125 MG/2.5 ML UDC PO SCH ×4 (09:28→21:10)
[2020-11-08] MEDS: Aspirin Enteric Coated 81 MG Tablet PO SCH (09:28)
[2020-11-08] MEDS: Tiotropium 10 INH DOSE IH SCH (11:44)
[2020-11-08] MEDS: Budesonide/Formoterol 160/4.5 1 PUFF INH IH SCH ×2 (11:45→21:57)
[2020-11-08] MEDS ORDERED: Potassium Chloride 40 MEQ, Lidocaine 1% 2 ML in 0.9 % Sodium Chloride 500 ML IVPB ONE (12:15)
[2020-11-08] MEDS: Thiamine (B-1) 100 MG, Folic Acid 1 MG, MVI, adult with vitamin K 10 ML in 0.9 % Sodi... IVPB SCH (17:19)
[2020-11-09 04:04] VITALS: BP 152/92
[2020-11-09] MEDS: 0.9 % Sodium Chloride 1,000 ML IVC SCH (04:37)
[2020-11-09] MEDS: Tiotropium 10 INH DOSE IH SCH (07:27)
[2020-11-09] MEDS: Budesonide/Formoterol 160/4.5 1 PUFF INH IH SCH (07:28)
[2020-11-09 08:23] LABS: Basophils # 0.1 K/mcL (0.0-0.2); Basophils % 0.6 %; Eosinophils # 0.2 K/mcL (0.0-0.6); Eosinophils % 1.4 %; Hematocrit 35.1 % (37.5-50.1); Hemoglobin 11.6 g/dL (12.9-16.9); Immature Granulocytes % 1.3 % (0-4); Lymphocytes # 3.4 K/mcL (0.6-4.6); Lymphocytes % 32.6 %; Mean Corpuscular Hemoglobin 33.3 pg (28.0-33.3); Mean Corpuscular Volume 100.9 fL (83.0-100.0); Mean Platelet Volume 10.3 fL (9.4-12.4); Monocytes # 1.1 K/mcL (0.0-1.3); Monocytes % 10.1 %; Neutrophils # 5.6 K/mcL (1.6-8.9); Platelet Count 149 K/mcL (140-400); Red Blood Count 3.48 M/mcL (4.19-5.50); Red Cell Distribution Width 17.6 % (11.5-14.5); White Blood Count 10.4 K/mcL (4.3-11.1)
[2020-11-09 08:39] LABS: BUN/Creatinine Ratio 12 (6-26); Blood Urea Nitrogen 5 mg/dL (6-20); Calcium 7.9 mg/dL (8.6-10.3); Carbon Dioxide 26 mEq/L (23-29); Chloride 108 mEq/L (98-107); Glucose 116 mg/dL (70-105); Osmolality,Calculated 282 (280-300); Potassium 3.4 mEq/L (3.5-5.1); Sodium 137 mEq/L (136-145); eGFR For African Americans > 60 (> 60); eGFR For Non-African Americans > 60 (> 60)
[2020-11-09] MEDS: Vancomycin Oral Soln 125 MG/2.5 ML UDC PO SCH (10:44)
[2020-11-09] MEDS: Lactobacillus 1 EACH CAP.SPRINK PO SCH (10:47)
[2020-11-09] MEDS: Aspirin Enteric Coated 81 MG Tablet PO SCH (10:48)
== END 2020-11-09 12:30 | disposition home health service (06) ==
LOC: CDU → SUATTDRO 18:52 → 2NENU 11-09 00:22
PROVIDERS: ADMIT Internal Medicine; ATTEND Family Medicine

== ENCOUNTER 2021-01-21 21:47 | Inpatient (IN) ==
[2021-01-21] MEDS ORDERED: 0.9 % Sodium Chloride 1,000 ML IVC ONE (22:11)
[2021-01-21] MEDS ORDERED: Isovue-370 500 ML BOTTLE IVP ONE (22:13)
[2021-01-21] MEDS ORDERED: *HR* FentaNYL (PF) 100 MCG/2 ML VIAL IVP ONE (22:14)
[2021-01-21 22:37] LABS: Basophils # 0.1 K/mcL (0.0-0.2); Basophils % 0.3 %; Eosinophils # 0.1 K/mcL (0.0-0.6); Eosinophils % 0.4 %; Hematocrit 35.5 % (37.5-50.1); Hemoglobin 12.6 g/dL (12.9-16.9); Immature Granulocytes % 1.6 % (0-4); Lymphocytes # 1.2 K/mcL (0.6-4.6); Lymphocytes % 5.2 %; Mean Corpuscular HGB Conc 35.5 g/dL (31.6-35.5); Mean Corpuscular Hemoglobin 35.8 pg (28.0-33.3); Mean Corpuscular Volume 100.9 fL (83.0-100.0); Mean Platelet Volume 10.4 fL (9.4-12.4); Monocytes # 1.6 K/mcL (0.0-1.3); Neutrophils # 19.8 K/mcL (1.6-8.9); Nucleated Red Blood Cells 0.1 /100 WBC (0); Platelet Count 127 K/mcL (140-400); Red Blood Count 3.52 M/mcL (4.19-5.50); Red Cell Distribution Width 13.5 % (11.5-14.5); Segmented Neutrophils % 85.5 %; White Blood Count 23.2 K/mcL (4.3-11.1)
[2021-01-21 22:51] LABS: INR 1.4; Prothrombin Time 16.2 Seconds (9.4-12.1)
[2021-01-21 22:54] LABS: Activated Partial Thrombo Time 32.3 Seconds (26.0-36.0)
[2021-01-21 23:05] LABS: Alanine Aminotransferase 64 Units/L (7-52); Albumin 2.2 g/dL (3.5-5.7); Albumin/Globulin Ratio 0.7 (1.1-2.2); Alkaline Phosphatase 259 Units/L (34-104); Aspartate Amino Transferase 348 Units/L (13-39); BUN/Creatinine Ratio 19 (6-26); Bilirubin,Direct 0.8 mg/dL (0.0-0.2); Bilirubin,Indirect 0.7 mg/dL (0.0-1.0); Bilirubin,Total 1.5 mg/dL (0.3-1.0); Blood Urea Nitrogen 12 mg/dL (6-20); Calcium 7.8 mg/dL (8.6-10.3); Carbon Dioxide 24 mEq/L (23-29); Chloride 99 mEq/L (98-107); Globulin 3.3 g/dL (2.4-3.5); Glucose 135 mg/dL (70-105); Lipase 5 Units/L (11-82); Magnesium 1.4 mg/dL (1.6-2.6); Osmolality,Calculated 286 (280-300); Phosphorous 3.3 mg/dL (2.7-4.5); Potassium 3.1 mEq/L (3.5-5.1); Sodium 137 mEq/L (136-145); Total Protein 5.5 g/dL (6.4-8.9); Troponin I < 0.03 ng/mL (< 0.04); eGFR For African Americans > 60 (> 60); eGFR For Non-African Americans > 60 (> 60)
[2021-01-21 23:15] LABS: Clarity,Urine Clear (Clear); Color,Urine Orange (Yellow)
[2021-01-21] MEDS ORDERED: 0.9 % Sodium Chloride 1,000 ML ONE (23:16)
[2021-01-21] MEDS ORDERED: 0.9 % Sodium Chloride 1,000 ML IV ONE (23:17)
[2021-01-21 23:18] LABS: Bacteria,Urine Few per hpf (None-Few); Hyaline Casts,Urine Moderate per lpf (None Seen); Mucus,Urine Many per lpf (None-Few); RBC,Urine 0-3 per hpf (0-3); Squamous Epithelial Cell,Urine Few per hpf (None-Few); WBC,Urine 0-3 per hpf (0-3)
[2021-01-22] MEDS ORDERED: Cefepime HCl 2,000 MG in Water for inj. (sterile) 20 ML IVP STA (00:07)
[2021-01-22 00:10] LABS: Influenza A PCR Negative (Negative); Influenza B PCR Negative (Negative); Resp. Syncytial Virus PCR Negative (Negative)
[2021-01-22 00:20] LABS: SARS-CoV-2 by PCR (In House) Negative (Negative)
[2021-01-22] MEDS ORDERED: *HR* FentaNYL (PF) 100 MCG/2 ML VIAL IVP ONE (01:17)
[2021-01-22] MEDS ORDERED: 0.9 % Sodium Chloride 500 ML IVC ONE (02:42)
[2021-01-22] MEDS ORDERED: Norepinephrine 4 MG in 0.9 % Sodium Chloride 250 ML IVC SCH (02:45)
[2021-01-22] MEDS ORDERED: Naloxone 0.4 MG/ML INJ IVP PRN ×2 (04:51→05:59)
[2021-01-22] MEDS ORDERED: Ondansetron 4 MG/2 ML VIAL IVP PRN (04:51)
[2021-01-22] MEDS ORDERED: Magnesium Sulfate 1 GM/102 ML PIGGYBACK IVPB ONE (04:55)
[2021-01-22] MEDS ORDERED: Potassium Phosphate 44 MEQ in 0.9 % Sodium Chloride 250 ML IVPB ONE (04:55)
[2021-01-22] MEDS ORDERED: Vancomycin (wt based) 1,000 MG VIAL IVPB SCH (05:00)
[2021-01-22 05:20] LABS: Hepatitis B Surface Antigen Nonreactive (Nonreactive)
[2021-01-22 05:48] LABS: Hepatitis C Virus Antibody Nonreactive (Nonreactive)
[2021-01-22 05:49] LABS: Hepatitis B Core IgM Nonreactive (Nonreactive)
[2021-01-22 05:50] LABS: Hepatitis A Antibody IgM Nonreactive (Nonreactive)
[2021-01-22] MEDS ORDERED: Vancomycin Oral Soln 125 MG/2.5 ML UDC PO SCH (06:00)
[2021-01-22] MEDS: *HR* Heparin 5,000 UNIT/ML VIAL SQ SCH ×3 (06:18→21:52)
[2021-01-22] MEDS: Ringers Solution, Lactated 1,000 ML IVC SCH ×4 (06:19→19:53)
[2021-01-22] MEDS ORDERED: Cefepime HCl 2,000 MG in Water for inj. (sterile) 20 ML IVP SCH (08:00)
[2021-01-22] MEDS ORDERED: Cefepime HCl 2,000 MG in 0.9 % Sodium Chloride Mini Bag 100 ML IVPB SCH (08:11)
[2021-01-22] MEDS ORDERED: Ringers Solution, Lactated 1,000 ML IVC ONE (08:12)
[2021-01-22] MEDS: MetroNIDAZOLE 500 MG/100 ML 500 MG/100 ML BAG IVPB SCH ×2 (09:00→17:06)
[2021-01-22] MEDS: Norepinephrine 4 MG/254 ML IV.SOLN IVC SCH (09:45)
[2021-01-22 10:09] LABS: Hematocrit 31.2 % (37.5-50.1); Hemoglobin 11.3 g/dL (12.9-16.9); Mean Corpuscular HGB Conc 36.2 g/dL (31.6-35.5); Mean Corpuscular Hemoglobin 36.6 pg (28.0-33.3); Mean Platelet Volume 10.8 fL (9.4-12.4); Platelet Count 107 K/mcL (140-400); Red Blood Count 3.09 M/mcL (4.19-5.50); Red Cell Distribution Width 13.7 % (11.5-14.5)
[2021-01-22] MEDS: Vancomycin Oral Soln 125 MG/2.5 ML UDC PO SCH ×4 (10:15→19:54)
[2021-01-22 10:16] LABS: INR 1.7; Prothrombin Time 19.2 Seconds (9.4-12.1)
[2021-01-22 10:42] LABS: Alanine Aminotransferase 69 Units/L (7-52); Albumin 1.9 g/dL (3.5-5.7); Albumin/Globulin Ratio 0.7 (1.1-2.2); Alkaline Phosphatase 211 Units/L (34-104); Aspartate Amino Transferase 347 Units/L (13-39); BUN/Creatinine Ratio 22 (6-26); Bilirubin,Total 1.1 mg/dL (0.3-1.0); Blood Urea Nitrogen 10 mg/dL (6-20); Carbon Dioxide 24 mEq/L (23-29); Chloride 107 mEq/L (98-107); Globulin 2.7 g/dL (2.4-3.5); Glucose 101 mg/dL (70-105); Magnesium 1.5 mg/dL (1.6-2.6); Osmolality,Calculated 287 (280-300); Phosphorous 3.8 mg/dL (2.7-4.5); Potassium 3.8 mEq/L (3.5-5.1); Sodium 139 mEq/L (136-145); Total Protein 4.6 g/dL (6.4-8.9); eGFR For African Americans > 60 (> 60); eGFR For Non-African Americans > 60 (> 60)
[2021-01-22 10:59] LABS: Folate 17.7 ng/mL (3.0-16.0)
[2021-01-22] MEDS ORDERED: Vancomycin 1,250 MG/262.5 ML IV.SOLN IVPB SCH (12:00)
[2021-01-22] MEDS ORDERED: Tigecycline 100 MG in 0.9 % Sodium Chloride 100 ML IVPB ONE (12:02)
[2021-01-22 19:50] LABS: Adenovirus F 40/41 PCR Not detected (Not detect); Astrovirus PCR Not detected (Not detect); Campylobacter by PCR Not detected (Not detect); Cryptosporidium by PCR Not detected (Not detect); Cyclospora cayetanensis PCR Not detected (Not detect); E. coli O157 by PCR Not detected (Not detect); Entamoeba histolytica PCR Not detected (Not detect); Enteroaggregative E.coli(EAEC) Not detected (Not detect); Enteropathogenic E.coli(EPEC) Not detected (Not detect); Enterotoxigenic E.coli (ETEC) Not detected (Not detect); Giardia lamblia PCR Not detected (Not detect); Norovirus GI/GII PCR Not detected (Not detect); Plesiomonas shigelloides PCR Not detected (Not detect); Rotavirus A PCR Not detected (Not detect); Salmonella PCR Not detected (Not detect); Sapovirus PCR Not detected (Not detect); Shig/EnteroinvasiveE coli EIEC Not detected (Not detect); Shigalike tox-prod E coli STEC Not detected (Not detect); Vibrio PCR Not detected (Not detect); Vibrio cholerae PCR Not detected (Not detect); Yersinia enterocolitica PCR Not detected (Not detect)
[2021-01-22 19:52] LABS: C.difficile Toxin A/B Gene PCR DETECTED (Not detect)
[2021-01-22] MEDS ORDERED: Cefepime HCl 2,000 MG in 0.9 % Sodium Chloride Mini Bag 100 ML IVPB ONE (23:48)
[2021-01-23] MEDS: Ringers Solution, Lactated 1,000 ML IVC SCH ×4 (00:47→17:07)
[2021-01-23] MEDS: MetroNIDAZOLE 500 MG/100 ML 500 MG/100 ML BAG IVPB SCH ×3 (00:47→17:06)
[2021-01-23] MEDS: Tigecycline 50 MG in 0.9 % Sodium Chloride Mini Bag 100 ML IVPB SCH ×2 (00:47→13:42)
[2021-01-23 03:33] LABS: Hemoglobin 10.8 g/dL (12.9-16.9); Mean Corpuscular HGB Conc 34.8 g/dL (31.6-35.5); Mean Corpuscular Hemoglobin 36.5 pg (28.0-33.3); Mean Corpuscular Volume 104.7 fL (83.0-100.0); Mean Platelet Volume 10.6 fL (9.4-12.4); Red Blood Count 2.96 M/mcL (4.19-5.50); Red Cell Distribution Width 14.1 % (11.5-14.5); White Blood Count 15.6 K/mcL (4.3-11.1)
[2021-01-23 03:35] LABS: Platelet Count 89 K/mcL (140-400)
[2021-01-23 04:09] LABS: Alanine Aminotransferase 202 Units/L (7-52); Albumin 1.8 g/dL (3.5-5.7); Albumin/Globulin Ratio 0.7 (1.1-2.2); Alkaline Phosphatase 233 Units/L (34-104); Aspartate Amino Transferase 1455 Units/L (13-39); BUN/Creatinine Ratio 29 (6-26); Bilirubin,Total 0.8 mg/dL (0.3-1.0); Blood Urea Nitrogen 12 mg/dL (6-20); Carbon Dioxide 25 mEq/L (23-29); Chloride 110 mEq/L (98-107); Globulin 2.7 g/dL (2.4-3.5); Glucose 66 mg/dL (70-105); Osmolality,Calculated 286 (280-300); Potassium 3.4 mEq/L (3.5-5.1); Sodium 139 mEq/L (136-145); Total Protein 4.5 g/dL (6.4-8.9); eGFR For African Americans > 60 (> 60); eGFR For Non-African Americans > 60 (> 60)
[2021-01-23] MEDS ORDERED: D5% in Water 1,000 ML IVC PRN (05:43)
[2021-01-23] MEDS ORDERED: Dextrose Gel 15 GM/37.5 ML TUBE PO PRN ×2 (05:43)
[2021-01-23] MEDS ORDERED: *HR* Dextrose 50 % in Water (Vial) 50 ML VIAL IVP PRN (05:43)
[2021-01-23] MEDS ORDERED: *HR* Dextrose 50 % in Water (Vial) 50 ML VIAL IVP ONE (06:00)
[2021-01-23] MEDS: *HR* Heparin 5,000 UNIT/ML VIAL SQ SCH ×3 (06:11→22:46)
[2021-01-23 07:17] LABS: INR 1.7; Prothrombin Time 19.5 Seconds (9.4-12.1)
[2021-01-23 07:19] LABS: Activated Partial Thrombo Time 34.4 Seconds (26.0-36.0)
[2021-01-23] MEDS: Norepinephrine 4 MG/254 ML IV.SOLN IVC SCH (08:40)
[2021-01-23 08:45] LABS: Magnesium 1.4 mg/dL (1.6-2.6)
[2021-01-23] MEDS: Vancomycin Oral Soln 125 MG/2.5 ML UDC PO SCH ×4 (08:46→20:03)
[2021-01-23] MEDS: Calcium Gluconate 1gm/50mL 1 GM/50 ML BAG IVPB SCH ×2 (08:48→11:17)
[2021-01-24] MEDS: Tigecycline 50 MG in 0.9 % Sodium Chloride Mini Bag 100 ML IVPB SCH ×2 (00:48→11:44)
[2021-01-24] MEDS: MetroNIDAZOLE 500 MG/100 ML 500 MG/100 ML BAG IVPB SCH ×3 (00:49→16:10)
[2021-01-24] MEDS: Ringers Solution, Lactated 1,000 ML IVC SCH ×5 (00:49→13:54)
[2021-01-24 05:24] LABS: Alanine Aminotransferase 213 Units/L (7-52); Albumin 1.7 g/dL (3.5-5.7); Albumin/Globulin Ratio 0.7 (1.1-2.2); Alkaline Phosphatase 273 Units/L (34-104); Aspartate Amino Transferase 852 Units/L (13-39); BUN/Creatinine Ratio 20 (6-26); Bilirubin,Total 0.9 mg/dL (0.3-1.0); Blood Urea Nitrogen 8 mg/dL (6-20); Calcium 6.8 mg/dL (8.6-10.3); Carbon Dioxide 25 mEq/L (23-29); Chloride 104 mEq/L (98-107); Globulin 2.4 g/dL (2.4-3.5); Glucose 71 mg/dL (70-105); Magnesium 1.6 mg/dL (1.6-2.6); Osmolality,Calculated 275 (280-300); Potassium 3.4 mEq/L (3.5-5.1); Sodium 134 mEq/L (136-145); Total Protein 4.1 g/dL (6.4-8.9); eGFR For African Americans > 60 (> 60); eGFR For Non-African Americans > 60 (> 60)
[2021-01-24 05:29] LABS: Hemoglobin 10.1 g/dL (12.9-16.9); Immature Platelets 4.6 % (1.1-6.1); Mean Corpuscular HGB Conc 33.7 g/dL (31.6-35.5); Mean Corpuscular Hemoglobin 34.9 pg (28.0-33.3); Mean Corpuscular Volume 103.8 fL (83.0-100.0); Mean Platelet Volume 10.7 fL (9.4-12.4); Red Blood Count 2.89 M/mcL (4.19-5.50); Red Cell Distribution Width 13.7 % (11.5-14.5); White Blood Count 9.3 K/mcL (4.3-11.1)
[2021-01-24] MEDS: *HR* Heparin 5,000 UNIT/ML VIAL SQ SCH ×3 (06:10→20:03)
[2021-01-24] MEDS: Norepinephrine 4 MG/254 ML IV.SOLN IVC SCH (07:35)
[2021-01-24] MEDS ORDERED: Potassium Chloride 40 MEQ, Lidocaine 1% 2 ML in 0.9 % Sodium Chloride 500 ML IVPB ONE (07:44)
[2021-01-24] MEDS ORDERED: Calcium Gluconate 1gm/50mL 1 GM/50 ML BAG IVPB SCH (09:00)
[2021-01-24] MEDS: Vancomycin Oral Soln 125 MG/2.5 ML UDC PO SCH ×4 (09:03→20:04)
[2021-01-24] MEDS: Calcium Gluconate 1gm/50mL 1 GM/50 ML BAG IVPB SCH ×2 (09:04→09:25)
[2021-01-24] MEDS ORDERED: Calcium Gluconate 1gm/50mL 1 GM/50 ML BAG IVPB ONE (11:57)
[2021-01-24] MEDS ORDERED: *HR* OxyCODONE Immed Rel 5 MG TABLET PO PRN (22:20)
[2021-01-25] MEDS: Ringers Solution, Lactated 1,000 ML IVC SCH ×3 (00:41→20:31)
[2021-01-25] MEDS: MetroNIDAZOLE 500 MG/100 ML 500 MG/100 ML BAG IVPB SCH ×4 (00:42→23:24)
[2021-01-25] MEDS: *HR* Heparin 5,000 UNIT/ML VIAL SQ SCH ×3 (06:03→20:32)
[2021-01-25] MEDS: *HR* HYDROcodone/Acet 10/325 mg TABLET PO PRN ×4 (06:05→20:32)
[2021-01-25 06:22] LABS: Alanine Aminotransferase 131 Units/L (7-52); Albumin 1.8 g/dL (3.5-5.7); Albumin/Globulin Ratio 0.8 (1.1-2.2); Alkaline Phosphatase 297 Units/L (34-104); Aspartate Amino Transferase 233 Units/L (13-39); BUN/Creatinine Ratio 10 (6-26); Bilirubin,Total 1.1 mg/dL (0.3-1.0); Blood Urea Nitrogen 3 mg/dL (6-20); Carbon Dioxide 26 mEq/L (23-29); Chloride 102 mEq/L (98-107); Globulin 2.4 g/dL (2.4-3.5); Glucose 113 mg/dL (70-105); Osmolality,Calculated 273 (280-300); Potassium 3.1 mEq/L (3.5-5.1); Sodium 133 mEq/L (136-145); Total Protein 4.2 g/dL (6.4-8.9); eGFR For African Americans > 60 (> 60); eGFR For Non-African Americans > 60 (> 60)
[2021-01-25] MEDS ORDERED: Potassium Chloride 40 MEQ, Lidocaine 1% 2 ML in 0.9 % Sodium Chloride 500 ML IVPB ONE (07:22)
[2021-01-25] MEDS: Vancomycin Oral Soln 125 MG/2.5 ML UDC PO SCH ×4 (09:55→20:31)
[2021-01-26] MEDS: *HR* HYDROcodone/Acet 10/325 mg TABLET PO PRN ×2 (01:03→16:49)
[2021-01-26] MEDS: *HR* Heparin 5,000 UNIT/ML VIAL SQ SCH (04:33)
[2021-01-26] MEDS ORDERED: QUEtiapine Fumarate 25 MG TABLET PO ONE (04:38)
[2021-01-26 06:01] LABS: Hematocrit 30.4 % (37.5-50.1); Hemoglobin 10.9 g/dL (12.9-16.9); Immature Platelets 6.2 % (1.1-6.1); Mean Corpuscular HGB Conc 35.9 g/dL (31.6-35.5); Mean Corpuscular Hemoglobin 35.6 pg (28.0-33.3); Mean Corpuscular Volume 99.3 fL (83.0-100.0); Mean Platelet Volume 10.6 fL (9.4-12.4); Red Blood Count 3.06 M/mcL (4.19-5.50); Red Cell Distribution Width 13.9 % (11.5-14.5); White Blood Count 8.5 K/mcL (4.3-11.1)
[2021-01-26 06:22] LABS: Alanine Aminotransferase 100 Units/L (7-52); Albumin 1.8 g/dL (3.5-5.7); Albumin/Globulin Ratio 0.6 (1.1-2.2); Alkaline Phosphatase 317 Units/L (34-104); Aspartate Amino Transferase 111 Units/L (13-39); Bilirubin,Direct 0.7 mg/dL (0.0-0.2); Bilirubin,Indirect 0.6 mg/dL (0.0-1.0); Bilirubin,Total 1.3 mg/dL (0.3-1.0); Blood Urea Nitrogen < 2 mg/dL (6-20); Calcium 7.4 mg/dL (8.6-10.3); Carbon Dioxide 28 mEq/L (23-29); Chloride 103 mEq/L (98-107); Globulin 2.8 g/dL (2.4-3.5); Glucose 111 mg/dL (70-105); Magnesium 1.4 mg/dL (1.6-2.6); Phosphorous 1.4 mg/dL (2.7-4.5); Sodium 136 mEq/L (136-145); Total Protein 4.6 g/dL (6.4-8.9); eGFR For African Americans > 60 (> 60); eGFR For Non-African Americans > 60 (> 60)
[2021-01-26] MEDS ORDERED: Potassium Phosphate 44 MEQ in 0.9 % Sodium Chloride 250 ML IVPB ONE (07:37)
[2021-01-26] MEDS ORDERED: *HR* Enoxaparin 40 MG/0.4 ML SYRINGE SQ ONE (07:40)
[2021-01-26] MEDS: Vancomycin Oral Soln 125 MG/2.5 ML UDC PO SCH ×4 (08:05→21:08)
[2021-01-26] MEDS: Ringers Solution, Lactated 1,000 ML IVC SCH (08:14)
[2021-01-26] MEDS: MetroNIDAZOLE 500 MG/100 ML 500 MG/100 ML BAG IVPB SCH (08:42)
[2021-01-26] MEDS: Vitamin B Complex/Vit C/Vit E 1 EACH TABLET PO SCH (08:42)
[2021-01-26] MEDS: Thiamine (B-1) 100 MG TABLET PO SCH (08:42)
[2021-01-26] MEDS ORDERED: Apixaban 5 MG TABLET PO SCH (09:00)
[2021-01-26] MEDS: Tiotropium 10 INH DOSE IH SCH (10:59)
[2021-01-26] MEDS ORDERED: Haloperidol Lactate 5 MG/ML VIAL IM ONE (11:51)
[2021-01-26] MEDS: QUEtiapine Fumarate 25 MG TABLET PO SCH ×2 (12:07→21:06)
[2021-01-26] MEDS: metroNIDAZOLE 500 MG TABLET PO SCH ×2 (14:57→21:08)
[2021-01-27 01:05] LABS: Hematocrit 29.6 % (37.5-50.1); Hemoglobin 10.5 g/dL (12.9-16.9); Immature Platelets 7.3 % (1.1-6.1); Mean Corpuscular HGB Conc 35.5 g/dL (31.6-35.5); Mean Corpuscular Hemoglobin 35.5 pg (28.0-33.3); Red Blood Count 2.96 M/mcL (4.19-5.50); Red Cell Distribution Width 14.2 % (11.5-14.5); White Blood Count 10.4 K/mcL (4.3-11.1)
[2021-01-27 01:29] LABS: Alanine Aminotransferase 85 Units/L (7-52); Albumin/Globulin Ratio 0.7 (1.1-2.2); Alkaline Phosphatase 340 Units/L (34-104); Aspartate Amino Transferase 86 Units/L (13-39); Bilirubin,Total 1.4 mg/dL (0.3-1.0); Blood Urea Nitrogen < 2 mg/dL (6-20); Calcium 7.5 mg/dL (8.6-10.3); Carbon Dioxide 25 mEq/L (23-29); Chloride 105 mEq/L (98-107); Globulin 2.9 g/dL (2.4-3.5); Glucose 160 mg/dL (70-105); Magnesium 1.7 mg/dL (1.6-2.6); Phosphorous 1.3 mg/dL (2.7-4.5); Potassium 3.3 mEq/L (3.5-5.1); Sodium 138 mEq/L (136-145); Total Protein 4.9 g/dL (6.4-8.9); eGFR For African Americans > 60 (> 60); eGFR For Non-African Americans > 60 (> 60)
[2021-01-27] MEDS: *HR* Enoxaparin 40 MG/0.4 ML SYRINGE SQ SCH ×2 (06:36→09:07)
[2021-01-27] MEDS ORDERED: Potassium Phosphate 44 MEQ in 0.9 % Sodium Chloride 250 ML IVPB ONE (07:37)
[2021-01-27] MEDS: Vancomycin Oral Soln 125 MG/2.5 ML UDC PO SCH ×4 (09:03→20:32)
[2021-01-27] MEDS: Thiamine (B-1) 100 MG TABLET PO SCH (09:04)
[2021-01-27] MEDS: QUEtiapine Fumarate 25 MG TABLET PO SCH ×2 (09:04→20:34)
[2021-01-27] MEDS: metroNIDAZOLE 500 MG TABLET PO SCH ×2 (09:04→13:05)
[2021-01-27] MEDS: Tiotropium 10 INH DOSE IH SCH (10:48)
[2021-01-27] MEDS: *HR* HYDROcodone/Acet 10/325 mg TABLET PO PRN ×2 (13:05→20:34)
[2021-01-27 20:03] LABS: Blood Urea Nitrogen < 2 mg/dL (6-20); Calcium 7.2 mg/dL (8.6-10.3); Carbon Dioxide 31 mEq/L (23-29); Chloride 105 mEq/L (98-107); Glucose 130 mg/dL (70-105); Magnesium 1.8 mg/dL (1.6-2.6); Phosphorous 4.1 mg/dL (2.7-4.5); Potassium 3.6 mEq/L (3.5-5.1); Sodium 140 mEq/L (136-145); eGFR For African Americans > 60 (> 60); eGFR For Non-African Americans > 60 (> 60)
[2021-01-28 02:43] LABS: Hematocrit 26.3 % (37.5-50.1); Hemoglobin 9.2 g/dL (12.9-16.9); Mean Corpuscular Hemoglobin 35.4 pg (28.0-33.3); Mean Corpuscular Volume 101.2 fL (83.0-100.0); Mean Platelet Volume 11.6 fL (9.4-12.4); Red Cell Distribution Width 15.3 % (11.5-14.5); White Blood Count 7.3 K/mcL (4.3-11.1)
[2021-01-28 02:45] LABS: Platelet Count 72 K/mcL (140-400)
[2021-01-28 03:02] LABS: Blood Urea Nitrogen < 2 mg/dL (6-20); Calcium 7.2 mg/dL (8.6-10.3); Carbon Dioxide 30 mEq/L (23-29); Chloride 106 mEq/L (98-107); Glucose 153 mg/dL (70-105); Magnesium 1.7 mg/dL (1.6-2.6); Phosphorous 3.7 mg/dL (2.7-4.5); Potassium 3.2 mEq/L (3.5-5.1); Sodium 140 mEq/L (136-145); eGFR For African Americans > 60 (> 60); eGFR For Non-African Americans > 60 (> 60)
[2021-01-28] MEDS: *HR* HYDROcodone/Acet 10/325 mg TABLET PO PRN ×2 (03:14→11:14)
[2021-01-28] MEDS: *HR* Enoxaparin 40 MG/0.4 ML SYRINGE SQ SCH (05:09)
[2021-01-28] MEDS: Tiotropium 10 INH DOSE IH SCH (07:56)
[2021-01-28] MEDS: Vancomycin Oral Soln 125 MG/2.5 ML UDC PO SCH ×3 (08:41→17:15)
[2021-01-28] MEDS: Vitamin B Complex/Vit C/Vit E 1 EACH TABLET PO SCH (08:42)
[2021-01-28] MEDS: Thiamine (B-1) 100 MG TABLET PO SCH (08:42)
[2021-01-28] MEDS: QUEtiapine Fumarate 25 MG TABLET PO SCH (08:42)
[2021-01-28 10:37] LABS: Alanine Aminotransferase 55 Units/L (7-52); Albumin 1.8 g/dL (3.5-5.7); Albumin/Globulin Ratio 0.7 (1.1-2.2); Alkaline Phosphatase 306 Units/L (34-104); Amylase 10 Units/L (29-103); Aspartate Amino Transferase 47 Units/L (13-39); Bilirubin,Direct 0.5 mg/dL (0.0-0.2); Bilirubin,Indirect 0.6 mg/dL (0.0-1.0); Bilirubin,Total 1.1 mg/dL (0.3-1.0); Globulin 2.5 g/dL (2.4-3.5); Total Protein 4.3 g/dL (6.4-8.9)
[2021-01-28 10:49] LABS: Lipase 3 Units/L (11-82)
[2021-01-28 12:03] VITALS: TEMP 98.5
[2021-01-28 16:35] VITALS: BP 131/82; PULSE 81; O2SAT 94
== END 2021-01-28 18:47 | disposition home or self-care (01) | DRG 871 ==
LOC: ICNU 21:47 → EMEROOARM 21:47 → SUATTDRO 01-22 04:24 → 2NNU 01-22 04:31 → ICNU 01-22 14:03 → 2ANU 01-23 14:58
PROVIDERS: ADMIT Family Medicine; ATTEND Internal Medicine

== ENCOUNTER 2021-02-20 11:39 | Inpatient (IN) ==
[2021-02-20] MEDS ORDERED: Thiamine (B-1) 200 MG in 0.9 % Sodium Chloride 50 ML IVPB ONE (12:23)
[2021-02-20] MEDS ORDERED: MVI, adult with vitamin K 10 ML, Folic Acid 1 MG, Thiamine (B-1) 200 MG in 0.9 % Sodi... IVC ONE (12:23)
[2021-02-20] MEDS ORDERED: Folic Acid 1 MG in 0.9 % Sodium Chloride 50 ML IVPB ONE (12:23)
[2021-02-20] MEDS ORDERED: *HR* LORazepam 2 MG/ML VIAL IVP PRN ×2 (12:25)
[2021-02-20] MEDS: *HR* LORazepam 2 MG/ML VIAL IVP PRN (13:05)
[2021-02-20 13:42] LABS: Bilirubin,Urine Small (Negative); Blood,Urine Negative (Negative); Clarity,Urine Clear (Clear); Color,Urine Yellow (Yellow); Glucose,Urine (UA) Normal (Normal); Ketones,Urine Trace mg/dL (Negative); Leukocyte Esterase,Urine Negative (Negative); Nitrite,Urine Negative (Negative); PH,Urine 6.5 pH Units (5.0-8.0); Protein,Urine Trace mg/dL (Neg-Trace); Specific Gravity,Urine 1.026 (1.010-1.025); Urobilinogen,Urine Normal (Normal)
[2021-02-20 13:51] LABS: VBG Ionized Calcium 1.07 mmol/L (1.15-1.35)
[2021-02-20 14:15] LABS: INR 2.9; Prothrombin Time 32.5 Seconds (9.4-12.1)
[2021-02-20 14:27] LABS: Alanine Aminotransferase 137 Units/L (7-52); Albumin/Globulin Ratio 0.6 (1.1-2.2); Alkaline Phosphatase 218 Units/L (34-104); Aspartate Amino Transferase 88 Units/L (13-39); BUN/Creatinine Ratio 49 (6-26); Bilirubin,Total 2.6 mg/dL (0.3-1.0); Blood Urea Nitrogen 28 mg/dL (6-20); Calcium 8.2 mg/dL (8.6-10.3); Carbon Dioxide 27 mEq/L (23-29); Chloride 103 mEq/L (98-107); Creatine Kinase 32 Units/L (30-223); Globulin 3.2 g/dL (2.4-3.5); Glucose 134 mg/dL (70-105); Osmolality,Calculated 301 (280-300); Phosphorous 3.2 mg/dL (2.7-4.5); Potassium 4.1 mEq/L (3.5-5.1); Sodium 142 mEq/L (136-145); Total Protein 5.2 g/dL (6.4-8.9); Troponin I < 0.03 ng/mL (< 0.04); eGFR For African Americans > 60 (> 60); eGFR For Non-African Americans > 60 (> 60)
[2021-02-20 14:30] LABS: Thyroid Stimulating Hormone 0.937 mcIU/mL (0.340-5.600)
[2021-02-20 14:39] LABS: Influenza A PCR Negative (Negative); Influenza B PCR Negative (Negative); Resp. Syncytial Virus PCR Negative (Negative)
[2021-02-20 14:43] LABS: SARS-CoV-2 by PCR (In House) Negative (Negative)
[2021-02-20 14:51] LABS: Eosinophils % 0.1 %; Hemoglobin 6.6 g/dL (12.9-16.9); Red Cell Distribution Width 16.6 % (11.5-14.5)
[2021-02-20 14:52] LABS: VBG HCO3 28 mEq/L (21-27); VBG PCO2 48 mmHg (41-51); VBG PH 7.37 pH Units (7.32-7.42); VBG PO2 184 mmHg (25-50)
[2021-02-20] MEDS ORDERED: 0.9 % Sodium Chloride 1,000 ML IVC ONE (14:52)
[2021-02-20 14:53] LABS: Basophils % 0.3 %; Hematocrit 21.1 % (37.5-50.1); Lymphocytes # 2.2 K/mcL (0.6-4.6); Lymphocytes % 13.8 %; Mean Corpuscular HGB Conc 31.3 g/dL (31.6-35.5); Mean Corpuscular Hemoglobin 37.9 pg (28.0-33.3); Mean Corpuscular Volume 121.3 fL (83.0-100.0); Mean Platelet Volume 11.3 fL (9.4-12.4); Monocytes # 1.2 K/mcL (0.0-1.3); Monocytes % 7.9 %; Nucleated Red Blood Cells 0.1 /100 WBC (0); Red Blood Count 1.74 M/mcL (4.19-5.50); Segmented Neutrophils % 76.9 %; White Blood Count 15.6 K/mcL (4.3-11.1)
[2021-02-20 14:55] LABS: Basophils # 0.1 K/mcL (0.0-0.2); Platelet Count 87 K/mcL (140-400)
[2021-02-20 15:24] LABS: Amphetamine Screen,Urine Negative ng/mL (Cutoff=1000); Barbiturate Screen,Urine Negative ng/mL (Cutoff=200); Benzodiazepines Screen,Urine Negative ng/mL (Cutoff=200); Cannabinoid Screen,Urine Negative ng/mL (Cutoff = 50); Cocaine Screen,Urine Negative ng/mL (Cutoff= 300); Opiate Screen,Urine Positive ng/mL (Cutoff=300); Phencyclidine Screen,Urine Negative ng/mL (Cutoff=25)
[2021-02-20 15:30] LABS: Anisocytosis 1+ (Not Present); Macrocytosis Present (Not Present); Platelet Estimate Slight Decrease (Normal)
[2021-02-20 16:08] LABS: Ethanol < 10 mg/dL (Less than 10)
[2021-02-20] MEDS ORDERED: 0.9 % Sodium Chloride 1,000 ML IV ONE (16:49)
[2021-02-20] MEDS ORDERED: Octreotide 50 MCG/ML INJ IVP ONE (17:44)
[2021-02-20] MEDS ORDERED: Pantoprazole 80 MG in 0.9 % Sodium Chloride 50 ML IVPB ONE (17:46)
[2021-02-20] MEDS ORDERED: cefTRIAXone 1,000 MG in Water for inj. (sterile) 10 ML IVP ONE (17:46)
[2021-02-20 18:49] LABS: Acetaminophen < 10 mcg/mL (10-20); Salicylate < 2.5 mg/dL (15.0-30.0)
[2021-02-20] MEDS: Norepinephrine 4 MG/254 ML IV.SOLN IVC SCH (18:59)
[2021-02-20 19:15] LABS: Folate > 22.3 ng/mL (3.0-16.0); Vitamin B12 1172 pg/mL (250-1100)
[2021-02-20] MEDS ORDERED: 0.9 % Sodium Chloride 250 ML ONE (19:26)
[2021-02-20] MEDS ORDERED: Naloxone 0.4 MG/ML INJ IVP PRN (21:39)
[2021-02-20] MEDS ORDERED: Vitamin B Complex/Vit C/Vit E 1 EACH TABLET PO SCH (22:00)
[2021-02-20] MEDS: Octreotide 400 MCG in 0.9 % Sodium Chloride 100 ML IVC SCH (22:48)
[2021-02-20] MEDS ORDERED: Ringers Solution, Lactated 1,000 ML IVC ONE (23:02)
[2021-02-20] MEDS: Pantoprazole 40 MG in 0.9 % Sodium Chloride Mini Bag 100 ML IVC SCH ×2 (23:11)
[2021-02-20] MEDS ORDERED: Ringers Solution, Lactated 1,000 ML ONE (23:15)
[2021-02-21 02:16] LABS: Adenovirus F 40/41 PCR Not detected (Not detect); Astrovirus PCR Not detected (Not detect); C.difficile Toxin A/B Gene PCR Not detected (Not detect); Campylobacter by PCR Not detected (Not detect); Cryptosporidium by PCR Not detected (Not detect); Cyclospora cayetanensis PCR Not detected (Not detect); E. coli O157 by PCR Not detected (Not detect); Entamoeba histolytica PCR Not detected (Not detect); Enteroaggregative E.coli(EAEC) Not detected (Not detect); Enteropathogenic E.coli(EPEC) Not detected (Not detect); Enterotoxigenic E.coli (ETEC) Not detected (Not detect); Giardia lamblia PCR Not detected (Not detect); Norovirus GI/GII PCR Not detected (Not detect); Plesiomonas shigelloides PCR Not detected (Not detect); Rotavirus A PCR Not detected (Not detect); Salmonella PCR Not detected (Not detect); Sapovirus PCR Not detected (Not detect); Shig/EnteroinvasiveE coli EIEC Not detected (Not detect); Shigalike tox-prod E coli STEC Not detected (Not detect); Vibrio PCR Not detected (Not detect); Vibrio cholerae PCR Not detected (Not detect); Yersinia enterocolitica PCR Not detected (Not detect)
[2021-02-21] MEDS ORDERED: Ringers Solution, Lactated 1,000 ML IVC ONE (02:56)
[2021-02-21] MEDS: Ringers Solution, Lactated 1,000 ML IVC SCH ×4 (04:14→23:40)
[2021-02-21] MEDS: Pantoprazole 40 MG in 0.9 % Sodium Chloride Mini Bag 100 ML IVC SCH ×4 (04:15→21:13)
[2021-02-21] MEDS: *HR* LORazepam 2 MG/ML VIAL IVP PRN (09:43)
[2021-02-21] MEDS ORDERED: Lactulose Oral Soln 20 GM/30 ML UDC PO SCH (09:45)
[2021-02-21] MEDS ORDERED: Lidocaine -MPF 1% 5 ML AMPUL INFILT ONE (09:49)
[2021-02-21 09:55] LABS: ABG Base Excess 5 mEq/L (-2 to 3); ABG HCO3 28 mEq/L (21-27); ABG Oxygen Saturation 95 % (95-98); ABG PCO2 34 mmHg (35-45); ABG PH 7.52 pH Units (7.32-7.45); ABG PO2 65 mmHg (85-104); ABG TCO2 29 mEq/L (20-26)
[2021-02-21] MEDS: cefTRIAXone 1,000 MG in Water for inj. (sterile) 10 ML IVP SCH (10:51)
[2021-02-21] MEDS: Dexmedetomidine HCl 400 MCG/100 ML MLS IVC SCH (11:03)
[2021-02-21] MEDS ORDERED: 0.9 % Sodium Chloride 250 ML ONE ×2 (11:37→19:34)
[2021-02-21 11:58] LABS: BUN/Creatinine Ratio 72 (6-26); Blood Urea Nitrogen 38 mg/dL (6-20); Calcium 7.5 mg/dL (8.6-10.3); Carbon Dioxide 29 mEq/L (23-29); Chloride 112 mEq/L (98-107); Glucose 139 mg/dL (70-105); Osmolality,Calculated 311 (280-300); Potassium 3.7 mEq/L (3.5-5.1); Sodium 145 mEq/L (136-145); eGFR For African Americans > 60 (> 60); eGFR For Non-African Americans > 60 (> 60)
[2021-02-21] MEDS: Thiamine (B-1) 100 MG TABLET PO SCH (13:39)
[2021-02-21] MEDS: Octreotide 400 MCG in 0.9 % Sodium Chloride 100 ML IVC SCH ×2 (14:08→15:33)
[2021-02-21 15:19] LABS: Basophils % 0.2 %; Eosinophils % 1.2 %; Hematocrit 17.1 % (37.5-50.1); Mean Corpuscular HGB Conc 32.2 g/dL (31.6-35.5); Mean Corpuscular Hemoglobin 36.2 pg (28.0-33.3); Mean Corpuscular Volume 112.5 fL (83.0-100.0); Red Blood Count 1.52 M/mcL (4.19-5.50)
[2021-02-21 15:21] LABS: Eosinophils # 0.1 K/mcL (0.0-0.6); Immature Granulocytes % 1.3 % (0-4); Immature Platelets 6.3 % (1.1-6.1); Lymphocytes # 2.2 K/mcL (0.6-4.6); Lymphocytes % 21.9 %; Mean Platelet Volume 11.5 fL (9.4-12.4); Monocytes % 9.5 %; Neutrophils # 6.7 K/mcL (1.6-8.9); Nucleated Red Blood Cells 0.2 /100 WBC (0); Red Cell Distribution Width 21.8 % (11.5-14.5); Segmented Neutrophils % 65.9 %; White Blood Count 10.1 K/mcL (4.3-11.1)
[2021-02-21 15:24] LABS: Platelet Count 53 K/mcL (140-400)
[2021-02-21 15:29] LABS: Hemoglobin 5.5 g/dL (12.9-16.9)
[2021-02-21] MEDS: SODIUM CHLORIDE IRRIGATION RC SCH (15:33)
[2021-02-21] MEDS: LACTULOSE RC SCH (15:33)
[2021-02-21 18:16] LABS: Anisocytosis 2+ (Not Present); Hypochromasia Present (Not Present); Platelet Estimate Marked Decrease (Normal)
[2021-02-21] MEDS: Norepinephrine 4 MG/254 ML IV.SOLN IVC SCH (19:40)
[2021-02-21] MEDS ORDERED: Furosemide 20 MG/2 ML VIAL IVP ONE (20:41)
[2021-02-21] MEDS: Artificial Tears SOLN 15 ML BOTTLE BOTH EYES SCH (21:13)
[2021-02-22] LABS: Mean Corpuscular HGB Conc 33.1 g/dL (31.6-35.5); Mean Corpuscular Hemoglobin 34.1 pg (28.0-33.3); Mean Platelet Volume 11.6 fL (9.4-12.4); Red Blood Count 2.52 M/mcL (4.19-5.50); Red Cell Distribution Width 20.8 % (11.5-14.5); White Blood Count 12.6 K/mcL (4.3-11.1)
[2021-02-22 00:05] LABS: Hemoglobin 8.6 g/dL (12.9-16.9); Mean Corpuscular Volume 103.2 fL (83.0-100.0); Platelet Count 42 K/mcL (140-400)
[2021-02-22 00:36] LABS: INR 1.4; Prothrombin Time 15.1 Seconds (9.4-12.1)
[2021-02-22] MEDS: LACTULOSE RC SCH ×2 (00:39→08:45)
[2021-02-22] MEDS: SODIUM CHLORIDE IRRIGATION RC SCH ×2 (00:39→08:45)
[2021-02-22] MEDS: Octreotide 400 MCG in 0.9 % Sodium Chloride 100 ML IVC SCH ×2 (00:39→15:30)
[2021-02-22] MEDS: Dexmedetomidine HCl 400 MCG/100 ML MLS IVC SCH (00:40)
[2021-02-22] MEDS: Ringers Solution, Lactated 1,000 ML IVC SCH (00:40)
[2021-02-22] MEDS: Pantoprazole 40 MG in 0.9 % Sodium Chloride Mini Bag 100 ML IVC SCH ×4 (02:31→17:59)
[2021-02-22 04:20] LABS: VBG Ionized Calcium 1.23 mmol/L (1.15-1.35)
[2021-02-22 04:24] LABS: Mean Corpuscular HGB Conc 33.3 g/dL (31.6-35.5); Nucleated Red Blood Cells 0.4 /100 WBC (0)
[2021-02-22 04:26] LABS: Basophils # 0.1 K/mcL (0.0-0.2); Basophils % 0.4 %; Eosinophils # 0.1 K/mcL (0.0-0.6); Eosinophils % 1.1 %; Immature Granulocytes % 1.2 % (0-4); Immature Platelets 7.9 % (1.1-6.1); Lymphocytes # 1.6 K/mcL (0.6-4.6); Lymphocytes % 12.6 %; Mean Corpuscular Hemoglobin 34.4 pg (28.0-33.3); Mean Corpuscular Volume 103.1 fL (83.0-100.0); Mean Platelet Volume 11.3 fL (9.4-12.4); Monocytes # 0.9 K/mcL (0.0-1.3); Monocytes % 7.1 %; Red Blood Count 2.62 M/mcL (4.19-5.50); Red Cell Distribution Width 21.3 % (11.5-14.5); Segmented Neutrophils % 77.6 %; White Blood Count 12.3 K/mcL (4.3-11.1)
[2021-02-22 04:28] LABS: Neutrophils # 9.5 K/mcL (1.6-8.9); Platelet Count 45 K/mcL (140-400)
[2021-02-22 04:39] LABS: INR 1.3; Prothrombin Time 14.6 Seconds (9.4-12.1)
[2021-02-22 04:52] LABS: Alanine Aminotransferase 62 Units/L (7-52); Albumin/Globulin Ratio 0.7 (1.1-2.2); Alkaline Phosphatase 151 Units/L (34-104); Aspartate Amino Transferase 41 Units/L (13-39); BUN/Creatinine Ratio 57 (6-26); Bilirubin,Total 2.7 mg/dL (0.3-1.0); Blood Urea Nitrogen 33 mg/dL (6-20); Carbon Dioxide 28 mEq/L (23-29); Chloride 114 mEq/L (98-107); Globulin 2.7 g/dL (2.4-3.5); Glucose 131 mg/dL (70-105); Magnesium 1.7 mg/dL (1.6-2.6); Osmolality,Calculated 309 (280-300); Phosphorous 2.1 mg/dL (2.7-4.5); Potassium 3.2 mEq/L (3.5-5.1); Sodium 145 mEq/L (136-145); Total Protein 4.7 g/dL (6.4-8.9); eGFR For African Americans > 60 (> 60); eGFR For Non-African Americans > 60 (> 60)
[2021-02-22 04:58] LABS: Platelet Estimate Decreased (Normal); Reactive Lymphocytes Present (Not Present)
[2021-02-22] MEDS ORDERED: Potassium Phosphate 44 MEQ in 0.9 % Sodium Chloride 250 ML IVPB ONE (05:25)
[2021-02-22] MEDS: Artificial Tears SOLN 15 ML BOTTLE BOTH EYES SCH ×4 (08:45→23:02)
[2021-02-22] MEDS: cefTRIAXone 1,000 MG in Water for inj. (sterile) 10 ML IVP SCH (08:50)
[2021-02-22] MEDS: Thiamine (B-1) 100 MG TABLET PO SCH (12:11)
[2021-02-22] MEDS ORDERED: *HR* LORazepam 2 MG/ML VIAL IVP PRN ×2 (12:14→13:02)
[2021-02-22] MEDS ORDERED: Naloxone 0.4 MG/ML INJ IVP PRN (12:16)
[2021-02-22] MEDS ORDERED: *HR* Propofol 200 MG/20 ML VIAL IVP ONE (13:20)
[2021-02-22 15:02] LABS: Hematocrit 26.3 % (37.5-50.1)
[2021-02-22 15:04] LABS: Hemoglobin 8.7 g/dL (12.9-16.9)
[2021-02-22] MEDS ORDERED: LACTULOSE RC SCH (16:00)
[2021-02-22] MEDS ORDERED: SODIUM CHLORIDE IRRIGATION RC SCH (16:00)
[2021-02-22] MEDS ORDERED: 0.9 % Sodium Chloride Mini Bag 100 ML ONE (23:57)
[2021-02-23] MEDS: Vitamin B Complex/Vit C/Vit E 1 EACH TABLET PO SCH (00:09)
[2021-02-23] MEDS: Octreotide 400 MCG in 0.9 % Sodium Chloride 100 ML IVC SCH ×3 (00:09→13:05)
[2021-02-23] MEDS: Pantoprazole 40 MG in 0.9 % Sodium Chloride Mini Bag 100 ML IVC SCH ×4 (00:23→05:57)
[2021-02-23] MEDS: SODIUM CHLORIDE IRRIGATION RC SCH ×4 (04:10→23:11)
[2021-02-23] MEDS: LACTULOSE RC SCH ×4 (04:10→23:11)
[2021-02-23 07:08] LABS: VBG Ionized Calcium 1.13 mmol/L (1.15-1.35)
[2021-02-23 07:24] LABS: Red Cell Distribution Width 21.6 % (11.5-14.5)
[2021-02-23 07:26] LABS: Basophils % 0.2 %; Eosinophils # 0.1 K/mcL (0.0-0.6); Eosinophils % 1.3 %; Hematocrit 28.1 % (37.5-50.1); Hemoglobin 9.3 g/dL (12.9-16.9); Immature Granulocytes % 0.8 % (0-4); Immature Platelets 10.1 % (1.1-6.1); Lymphocytes # 2.1 K/mcL (0.6-4.6); Lymphocytes % 23.5 %; Mean Corpuscular HGB Conc 33.1 g/dL (31.6-35.5); Mean Corpuscular Hemoglobin 34.7 pg (28.0-33.3); Mean Corpuscular Volume 104.9 fL (83.0-100.0); Mean Platelet Volume 12.3 fL (9.4-12.4); Monocytes # 0.9 K/mcL (0.0-1.3); Monocytes % 10.2 %; Neutrophils # 5.8 K/mcL (1.6-8.9); Nucleated Red Blood Cells 0.3 /100 WBC (0); Red Blood Count 2.68 M/mcL (4.19-5.50); White Blood Count 9.1 K/mcL (4.3-11.1)
[2021-02-23 07:29] LABS: Platelet Count 43 K/mcL (140-400)
[2021-02-23 07:30] LABS: Alanine Aminotransferase 56 Units/L (7-52); Albumin/Globulin Ratio 0.7 (1.1-2.2); Alkaline Phosphatase 134 Units/L (34-104); Aspartate Amino Transferase 45 Units/L (13-39); BUN/Creatinine Ratio 52 (6-26); Bilirubin,Total 1.9 mg/dL (0.3-1.0); Blood Urea Nitrogen 28 mg/dL (6-20); Calcium 8.1 mg/dL (8.6-10.3); Carbon Dioxide 22 mEq/L (23-29); Chloride 115 mEq/L (98-107); Globulin 2.7 g/dL (2.4-3.5); Glucose 80 mg/dL (70-105); Magnesium 1.8 mg/dL (1.6-2.6); Osmolality,Calculated 308 (280-300); Phosphorous 3.3 mg/dL (2.7-4.5); Potassium 3.3 mEq/L (3.5-5.1); Sodium 147 mEq/L (136-145); Total Protein 4.7 g/dL (6.4-8.9); eGFR For African Americans > 60 (> 60); eGFR For Non-African Americans > 60 (> 60)
[2021-02-23] MEDS: cefTRIAXone 1,000 MG in Water for inj. (sterile) 10 ML IVP SCH (10:35)
[2021-02-23] MEDS: Thiamine (B-1) 100 MG TABLET PO SCH (10:36)
[2021-02-23] MEDS: Artificial Tears SOLN 15 ML BOTTLE BOTH EYES SCH ×4 (10:46→23:10)
[2021-02-23] MEDS: Pantoprazole 40 MG VIAL IVP SCH (23:07)
[2021-02-24 01:27] LABS: Eosinophils % 3.4 %; Hemoglobin 8.8 g/dL (12.9-16.9); Immature Granulocytes % 0.7 % (0-4); Red Cell Distribution Width 21.2 % (11.5-14.5)
[2021-02-24 01:29] LABS: Basophils % 0.4 %; Eosinophils # 0.3 K/mcL (0.0-0.6); Hematocrit 27.4 % (37.5-50.1); Immature Platelets 9.4 % (1.1-6.1); Lymphocytes # 2.8 K/mcL (0.6-4.6); Lymphocytes % 34.1 %; Mean Corpuscular HGB Conc 32.1 g/dL (31.6-35.5); Mean Corpuscular Hemoglobin 34.1 pg (28.0-33.3); Mean Corpuscular Volume 106.2 fL (83.0-100.0); Mean Platelet Volume 12.3 fL (9.4-12.4); Monocytes # 0.9 K/mcL (0.0-1.3); Monocytes % 11.1 %; Neutrophils # 4.1 K/mcL (1.6-8.9); Nucleated Red Blood Cells 0.4 /100 WBC (0); Red Blood Count 2.58 M/mcL (4.19-5.50); Segmented Neutrophils % 50.3 %; White Blood Count 8.2 K/mcL (4.3-11.1)
[2021-02-24] MEDS: Octreotide 400 MCG in 0.9 % Sodium Chloride 100 ML IVC SCH ×2 (01:33→06:55)
[2021-02-24 01:53] LABS: Alanine Aminotransferase 47 Units/L (7-52); Albumin 1.7 g/dL (3.5-5.7); Albumin/Globulin Ratio 0.6 (1.1-2.2); Alkaline Phosphatase 127 Units/L (34-104); Aspartate Amino Transferase 38 Units/L (13-39); BUN/Creatinine Ratio 40 (6-26); Bilirubin,Total 1.3 mg/dL (0.3-1.0); Blood Urea Nitrogen 21 mg/dL (6-20); Calcium 7.7 mg/dL (8.6-10.3); Carbon Dioxide 20 mEq/L (23-29); Chloride 113 mEq/L (98-107); Globulin 2.8 g/dL (2.4-3.5); Glucose 106 mg/dL (70-105); Osmolality,Calculated 295 (280-300); Potassium 2.8 mEq/L (3.5-5.1); Sodium 141 mEq/L (136-145); Total Protein 4.5 g/dL (6.4-8.9); eGFR For African Americans > 60 (> 60); eGFR For Non-African Americans > 60 (> 60)
[2021-02-24 02:06] LABS: Platelet Count 42 K/mcL (140-400)
[2021-02-24 02:30] LABS: Anisocytosis 1+ (Not Present); Platelet Estimate Decreased (Normal); Reactive Lymphocytes Present (Not Present)
[2021-02-24] MEDS: Thiamine (B-1) 100 MG TABLET PO SCH (08:54)
[2021-02-24] MEDS: Pantoprazole 40 MG VIAL IVP SCH (08:56)
[2021-02-24] MEDS: cefTRIAXone 1,000 MG in Water for inj. (sterile) 10 ML IVP SCH (08:57)
[2021-02-24] MEDS: Artificial Tears SOLN 15 ML BOTTLE BOTH EYES SCH ×4 (09:06→22:12)
[2021-02-24] MEDS: LACTULOSE RC SCH (10:12)
[2021-02-24] MEDS: SODIUM CHLORIDE IRRIGATION RC SCH (10:12)
[2021-02-24] MEDS: Lactulose Oral Soln 20 GM/30 ML UDC PO SCH (21:24)
[2021-02-24] MEDS: Vitamin B Complex/Vit C/Vit E 1 EACH TABLET PO SCH (21:24)
[2021-02-25 05:02] LABS: Mean Corpuscular HGB Conc 32.6 g/dL (31.6-35.5)
[2021-02-25 05:04] LABS: Basophils % 0.6 %; Eosinophils # 0.3 K/mcL (0.0-0.6); Eosinophils % 3.5 %; Hematocrit 28.2 % (37.5-50.1); Hemoglobin 9.2 g/dL (12.9-16.9); Immature Platelets 8.5 % (1.1-6.1); Lymphocytes # 2.2 K/mcL (0.6-4.6); Lymphocytes % 30.3 %; Mean Corpuscular Hemoglobin 34.2 pg (28.0-33.3); Mean Corpuscular Volume 104.8 fL (83.0-100.0); Mean Platelet Volume 11.9 fL (9.4-12.4); Monocytes # 0.9 K/mcL (0.0-1.3); Monocytes % 12.1 %; Nucleated Red Blood Cells 0.3 /100 WBC (0); Red Blood Count 2.69 M/mcL (4.19-5.50); Red Cell Distribution Width 19.9 % (11.5-14.5); Segmented Neutrophils % 52.5 %; White Blood Count 7.1 K/mcL (4.3-11.1)
[2021-02-25 05:17] LABS: BUN/Creatinine Ratio 23 (6-26); Blood Urea Nitrogen 12 mg/dL (6-20); Calcium 7.5 mg/dL (8.6-10.3); Carbon Dioxide 22 mEq/L (23-29); Chloride 111 mEq/L (98-107); Glucose 128 mg/dL (70-105); Magnesium 1.7 mg/dL (1.6-2.6); Osmolality,Calculated 289 (280-300); Phosphorous 2.8 mg/dL (2.7-4.5); Potassium 3.3 mEq/L (3.5-5.1); Sodium 139 mEq/L (136-145); eGFR For African Americans > 60 (> 60); eGFR For Non-African Americans > 60 (> 60)
[2021-02-25 05:25] LABS: Neutrophils # 3.7 K/mcL (1.6-8.9); Platelet Count 46 K/mcL (140-400)
[2021-02-25] MEDS: Pantoprazole 40 MG VIAL IVP SCH (09:12)
[2021-02-25] MEDS: Artificial Tears SOLN 15 ML BOTTLE BOTH EYES SCH ×4 (09:12→21:09)
[2021-02-25] MEDS: Cholestyramine 4 GM POWD.PACK PO SCH ×3 (09:12→16:36)
[2021-02-25] MEDS: Thiamine (B-1) 100 MG TABLET PO SCH (09:12)
[2021-02-25] MEDS: Lactulose Oral Soln 20 GM/30 ML UDC PO SCH ×2 (09:12→21:02)
[2021-02-26 03:52] LABS: Basophils % 0.6 %; Immature Granulocytes % 0.5 % (0-4); Mean Corpuscular Volume 107.4 fL (83.0-100.0); Red Cell Distribution Width 19.9 % (11.5-14.5)
[2021-02-26 03:54] LABS: Basophils # 0.1 K/mcL (0.0-0.2); Eosinophils # 0.3 K/mcL (0.0-0.6); Eosinophils % 3.1 %; Hematocrit 29.2 % (37.5-50.1); Hemoglobin 9.4 g/dL (12.9-16.9); Immature Platelets 9.5 % (1.1-6.1); Lymphocytes # 2.5 K/mcL (0.6-4.6); Lymphocytes % 30.5 %; Mean Corpuscular HGB Conc 32.2 g/dL (31.6-35.5); Mean Corpuscular Hemoglobin 34.6 pg (28.0-33.3); Mean Platelet Volume 12.2 fL (9.4-12.4); Monocytes # 1.2 K/mcL (0.0-1.3); Neutrophils # 4.1 K/mcL (1.6-8.9); Nucleated Red Blood Cells 0.2 /100 WBC (0); Red Blood Count 2.72 M/mcL (4.19-5.50); Segmented Neutrophils % 50.3 %; White Blood Count 8.1 K/mcL (4.3-11.1)
[2021-02-26 04:01] LABS: Platelet Count 53 K/mcL (140-400)
[2021-02-26 04:10] LABS: BUN/Creatinine Ratio 14 (6-26); Blood Urea Nitrogen 7 mg/dL (6-20); Calcium 7.8 mg/dL (8.6-10.3); Carbon Dioxide 25 mEq/L (23-29); Chloride 109 mEq/L (98-107); Glucose 122 mg/dL (70-105); Magnesium 1.7 mg/dL (1.6-2.6); Osmolality,Calculated 283 (280-300); Phosphorous 2.4 mg/dL (2.7-4.5); Sodium 137 mEq/L (136-145); eGFR For African Americans > 60 (> 60); eGFR For Non-African Americans > 60 (> 60)
[2021-02-26] MEDS: Cholestyramine 4 GM POWD.PACK PO SCH ×3 (08:35→14:45)
[2021-02-26] MEDS: Thiamine (B-1) 100 MG TABLET PO SCH (08:35)
[2021-02-26] MEDS: Lactulose Oral Soln 20 GM/30 ML UDC PO SCH ×2 (08:35→22:00)
[2021-02-26] MEDS: Artificial Tears SOLN 15 ML BOTTLE BOTH EYES SCH ×4 (11:13→22:03)
[2021-02-26] MEDS: Vitamin B Complex/Vit C/Vit E 1 EACH TABLET PO SCH (22:00)
[2021-02-27 02:02] LABS: Basophils % 0.5 %; Hemoglobin 9.2 g/dL (12.9-16.9); Mean Platelet Volume 11.2 fL (9.4-12.4)
[2021-02-27 02:04] LABS: Basophils # 0.1 K/mcL (0.0-0.2); Eosinophils # 0.3 K/mcL (0.0-0.6); Eosinophils % 2.7 %; Hematocrit 28.9 % (37.5-50.1); Immature Granulocytes % 0.4 % (0-4); Immature Platelets 7.3 % (1.1-6.1); Lymphocytes # 2.3 K/mcL (0.6-4.6); Lymphocytes % 22.7 %; Mean Corpuscular HGB Conc 31.8 g/dL (31.6-35.5); Mean Corpuscular Hemoglobin 34.2 pg (28.0-33.3); Mean Corpuscular Volume 107.4 fL (83.0-100.0); Monocytes # 1.4 K/mcL (0.0-1.3); Monocytes % 13.2 %; Neutrophils # 6.2 K/mcL (1.6-8.9); Red Blood Count 2.69 M/mcL (4.19-5.50); Red Cell Distribution Width 19.8 % (11.5-14.5); Segmented Neutrophils % 60.5 %; White Blood Count 10.3 K/mcL (4.3-11.1)
[2021-02-27 02:11] LABS: BUN/Creatinine Ratio 11 (6-26); Blood Urea Nitrogen 6 mg/dL (6-20); Calcium 7.7 mg/dL (8.6-10.3); Carbon Dioxide 25 mEq/L (23-29); Chloride 108 mEq/L (98-107); Glucose 135 mg/dL (70-105); Magnesium 1.7 mg/dL (1.6-2.6); Osmolality,Calculated 282 (280-300); Phosphorous 2.9 mg/dL (2.7-4.5); Potassium 3.8 mEq/L (3.5-5.1); Sodium 136 mEq/L (136-145); eGFR For African Americans > 60 (> 60); eGFR For Non-African Americans > 60 (> 60)
[2021-02-27 02:14] LABS: Platelet Count 61 K/mcL (140-400)
[2021-02-27] MEDS: Cholestyramine 4 GM POWD.PACK PO SCH ×3 (08:36→17:06)
[2021-02-27] MEDS: Artificial Tears SOLN 15 ML BOTTLE BOTH EYES SCH ×3 (08:36→17:06)
[2021-02-27] MEDS: Thiamine (B-1) 100 MG TABLET PO SCH (08:36)
[2021-02-27] MEDS: Lactulose Oral Soln 20 GM/30 ML UDC PO SCH ×2 (08:36→17:06)
[2021-02-27 12:33] VITALS: BP 107/74; PULSE 91; TEMP 98; O2SAT 91
[2021-02-27] MEDS ORDERED: *HR* OxyCODONE/APAP 5/325 TABLET PO ONE (16:46)
== END 2021-02-27 17:56 | DRG 871 ==
LOC: EMEROOARM 11:39 → INTOOBSV 21:14 → SUATTDRO 21:14 → ICNU 21:14 → SUATTDRO 02-21 12:23 → 2ANU 02-22 15:49
PROVIDERS: ADMIT Family Medicine; ATTEND Internal Medicine

== ENCOUNTER 2021-03-05 16:08 | Inpatient (IN) ==
[2021-03-05] MEDS ORDERED: Naloxone 0.4 MG/ML INJ IVP PRN (20:37)
[2021-03-05] MEDS ORDERED: Melatonin 3 MG TABLET PO PRN (20:37)
[2021-03-05] MEDS ORDERED: Acetaminophen 325 MG TABLET PO PRN (20:37)
[2021-03-05] MEDS ORDERED: *HR* HYDROcodone/Acet 5/325 mg TABLET PO PRN (20:37)
[2021-03-05] MEDS ORDERED: Ondansetron 4 MG/2 ML VIAL IVP PRN (20:37)
[2021-03-05] MEDS ORDERED: *HR* OxyCODONE Immed Rel 5 MG TABLET PO PRN (20:37)
[2021-03-05] MEDS ORDERED: *HR* Promethazine 25 MG/ML VIAL IM PRN (20:37)
[2021-03-05] MEDS ORDERED: Ringers Solution, Lactated 1,000 ML IVC ONE (20:41)
[2021-03-05] MEDS ORDERED: *HR* HYDROmorphone (PF) 1 MG/ML SYRINGE IVP ONE (21:24)
[2021-03-05 23:37] LABS: Adenovirus F 40/41 PCR Not detected (Not detect); Astrovirus PCR Not detected (Not detect); Campylobacter by PCR Not detected (Not detect); Cryptosporidium by PCR Not detected (Not detect); Cyclospora cayetanensis PCR Not detected (Not detect); E. coli O157 by PCR Not detected (Not detect); Entamoeba histolytica PCR Not detected (Not detect); Enteroaggregative E.coli(EAEC) Not detected (Not detect); Enteropathogenic E.coli(EPEC) Not detected (Not detect); Enterotoxigenic E.coli (ETEC) Not detected (Not detect); Giardia lamblia PCR Not detected (Not detect); Norovirus GI/GII PCR Not detected (Not detect); Plesiomonas shigelloides PCR Not detected (Not detect); Rotavirus A PCR Not detected (Not detect); Salmonella PCR Not detected (Not detect); Sapovirus PCR Not detected (Not detect); Shig/EnteroinvasiveE coli EIEC Not detected (Not detect); Shigalike tox-prod E coli STEC Not detected (Not detect); Vibrio PCR Not detected (Not detect); Vibrio cholerae PCR Not detected (Not detect); Yersinia enterocolitica PCR Not detected (Not detect)
[2021-03-05 23:39] LABS: C.difficile Toxin A/B Gene PCR DETECTED (Not detect)
[2021-03-05] MEDS ORDERED: Vancomycin Oral Soln 125 MG/2.5 ML UDC PO SCH (23:45)
[2021-03-05] MEDS: Nystatin POWDER 30 GM BOTTLE TP SCH (23:48)
[2021-03-05] MEDS: Ringers Solution, Lactated 1,000 ML IVC SCH (23:48)
[2021-03-06] MEDS ORDERED: Haloperidol Lactate 5 MG/ML VIAL IVP ONE (00:15)
[2021-03-06] MEDS ORDERED: *HR* HYDROmorphone (PF) 1 MG/ML SYRINGE IVP ONE (00:16)
[2021-03-06 00:49] LABS: Hemoglobin 10.5 g/dL (12.9-16.9); Red Cell Distribution Width 21.4 % (11.5-14.5)
[2021-03-06 00:51] LABS: Hematocrit 31.9 % (37.5-50.1); Immature Platelets 6.3 % (1.1-6.1); Mean Corpuscular HGB Conc 32.9 g/dL (31.6-35.5); Mean Corpuscular Hemoglobin 35.5 pg (28.0-33.3); Mean Corpuscular Volume 107.8 fL (83.0-100.0); Mean Platelet Volume 11.1 fL (9.4-12.4); Platelet Count 116 K/mcL (140-400); Red Blood Count 2.96 M/mcL (4.19-5.50); White Blood Count 29.3 K/mcL (4.3-11.1)
[2021-03-06] MEDS: MetroNIDAZOLE 500 MG/100 ML 500 MG/100 ML BAG IVPB SCH ×4 (00:52→23:37)
[2021-03-06 01:03] LABS: INR 2.1; Prothrombin Time 23.2 Seconds (9.4-12.1)
[2021-03-06 01:14] LABS: Anisocytosis 1+ (Not Present); Platelet Estimate Normal (Normal); Poikilocytosis 1+ (Not Present); Toxic Granulation Present (Not Present); Toxic Vacuolation Present (Not Present)
[2021-03-06 01:16] LABS: Lymphocytes # 1.2 K/mcL (0.6-4.6); Monocytes # 1.2 K/mcL (0.0-1.3); Neutrophils # 25.2 K/mcL (1.6-8.9)
[2021-03-06 02:01] LABS: Troponin I 0.07 ng/mL (< 0.04)
[2021-03-06 02:02] LABS: Alanine Aminotransferase 27 Units/L (7-52); Albumin 1.8 g/dL (3.5-5.7); Albumin/Globulin Ratio 0.5 (1.1-2.2); Alkaline Phosphatase 224 Units/L (34-104); Aspartate Amino Transferase 54 Units/L (13-39); BUN/Creatinine Ratio 14 (6-26); Bilirubin,Total 2.7 mg/dL (0.3-1.0); Blood Urea Nitrogen 13 mg/dL (6-20); Calcium 7.1 mg/dL (8.6-10.3); Carbon Dioxide 21 mEq/L (23-29); Chloride 107 mEq/L (98-107); Chol/HDL Ratio 9.5 (0-4.9); Cholesterol 38 mg/dL (< 200); Globulin 3.3 g/dL (2.4-3.5); Glucose 42 mg/dL (70-105); HDL Cholesterol 4 mg/dL (40-59); LDL Cholesterol,Calculated 20 mg/dL (< 100); Magnesium 1.7 mg/dL (1.6-2.6); Osmolality,Calculated 281 (280-300); Phosphorous 4.2 mg/dL (2.7-4.5); Potassium 3.8 mEq/L (3.5-5.1); Sodium 137 mEq/L (136-145); Total Protein 5.1 g/dL (6.4-8.9); Triglycerides 68 mg/dL (< 150); eGFR For African Americans > 60 (> 60); eGFR For Non-African Americans > 60 (> 60)
[2021-03-06] MEDS ORDERED: Dexmedetomidine HCl 400 MCG/100 ML MLS IVC SCH (02:30)
[2021-03-06] MEDS ORDERED: *HR* Dextrose 50 % in Water (Syg) 50 ML SYRINGE IVP PRN (03:35)
[2021-03-06] MEDS ORDERED: Dextrose Gel 15 GM/37.5 ML TUBE PO PRN ×2 (03:35)
[2021-03-06] MEDS ORDERED: D5% in Water 1,000 ML IVC PRN (03:35)
[2021-03-06] MEDS ORDERED: *HR* Dextrose 50 % in Water (Syg) 50 ML SYRINGE ONE (03:38)
[2021-03-06] MEDS ORDERED: *HR* LORazepam 2 MG/ML VIAL IM STA (03:48)
[2021-03-06] MEDS ORDERED: *HR* LORazepam 2 MG/ML VIAL ONE (05:32)
[2021-03-06] MEDS ORDERED: *HR* LORazepam 2 MG/ML VIAL IVP ONE (05:32)
[2021-03-06] MEDS: Albumin Human 5% 12.5 GM/250 ML IV.SOLN IVC SCH ×2 (05:40→09:51)
[2021-03-06] MEDS: D5% in Lactated Ringers 1,000 ML IVC SCH ×2 (05:40→18:21)
[2021-03-06] MEDS: Vancomycin 500 MG, Sodium Chloride IRRigation 250 ML RC SCH ×5 (05:42→20:54)
[2021-03-06] MEDS: Ringers Solution, Lactated 1,000 ML IVC SCH (05:58)
[2021-03-06] MEDS: Calcium Gluconate 1gm/50mL 1 GM/50 ML BAG IVPB SCH ×4 (06:16→23:35)
[2021-03-06] MEDS: Nystatin POWDER 30 GM BOTTLE TP SCH ×2 (08:13→20:54)
[2021-03-06] MEDS: Dexmedetomidine HCl 400 MCG/100 ML MLS IVC SCH ×2 (08:30→20:44)
[2021-03-06] MEDS ORDERED: Lactulose Oral Soln 20 GM/30 ML UDC PO SCH (09:00)
[2021-03-06] MEDS ORDERED: *HR* LORazepam 2 MG/ML VIAL IVP PRN ×3 (09:33)
[2021-03-06 14:00] LABS: Adenovirus Not Detected (Not Detect); Bordetella Pertussis Not Detected (Not Detect); Chlamydophila pneumoniae Not Detected (Not Detect); Coronavirus 229E Not Detected (Not Detect); Coronavirus HKU1 Not Detected (Not Detect); Coronavirus NL63 Not Detected (Not Detect); Coronavirus OC43 Not Detected (Not Detect); Human Metapneumovirus Not Detected (Not Detect); Human Rhinovirus/Enterovirus Not Detected (Not Detect); Influenza A Subtype 2009 H1 Not Detected (Not Detect); Influenza B Not Detected (Not Detect); Mycoplasma pneumoniae Not Detected (Not Detect); Parainfluenza Virus 1 Not Detected (Not Detect); Parainfluenza Virus 2 Not Detected (Not Detect); Parainfluenza Virus 3 Not Detected (Not Detect); Parainfluenza Virus 4 Not Detected (Not Detect); Respiratory Syncytial Virus Not Detected (Not Detect); SARS-CoV-2 Not Detected (Not Detect)
[2021-03-06] MEDS: Vancomycin Oral Soln 125 MG/2.5 ML UDC PO SCH ×3 (14:38→20:42)
[2021-03-06] MEDS: Cefepime HCl 2,000 MG in 0.9 % Sodium Chloride Mini Bag 100 ML IVPB SCH (18:20)
[2021-03-06] MEDS: Thiamine (B-1) 100 MG, Folic Acid 1 MG, MVI, adult with vitamin K 10 ML in 0.9 % Sodi... IVPB SCH (18:45)
[2021-03-06 19:45] LABS: ABG Base Excess -3 mEq/L (-2 to 3); ABG HCO3 21 mEq/L (21-27); ABG Oxygen Saturation 97 % (95-98); ABG PCO2 34 mmHg (35-45); ABG PO2 91 mmHg (85-104); ABG TCO2 22 mEq/L (20-26)
[2021-03-06] MEDS: Norepinephrine 4 MG/254 ML IV.SOLN IVC SCH (20:54)
[2021-03-06 21:28] LABS: VBG Ionized Calcium 1.08 mmol/L (1.15-1.35)
[2021-03-06 21:42] LABS: BUN/Creatinine Ratio 17 (6-26); Blood Urea Nitrogen 15 mg/dL (6-20); Calcium 7.1 mg/dL (8.6-10.3); Carbon Dioxide 23 mEq/L (23-29); Chloride 110 mEq/L (98-107); Glucose 193 mg/dL (70-105); Osmolality,Calculated 288 (280-300); Phosphorous 3.7 mg/dL (2.7-4.5); Potassium 3.4 mEq/L (3.5-5.1); Sodium 136 mEq/L (136-145); eGFR For African Americans > 60 (> 60); eGFR For Non-African Americans > 60 (> 60)
[2021-03-06] MEDS ORDERED: D5% in Lactated Ringers 1,000 ML IVC SCH (22:51)
[2021-03-07] MEDS ORDERED: *HR* Etomidate 20 MG/10 ML AMPUL IVP ONE (04:19)
[2021-03-07] MEDS ORDERED: *HR* Midazolam HCl 5 MG/5 ML VIAL IVP ONE (04:19)
[2021-03-07 04:28] LABS: VBG Ionized Calcium 1.14 mmol/L (1.15-1.35)
[2021-03-07 04:52] LABS: Basophils % 0.2 %; Eosinophils % 0.2 %; Nucleated Red Blood Cells 0.1 /100 WBC (0)
[2021-03-07 04:54] LABS: Hematocrit 30.3 % (37.5-50.1); Hemoglobin 9.7 g/dL (12.9-16.9); Immature Granulocytes % 0.4 % (0-4); Lymphocytes # 2.9 K/mcL (0.6-4.6); Lymphocytes % 15.2 %; Mean Corpuscular Hemoglobin 35.1 pg (28.0-33.3); Mean Corpuscular Volume 109.8 fL (83.0-100.0); Mean Platelet Volume 11.3 fL (9.4-12.4); Monocytes # 0.6 K/mcL (0.0-1.3); Neutrophils # 15.4 K/mcL (1.6-8.9); Red Blood Count 2.76 M/mcL (4.19-5.50); Red Cell Distribution Width 21.3 % (11.5-14.5)
[2021-03-07 05:01] LABS: INR 1.9; Prothrombin Time 20.8 Seconds (9.4-12.1)
[2021-03-07 05:19] LABS: Alanine Aminotransferase 38 Units/L (7-52); Albumin/Globulin Ratio 0.7 (1.1-2.2); Alkaline Phosphatase 253 Units/L (34-104); Aspartate Amino Transferase 94 Units/L (13-39); BUN/Creatinine Ratio 18 (6-26); Bilirubin,Direct 2.2 mg/dL (0.0-0.2); Bilirubin,Indirect 0.9 mg/dL (0.0-1.0); Bilirubin,Total 3.1 mg/dL (0.3-1.0); Blood Urea Nitrogen 16 mg/dL (6-20); Calcium 7.7 mg/dL (8.6-10.3); Carbon Dioxide 21 mEq/L (23-29); Chloride 110 mEq/L (98-107); Globulin 2.9 g/dL (2.4-3.5); Glucose 206 mg/dL (70-105); Osmolality,Calculated 289 (280-300); Phosphorous 3.1 mg/dL (2.7-4.5); Potassium 3.9 mEq/L (3.5-5.1); Sodium 136 mEq/L (136-145); Total Protein 4.9 g/dL (6.4-8.9); eGFR For African Americans > 60 (> 60); eGFR For Non-African Americans > 60 (> 60)
[2021-03-07 05:31] LABS: Platelet Count 96 K/mcL (140-400)
[2021-03-07] MEDS: Cefepime HCl 2,000 MG in 0.9 % Sodium Chloride Mini Bag 100 ML IVPB SCH ×3 (05:47→21:53)
[2021-03-07] MEDS: Norepinephrine 4 MG/254 ML IV.SOLN IVC SCH ×2 (06:29→12:40)
[2021-03-07 07:24] LABS: Anisocytosis 1+ (Not Present); Macrocytosis Present (Not Present); Platelet Estimate Slight Decrease (Normal)
[2021-03-07] MEDS: Vancomycin Oral Soln 125 MG/2.5 ML UDC PO SCH ×4 (07:37→21:52)
[2021-03-07] MEDS: MetroNIDAZOLE 500 MG/100 ML 500 MG/100 ML BAG IVPB SCH ×3 (07:38→15:16)
[2021-03-07] MEDS: Nystatin POWDER 30 GM BOTTLE TP SCH ×2 (08:15→20:30)
[2021-03-07] MEDS: Midazolam HCl 50 MG/100 ML IV.SOLN IVC SCH (09:41)
[2021-03-07] MEDS: FentaNYL (PF) 1,000 MCG/100 ML IV.SOLN IVC SCH (09:41)
[2021-03-07] MEDS ORDERED: Artificial Tears SOLN 15 ML BOTTLE BOTH EYES PRN (09:55)
[2021-03-07] MEDS: Artificial Tears SOLN 15 ML BOTTLE BOTH EYES SCH ×3 (10:58→20:30)
[2021-03-07] MEDS: Vancomycin 500 MG, Sodium Chloride IRRigation 250 ML RC SCH ×4 (10:59→23:31)
[2021-03-07] MEDS: Budesonide/Formoterol 160/4.5 1 PUFF INH IH SCH ×2 (11:22→19:37)
[2021-03-07 11:49] LABS: ABG Base Excess -3 mEq/L (-2 to 3); ABG HCO3 21 mEq/L (21-27); ABG Oxygen Saturation 99 % (95-98); ABG PCO2 32 mmHg (35-45); ABG PH 7.43 pH Units (7.32-7.45); ABG PO2 117 mmHg (85-104); ABG TCO2 22 mEq/L (20-26); Blood Gas VT 500 cc
[2021-03-07] MEDS: Pantoprazole 40 MG VIAL IVP SCH (12:08)
[2021-03-07] MEDS: Albumin Human 5% 12.5 GM/250 ML IV.SOLN IVC SCH ×2 (14:09→18:04)
[2021-03-07] MEDS: Norepinephrine 8 MG/258 ML IV.SOLN IVC SCH ×2 (15:36→22:16)
[2021-03-07] MEDS: Thiamine (B-1) 100 MG, Folic Acid 1 MG, MVI, adult with vitamin K 10 ML in 0.9 % Sodi... IVPB SCH (17:51)
[2021-03-07] MEDS: Dexmedetomidine HCl 400 MCG/100 ML MLS IVC SCH (18:09)
[2021-03-07] MEDS: Chlorhexidine Rinse 15 ML MOUTHWASH MM SCH (21:52)
[2021-03-08] MEDS: Artificial Tears SOLN 15 ML BOTTLE BOTH EYES SCH ×7 (00:30→23:33)
[2021-03-08] MEDS: FentaNYL (PF) 1,000 MCG/100 ML IV.SOLN IVC SCH ×2 (01:41→17:52)
[2021-03-08] MEDS: MetroNIDAZOLE 500 MG/100 ML 500 MG/100 ML BAG IVPB SCH ×4 (01:48→23:33)
[2021-03-08] MEDS: Midazolam HCl 50 MG/100 ML IV.SOLN IVC SCH ×2 (01:48→17:52)
[2021-03-08 03:42] LABS: Nucleated Red Blood Cells 0.3 /100 WBC (0)
[2021-03-08 03:44] LABS: Basophils % 0.2 %; Eosinophils # 0.1 K/mcL (0.0-0.6); Eosinophils % 0.7 %; Hematocrit 24.4 % (37.5-50.1); Hemoglobin 7.8 g/dL (12.9-16.9); Immature Granulocytes % 0.8 % (0-4); Immature Platelets 4.4 % (1.1-6.1); Lymphocytes # 2.6 K/mcL (0.6-4.6); Lymphocytes % 21.9 %; Mean Corpuscular Hemoglobin 35.1 pg (28.0-33.3); Mean Corpuscular Volume 109.9 fL (83.0-100.0); Mean Platelet Volume 10.7 fL (9.4-12.4); Monocytes # 1.1 K/mcL (0.0-1.3); Red Blood Count 2.22 M/mcL (4.19-5.50); Red Cell Distribution Width 21.3 % (11.5-14.5); Segmented Neutrophils % 67.4 %; White Blood Count 11.8 K/mcL (4.3-11.1)
[2021-03-08 03:47] LABS: VBG Ionized Calcium 1.05 mmol/L (1.15-1.35)
[2021-03-08 03:54] LABS: INR 2.2; Prothrombin Time 24.5 Seconds (9.4-12.1)
[2021-03-08 03:58] LABS: ABG Base Excess -3 mEq/L (-2 to 3); ABG HCO3 21 mEq/L (21-27); ABG Oxygen Saturation 98 % (95-98); ABG PCO2 33 mmHg (35-45); ABG PO2 104 mmHg (85-104); ABG TCO2 22 mEq/L (20-26); Blood Gas VT 500 cc
[2021-03-08 04:00] LABS: Alanine Aminotransferase 35 Units/L (7-52); Albumin 1.9 g/dL (3.5-5.7); Albumin/Globulin Ratio 0.8 (1.1-2.2); Alkaline Phosphatase 210 Units/L (34-104); Aspartate Amino Transferase 70 Units/L (13-39); BUN/Creatinine Ratio 17 (6-26); Bilirubin,Direct 2.1 mg/dL (0.0-0.2); Bilirubin,Indirect 1.1 mg/dL (0.0-1.0); Bilirubin,Total 3.2 mg/dL (0.3-1.0); Blood Urea Nitrogen 16 mg/dL (6-20); Calcium 6.5 mg/dL (8.6-10.3); Carbon Dioxide 18 mEq/L (23-29); Chloride 116 mEq/L (98-107); Globulin 2.4 g/dL (2.4-3.5); Glucose 102 mg/dL (70-105); Magnesium 1.7 mg/dL (1.6-2.6); Osmolality,Calculated 291 (280-300); Phosphorous 2.8 mg/dL (2.7-4.5); Potassium 3.1 mEq/L (3.5-5.1); Sodium 140 mEq/L (136-145); Total Protein 4.3 g/dL (6.4-8.9); eGFR For African Americans > 60 (> 60); eGFR For Non-African Americans > 60 (> 60)
[2021-03-08 04:03] LABS: Platelet Count 42 K/mcL (140-400)
[2021-03-08 04:07] LABS: Anisocytosis 2+ (Not Present); Macrocytosis Present (Not Present); Platelet Estimate Decreased (Normal)
[2021-03-08] MEDS: Cefepime HCl 2,000 MG in 0.9 % Sodium Chloride Mini Bag 100 ML IVPB SCH ×3 (05:25→20:58)
[2021-03-08] MEDS: Norepinephrine 8 MG/258 ML IV.SOLN IVC SCH ×3 (06:29→22:30)
[2021-03-08] MEDS: Calcium Gluconate 1gm/50mL 1 GM/50 ML BAG IVPB SCH ×2 (06:31→08:26)
[2021-03-08] MEDS: Budesonide/Formoterol 160/4.5 1 PUFF INH IH SCH ×2 (08:05→22:56)
[2021-03-08] MEDS: Vasopressin 40 UNIT in D5% in Water 100 ML IVC SCH ×2 (08:11→11:49)
[2021-03-08] MEDS: Phenylephrine 10 MG in 0.9 % Sodium Chloride 250 ML IVC SCH ×2 (08:11→13:04)
[2021-03-08] MEDS: Pantoprazole 40 MG VIAL IVP SCH ×2 (08:26→21:01)
[2021-03-08] MEDS: Chlorhexidine Rinse 15 ML MOUTHWASH MM SCH ×2 (08:26→19:57)
[2021-03-08] MEDS: Vancomycin Oral Soln 125 MG/2.5 ML UDC PO SCH ×4 (08:27→19:59)
[2021-03-08] MEDS: Vancomycin 500 MG, Sodium Chloride IRRigation 250 ML RC SCH ×4 (08:27→19:58)
[2021-03-08] MEDS: Nystatin POWDER 30 GM BOTTLE TP SCH ×2 (08:30→19:58)
[2021-03-08] MEDS: Vancomycin 1,250 MG/262.5 ML IV.SOLN IVPB SCH (10:00)
[2021-03-08] MEDS: Dexmedetomidine HCl 400 MCG/100 ML MLS IVC SCH (11:49)
[2021-03-08] MEDS: Thiamine (B-1) 100 MG, Folic Acid 1 MG, MVI, adult with vitamin K 10 ML in 0.9 % Sodi... IVPB SCH (17:24)
[2021-03-08 21:49] LABS: BUN/Creatinine Ratio 18 (6-26); Blood Urea Nitrogen 16 mg/dL (6-20); Calcium 7.6 mg/dL (8.6-10.3); Carbon Dioxide 19 mEq/L (23-29); Chloride 114 mEq/L (98-107); Glucose 97 mg/dL (70-105); Magnesium 2.3 mg/dL (1.6-2.6); Osmolality,Calculated 291 (280-300); Potassium 3.8 mEq/L (3.5-5.1); Sodium 140 mEq/L (136-145); eGFR For African Americans > 60 (> 60); eGFR For Non-African Americans > 60 (> 60)
[2021-03-09] MEDS: Artificial Tears SOLN 15 ML BOTTLE BOTH EYES SCH ×6 (03:22→23:37)
[2021-03-09 05:33] LABS: VBG Ionized Calcium 1.21 mmol/L (1.15-1.35)
[2021-03-09 05:39] LABS: Basophils % 0.2 %; Eosinophils % 0.4 %; Lymphocytes % 16.9 %
[2021-03-09 05:41] LABS: Eosinophils # 0.1 K/mcL (0.0-0.6); Hematocrit 28.5 % (37.5-50.1); Hemoglobin 9.1 g/dL (12.9-16.9); Immature Granulocytes % 1.3 % (0-4); Immature Platelets 5.2 % (1.1-6.1); Lymphocytes # 2.5 K/mcL (0.6-4.6); Mean Corpuscular HGB Conc 31.9 g/dL (31.6-35.5); Mean Corpuscular Hemoglobin 34.7 pg (28.0-33.3); Mean Corpuscular Volume 108.8 fL (83.0-100.0); Mean Platelet Volume 11.1 fL (9.4-12.4); Monocytes # 1.5 K/mcL (0.0-1.3); Monocytes % 10.2 %; Neutrophils # 10.5 K/mcL (1.6-8.9); Nucleated Red Blood Cells 0.3 /100 WBC (0); Red Blood Count 2.62 M/mcL (4.19-5.50); Red Cell Distribution Width 21.5 % (11.5-14.5); White Blood Count 14.8 K/mcL (4.3-11.1)
[2021-03-09 05:46] LABS: Platelet Count 38 K/mcL (140-400)
[2021-03-09 05:47] LABS: INR 2.3; Prothrombin Time 25.2 Seconds (9.4-12.1)
[2021-03-09 05:50] LABS: Alanine Aminotransferase 38 Units/L (7-52); Albumin 2.2 g/dL (3.5-5.7); Albumin/Globulin Ratio 0.7 (1.1-2.2); Alkaline Phosphatase 249 Units/L (34-104); Aspartate Amino Transferase 61 Units/L (13-39); BUN/Creatinine Ratio 20 (6-26); Bilirubin,Direct 2.7 mg/dL (0.0-0.2); Bilirubin,Indirect 1.3 mg/dL (0.0-1.0); Blood Urea Nitrogen 18 mg/dL (6-20); Carbon Dioxide 18 mEq/L (23-29); Chloride 115 mEq/L (98-107); Glucose 93 mg/dL (70-105); Magnesium 2.3 mg/dL (1.6-2.6); Osmolality,Calculated 292 (280-300); Phosphorous 3.6 mg/dL (2.7-4.5); Potassium 3.9 mEq/L (3.5-5.1); Sodium 140 mEq/L (136-145); Total Protein 5.2 g/dL (6.4-8.9); eGFR For African Americans > 60 (> 60); eGFR For Non-African Americans > 60 (> 60)
[2021-03-09] MEDS: Pantoprazole 40 MG VIAL IVP SCH ×2 (05:51→17:30)
[2021-03-09] MEDS: Cefepime HCl 2,000 MG in 0.9 % Sodium Chloride Mini Bag 100 ML IVPB SCH ×3 (05:52→22:23)
[2021-03-09] MEDS: Norepinephrine 8 MG/258 ML IV.SOLN IVC SCH ×3 (05:53→22:25)
[2021-03-09 06:17] LABS: Anisocytosis 2+ (Not Present); Hypochromasia Present (Not Present); Microcytosis Present (Not Present)
[2021-03-09 06:18] LABS: Platelet Estimate Decreased (Normal); Reactive Lymphocytes Present (Not Present)
[2021-03-09] MEDS: Dexmedetomidine HCl 400 MCG/100 ML MLS IVC SCH ×2 (07:22→22:21)
[2021-03-09] MEDS: Vasopressin 40 UNIT in D5% in Water 100 ML IVC SCH (07:24)
[2021-03-09] MEDS: Budesonide/Formoterol 160/4.5 1 PUFF INH IH SCH ×2 (07:50→20:14)
[2021-03-09] MEDS: MetroNIDAZOLE 500 MG/100 ML 500 MG/100 ML BAG IVPB SCH ×3 (08:09→23:34)
[2021-03-09] MEDS: Chlorhexidine Rinse 15 ML MOUTHWASH MM SCH ×2 (08:09→20:01)
[2021-03-09] MEDS: Vancomycin 1,250 MG/262.5 ML IV.SOLN IVPB SCH (08:09)
[2021-03-09] MEDS: Vancomycin Oral Soln 125 MG/2.5 ML UDC PO SCH ×4 (08:10→20:01)
[2021-03-09] MEDS: Nystatin POWDER 30 GM BOTTLE TP SCH ×2 (08:10→20:01)
[2021-03-09] MEDS: Vancomycin 500 MG, Sodium Chloride IRRigation 250 ML RC SCH ×4 (09:23→20:00)
[2021-03-09] MEDS: Phenylephrine 10 MG in 0.9 % Sodium Chloride 250 ML IVC SCH (13:08)
[2021-03-09] MEDS: Midazolam HCl 50 MG/100 ML IV.SOLN IVC SCH (13:09)
[2021-03-09] MEDS: FentaNYL (PF) 1,000 MCG/100 ML IV.SOLN IVC SCH (13:10)
[2021-03-10] MEDS: Artificial Tears SOLN 15 ML BOTTLE BOTH EYES SCH ×6 (03:59→23:37)
[2021-03-10 04:16] LABS: Basophils % 0.3 %; Immature Granulocytes % 1.5 % (0-4)
[2021-03-10 04:19] LABS: Basophils # 0.1 K/mcL (0.0-0.2); Eosinophils % 0.3 %; Hematocrit 29.5 % (37.5-50.1); Hemoglobin 9.3 g/dL (12.9-16.9); Immature Platelets 4.6 % (1.1-6.1); Lymphocytes # 2.3 K/mcL (0.6-4.6); Lymphocytes % 14.9 %; Mean Corpuscular HGB Conc 31.5 g/dL (31.6-35.5); Mean Corpuscular Volume 110.9 fL (83.0-100.0); Mean Platelet Volume 10.5 fL (9.4-12.4); Monocytes # 1.8 K/mcL (0.0-1.3); Monocytes % 12.1 %; Neutrophils # 10.8 K/mcL (1.6-8.9); Nucleated Red Blood Cells 0.1 /100 WBC (0); Red Blood Count 2.66 M/mcL (4.19-5.50); Red Cell Distribution Width 21.9 % (11.5-14.5); Segmented Neutrophils % 70.9 %; White Blood Count 15.2 K/mcL (4.3-11.1)
[2021-03-10 04:20] LABS: Eosinophils # 0.1 K/mcL (0.0-0.6); Platelet Count 39 K/mcL (140-400)
[2021-03-10 04:20] LABS: VBG Ionized Calcium 1.12 mmol/L (1.15-1.35)
[2021-03-10 04:23] LABS: INR 2.4; Prothrombin Time 26.3 Seconds (9.4-12.1)
[2021-03-10 04:41] LABS: Alanine Aminotransferase 36 Units/L (7-52); Albumin 2.1 g/dL (3.5-5.7); Albumin/Globulin Ratio 0.6 (1.1-2.2); Alkaline Phosphatase 260 Units/L (34-104); Aspartate Amino Transferase 61 Units/L (13-39); BUN/Creatinine Ratio 23 (6-26); Bilirubin,Direct 2.8 mg/dL (0.0-0.2); Bilirubin,Indirect 1.4 mg/dL (0.0-1.0); Bilirubin,Total 4.2 mg/dL (0.3-1.0); Blood Urea Nitrogen 21 mg/dL (6-20); Carbon Dioxide 17 mEq/L (23-29); Chloride 115 mEq/L (98-107); Globulin 3.3 g/dL (2.4-3.5); Glucose 99 mg/dL (70-105); Magnesium 2.3 mg/dL (1.6-2.6); Osmolality,Calculated 293 (280-300); Phosphorous 4.5 mg/dL (2.7-4.5); Potassium 4.2 mEq/L (3.5-5.1); Sodium 140 mEq/L (136-145); Total Protein 5.4 g/dL (6.4-8.9); eGFR For African Americans > 60 (> 60); eGFR For Non-African Americans > 60 (> 60)
[2021-03-10] MEDS: Pantoprazole 40 MG VIAL IVP SCH ×2 (05:00→17:06)
[2021-03-10] MEDS: Cefepime HCl 2,000 MG in 0.9 % Sodium Chloride Mini Bag 100 ML IVPB SCH ×3 (05:01→21:08)
[2021-03-10] MEDS: Budesonide/Formoterol 160/4.5 1 PUFF INH IH SCH ×2 (07:42→19:56)
[2021-03-10] MEDS: Vancomycin 500 MG, Sodium Chloride IRRigation 250 ML RC SCH ×4 (09:18→21:39)
[2021-03-10] MEDS: Vancomycin Oral Soln 125 MG/2.5 ML UDC PO SCH ×4 (09:19→21:40)
[2021-03-10] MEDS: Nystatin POWDER 30 GM BOTTLE TP SCH ×2 (09:20→21:05)
[2021-03-10] MEDS: MetroNIDAZOLE 500 MG/100 ML 500 MG/100 ML BAG IVPB SCH ×3 (09:21→23:37)
[2021-03-10] MEDS: Chlorhexidine Rinse 15 ML MOUTHWASH MM SCH ×2 (09:21→21:05)
[2021-03-10 10:00] LABS: ABG Base Excess -7 mEq/L (-2 to 3); ABG HCO3 18 mEq/L (21-27); ABG Oxygen Saturation 92 % (95-98); ABG PCO2 33 mmHg (35-45); ABG PH 7.34 pH Units (7.32-7.45); ABG PO2 68 mmHg (85-104); ABG TCO2 19 mEq/L (20-26); Blood Gas VT 500 cc
[2021-03-10] MEDS: FentaNYL (PF) 1,000 MCG/100 ML IV.SOLN IVC SCH (12:17)
[2021-03-10] MEDS ORDERED: Tigecycline 100 MG in 0.9 % Sodium Chloride 100 ML IVPB ONE (15:01)
[2021-03-10] MEDS: Norepinephrine 8 MG/258 ML IV.SOLN IVC SCH (16:15)
[2021-03-10] MEDS: Midazolam HCl 50 MG/100 ML IV.SOLN IVC SCH (17:10)
[2021-03-10] MEDS ORDERED: Isovue-370 500 ML BOTTLE PO ONE (19:01)
[2021-03-10] MEDS: Vasopressin 40 UNIT in D5% in Water 100 ML IVC SCH (19:32)
[2021-03-10] MEDS: Dexmedetomidine HCl 400 MCG/100 ML MLS IVC SCH (19:33)
[2021-03-10] MEDS: Phenylephrine 10 MG in 0.9 % Sodium Chloride 250 ML IVC SCH (19:33)
[2021-03-11 03:58] LABS: VBG Ionized Calcium 1.18 mmol/L (1.15-1.35)
[2021-03-11 03:58] LABS: Basophils % 0.2 %; Eosinophils # 0.1 K/mcL (0.0-0.6); Eosinophils % 0.5 %; Hematocrit 27.7 % (37.5-50.1); Immature Granulocytes % 1.6 % (0-4); Immature Platelets 6.2 % (1.1-6.1); Lymphocytes # 2.6 K/mcL (0.6-4.6); Mean Corpuscular HGB Conc 32.5 g/dL (31.6-35.5); Mean Corpuscular Hemoglobin 35.3 pg (28.0-33.3); Mean Corpuscular Volume 108.6 fL (83.0-100.0); Mean Platelet Volume 11.6 fL (9.4-12.4); Monocytes # 1.8 K/mcL (0.0-1.3); Monocytes % 11.9 %; Red Blood Count 2.55 M/mcL (4.19-5.50); Red Cell Distribution Width 22.1 % (11.5-14.5); Segmented Neutrophils % 68.8 %
[2021-03-11 03:59] LABS: Neutrophils # 10.3 K/mcL (1.6-8.9); Platelet Count 32 K/mcL (140-400)
[2021-03-11] MEDS: Artificial Tears SOLN 15 ML BOTTLE BOTH EYES SCH ×6 (04:00→23:43)
[2021-03-11 04:07] LABS: INR 2.4; Prothrombin Time 26.7 Seconds (9.4-12.1)
[2021-03-11 04:17] LABS: Alanine Aminotransferase 48 Units/L (7-52); Albumin/Globulin Ratio 0.6 (1.1-2.2); Alkaline Phosphatase 258 Units/L (34-104); Aspartate Amino Transferase 137 Units/L (13-39); BUN/Creatinine Ratio 22 (6-26); Bilirubin,Direct 2.7 mg/dL (0.0-0.2); Bilirubin,Indirect 1.3 mg/dL (0.0-1.0); Blood Urea Nitrogen 28 mg/dL (6-20); Calcium 8.1 mg/dL (8.6-10.3); Carbon Dioxide 17 mEq/L (23-29); Chloride 116 mEq/L (98-107); Globulin 3.4 g/dL (2.4-3.5); Glucose 93 mg/dL (70-105); Magnesium 2.4 mg/dL (1.6-2.6); Osmolality,Calculated 293 (280-300); Phosphorous 5.2 mg/dL (2.7-4.5); Potassium 4.4 mEq/L (3.5-5.1); Sodium 139 mEq/L (136-145); Total Protein 5.4 g/dL (6.4-8.9); eGFR For African Americans > 60 (> 60); eGFR For Non-African Americans 59 (> 60)
[2021-03-11 04:41] LABS: ABG Base Excess -8 mEq/L (-2 to 3); ABG HCO3 17 mEq/L (21-27); ABG Oxygen Saturation 96 % (95-98); ABG PCO2 32 mmHg (35-45); ABG PH 7.34 pH Units (7.32-7.45); ABG PO2 84 mmHg (85-104); ABG TCO2 18 mEq/L (20-26); Blood Gas Modality ASSIST CONTROL; Blood Gas VT 500 cc
[2021-03-11] MEDS: Pantoprazole 40 MG VIAL IVP SCH ×2 (05:42→16:55)
[2021-03-11] MEDS: Cefepime HCl 2,000 MG in 0.9 % Sodium Chloride Mini Bag 100 ML IVPB SCH ×3 (05:42→20:13)
[2021-03-11] MEDS: Vasopressin 40 UNIT in D5% in Water 100 ML IVC SCH (05:43)
[2021-03-11] MEDS: Budesonide/Formoterol 160/4.5 1 PUFF INH IH SCH ×2 (07:36→20:05)
[2021-03-11] MEDS: MetroNIDAZOLE 500 MG/100 ML 500 MG/100 ML BAG IVPB SCH ×3 (07:38→23:43)
[2021-03-11] MEDS: Vancomycin 500 MG, Sodium Chloride IRRigation 250 ML RC SCH ×4 (10:43→20:13)
[2021-03-11] MEDS: Vancomycin Oral Soln 125 MG/2.5 ML UDC PO SCH ×4 (10:45→20:15)
[2021-03-11] MEDS ORDERED: D10% in Water 500 ML IVC PRN (11:53)
[2021-03-11] MEDS: Chlorhexidine Rinse 15 ML MOUTHWASH MM SCH ×2 (12:20→20:14)
[2021-03-11] MEDS: Dexmedetomidine HCl 400 MCG/100 ML MLS IVC SCH (12:21)
[2021-03-11] MEDS: Nystatin POWDER 30 GM BOTTLE TP SCH ×2 (13:01→21:13)
[2021-03-11] MEDS: FentaNYL (PF) 1,000 MCG/100 ML IV.SOLN IVC SCH (15:53)
[2021-03-11] MEDS: Phenylephrine 10 MG in 0.9 % Sodium Chloride 250 ML IVC SCH (15:53)
[2021-03-11] MEDS ORDERED: Clinimix 5%-20% SOLUTION 2,000 ML with MVI, adult with vitamin K 10 ML, Sodium Acetat... IVC SCH (17:00)
[2021-03-11] MEDS: Norepinephrine 8 MG/258 ML IV.SOLN IVC SCH (18:22)
[2021-03-12 04:09] LABS: ABG Base Excess -8 mEq/L (-2 to 3); ABG HCO3 16 mEq/L (21-27); ABG Oxygen Saturation 94 % (95-98); ABG PCO2 24 mmHg (35-45); ABG PH 7.43 pH Units (7.32-7.45); ABG PO2 67 mmHg (85-104); ABG TCO2 16 mEq/L (20-26); Blood Gas VT 500 cc
[2021-03-12 04:11] LABS: Basophils % 0.1 %; Eosinophils # 0.1 K/mcL (0.0-0.6); Eosinophils % 0.8 %; Hematocrit 25.3 % (37.5-50.1); Immature Granulocytes % 1.8 % (0-4); Immature Platelets 10.4 % (1.1-6.1); Lymphocytes # 2.3 K/mcL (0.6-4.6); Lymphocytes % 14.8 %; Mean Corpuscular HGB Conc 35.6 g/dL (31.6-35.5); Mean Corpuscular Hemoglobin 39.3 pg (28.0-33.3); Mean Corpuscular Volume 110.5 fL (83.0-100.0); Mean Platelet Volume 12.5 fL (9.4-12.4); Monocytes # 1.1 K/mcL (0.0-1.3); Neutrophils # 11.7 K/mcL (1.6-8.9); Nucleated Red Blood Cells 0.3 /100 WBC (0); Red Blood Count 2.29 M/mcL (4.19-5.50); Red Cell Distribution Width 22.1 % (11.5-14.5); Segmented Neutrophils % 75.5 %; White Blood Count 15.5 K/mcL (4.3-11.1)
[2021-03-12 04:13] LABS: Platelet Count 27 K/mcL (140-400)
[2021-03-12 04:19] LABS: INR 2.7; Prothrombin Time 29.6 Seconds (9.4-12.1)
[2021-03-12 05:39] LABS: Albumin/Globulin Ratio 0.7 (1.1-2.2); Calcium 7.9 mg/dL (8.6-10.3); Globulin 2.9 g/dL (2.4-3.5); Phosphorous 4.7 mg/dL (2.7-4.5); Potassium 4.5 mEq/L (3.5-5.1); Total Protein 4.9 g/dL (6.4-8.9)
[2021-03-12] MEDS: Vasopressin 40 UNIT in D5% in Water 100 ML IVC SCH ×2 (06:02→23:56)
[2021-03-12] MEDS: Artificial Tears SOLN 15 ML BOTTLE BOTH EYES SCH ×6 (06:02→23:55)
[2021-03-12] MEDS: Dexmedetomidine HCl 400 MCG/100 ML MLS IVC SCH ×2 (06:02→18:00)
[2021-03-12] MEDS: Cefepime HCl 2,000 MG in 0.9 % Sodium Chloride Mini Bag 100 ML IVPB SCH (06:05)
[2021-03-12] MEDS: Pantoprazole 40 MG VIAL IVP SCH (06:06)
[2021-03-12] MEDS: Budesonide/Formoterol 160/4.5 1 PUFF INH IH SCH ×2 (07:44→21:43)
[2021-03-12] MEDS: Chlorhexidine Rinse 15 ML MOUTHWASH MM SCH ×2 (08:13→20:04)
[2021-03-12] MEDS: MetroNIDAZOLE 500 MG/100 ML 500 MG/100 ML BAG IVPB SCH ×3 (08:13→23:27)
[2021-03-12] MEDS: Vancomycin Oral Soln 125 MG/2.5 ML UDC PO SCH ×4 (08:14→20:04)
[2021-03-12] MEDS: Vancomycin 500 MG, Sodium Chloride IRRigation 250 ML RC SCH ×4 (08:14→20:04)
[2021-03-12] MEDS: Nystatin POWDER 30 GM BOTTLE TP SCH ×2 (08:15→20:06)
[2021-03-12] MEDS: Insulin LISPRO 300 UNITS/3 ML VIAL SUBQ SCH ×4 (12:26→23:55)
[2021-03-12] MEDS: Midazolam HCl 50 MG/100 ML IV.SOLN IVC SCH (12:27)
[2021-03-12] MEDS: FentaNYL (PF) 1,000 MCG/100 ML IV.SOLN IVC SCH (12:27)
[2021-03-12] MEDS: Phenylephrine 10 MG in 0.9 % Sodium Chloride 250 ML IVC SCH (12:28)
[2021-03-12] MEDS ORDERED: Clinimix 5%-20% SOLUTION 2,000 ML with MVI, adult with vitamin K 10 ML, Sodium Acetat... IVC SCH (17:00)
[2021-03-12] MEDS ORDERED: Cefepime HCl 2,000 MG in Water for inj. (sterile) 20 ML IVP SCH (18:00)
[2021-03-12] MEDS: Lactulose Oral Soln 20 GM/30 ML UDC GTUBE SCH (20:04)
[2021-03-13 03:41] LABS: Basophils % 0.2 %; Hematocrit 26.5 % (37.5-50.1); Hemoglobin 8.5 g/dL (12.9-16.9); Lymphocytes % 11.6 %; Mean Corpuscular HGB Conc 32.1 g/dL (31.6-35.5); Mean Corpuscular Volume 109.1 fL (83.0-100.0); Red Blood Count 2.43 M/mcL (4.19-5.50)
[2021-03-13 03:43] LABS: Eosinophils # 0.1 K/mcL (0.0-0.6); Eosinophils % 0.5 %; Immature Granulocytes % 1.6 % (0-4); Immature Platelets 15.1 % (1.1-6.1); Mean Platelet Volume 12.9 fL (9.4-12.4); Monocytes # 1.5 K/mcL (0.0-1.3); Monocytes % 8.6 %; Neutrophils # 13.6 K/mcL (1.6-8.9); Nucleated Red Blood Cells 0.2 /100 WBC (0); Segmented Neutrophils % 77.5 %; White Blood Count 17.6 K/mcL (4.3-11.1)
[2021-03-13 03:43] LABS: VBG Ionized Calcium 1.23 mmol/L (1.15-1.35)
[2021-03-13 03:44] LABS: Platelet Count 16 K/mcL (140-400)
[2021-03-13 03:48] LABS: INR 3.1; Prothrombin Time 34.6 Seconds (9.4-12.1)
[2021-03-13 04:01] LABS: Albumin 1.7 g/dL (3.5-5.7); Albumin/Globulin Ratio 0.5 (1.1-2.2); Bilirubin,Direct 2.4 mg/dL (0.0-0.2); Bilirubin,Indirect 1.4 mg/dL (0.0-1.0); Bilirubin,Total 3.8 mg/dL (0.3-1.0); Calcium 7.9 mg/dL (8.6-10.3); Globulin 3.5 g/dL (2.4-3.5); Magnesium 2.4 mg/dL (1.6-2.6); Phosphorous 4.1 mg/dL (2.7-4.5); Potassium 4.2 mEq/L (3.5-5.1); Total Protein 5.2 g/dL (6.4-8.9)
[2021-03-13 04:27] LABS: ABG Base Excess -8 mEq/L (-2 to 3); ABG HCO3 15 mEq/L (21-27); ABG Oxygen Saturation 96 % (95-98); ABG PCO2 25 mmHg (35-45); ABG PH 7.39 pH Units (7.32-7.45); ABG PO2 80 mmHg (85-104); ABG TCO2 16 mEq/L (20-26); Blood Gas VT 500 cc
[2021-03-13] MEDS: Artificial Tears SOLN 15 ML BOTTLE BOTH EYES SCH ×5 (05:44→19:41)
[2021-03-13] MEDS: Insulin LISPRO 300 UNITS/3 ML VIAL SUBQ SCH ×5 (05:44→19:57)
[2021-03-13] MEDS: FentaNYL (PF) 1,000 MCG/100 ML IV.SOLN IVC SCH (05:46)
[2021-03-13] MEDS: Budesonide/Formoterol 160/4.5 1 PUFF INH IH SCH ×2 (07:55→20:19)
[2021-03-13] MEDS: MetroNIDAZOLE 500 MG/100 ML 500 MG/100 ML BAG IVPB SCH ×2 (08:54→16:21)
[2021-03-13] MEDS: Chlorhexidine Rinse 15 ML MOUTHWASH MM SCH ×2 (08:54→19:41)
[2021-03-13] MEDS: Vancomycin Oral Soln 125 MG/2.5 ML UDC PO SCH ×4 (08:55→19:44)
[2021-03-13] MEDS: Lactulose Oral Soln 20 GM/30 ML UDC GTUBE SCH ×2 (08:56→19:41)
[2021-03-13] MEDS: Pantoprazole 40 MG VIAL IVP SCH (08:56)
[2021-03-13] MEDS: Nystatin POWDER 30 GM BOTTLE TP SCH ×2 (08:56→19:44)
[2021-03-13] MEDS: Vancomycin 500 MG, Sodium Chloride IRRigation 250 ML RC SCH ×4 (08:57→19:44)
[2021-03-13] MEDS: Dexmedetomidine HCl 400 MCG/100 ML MLS IVC SCH (14:27)
[2021-03-13] MEDS: Phenylephrine 10 MG in 0.9 % Sodium Chloride 250 ML IVC SCH (14:27)
[2021-03-13] MEDS: Midazolam HCl 50 MG/100 ML IV.SOLN IVC SCH (14:27)
[2021-03-13] MEDS ORDERED: Clinimix 5%-20% SOLUTION 2,000 ML with MVI, adult with vitamin K 10 ML, Sodium Acetat... IVC SCH (17:00)
[2021-03-14] MEDS: Insulin LISPRO 300 UNITS/3 ML VIAL SUBQ SCH ×7 (00:10→23:31)
[2021-03-14] MEDS: Dexmedetomidine HCl 400 MCG/100 ML MLS IVC SCH (00:10)
[2021-03-14] MEDS: Vasopressin 40 UNIT in D5% in Water 100 ML IVC SCH (00:10)
[2021-03-14] MEDS: FentaNYL (PF) 1,000 MCG/100 ML IV.SOLN IVC SCH (00:10)
[2021-03-14] MEDS: Artificial Tears SOLN 15 ML BOTTLE BOTH EYES SCH ×7 (00:10→23:30)
[2021-03-14] MEDS: MetroNIDAZOLE 500 MG/100 ML 500 MG/100 ML BAG IVPB SCH ×4 (00:14→23:39)
[2021-03-14 04:30] LABS: ABG Base Excess -9 mEq/L (-2 to 3); ABG HCO3 15 mEq/L (21-27); ABG Oxygen Saturation 93 % (95-98); ABG PCO2 28 mmHg (35-45); ABG PH 7.35 pH Units (7.32-7.45); ABG PO2 68 mmHg (85-104); ABG TCO2 16 mEq/L (20-26); Blood Gas Modality ASSIST CONTROL; Blood Gas VT 500 cc
[2021-03-14 04:42] LABS: Calcium 8.1 mg/dL (8.6-10.3); Magnesium 2.4 mg/dL (1.6-2.6); Phosphorous 3.8 mg/dL (2.7-4.5); Potassium 4.3 mEq/L (3.5-5.1)
[2021-03-14] MEDS: Budesonide/Formoterol 160/4.5 1 PUFF INH IH SCH ×2 (07:45→19:52)
[2021-03-14] MEDS: Vancomycin Oral Soln 125 MG/2.5 ML UDC PO SCH ×4 (08:57→20:52)
[2021-03-14] MEDS: Pantoprazole 40 MG VIAL IVP SCH (08:57)
[2021-03-14] MEDS: Lactulose Oral Soln 20 GM/30 ML UDC GTUBE SCH ×2 (08:57→20:51)
[2021-03-14] MEDS: Chlorhexidine Rinse 15 ML MOUTHWASH MM SCH ×2 (08:57→20:51)
[2021-03-14] MEDS: Nystatin POWDER 30 GM BOTTLE TP SCH ×2 (09:00→20:52)
[2021-03-14] MEDS: Vancomycin 500 MG, Sodium Chloride IRRigation 250 ML RC SCH ×4 (10:10→23:31)
[2021-03-14] MEDS ORDERED: Clinimix 5%-20% SOLUTION 2,000 ML with MVI, adult with vitamin K 10 ML, Sodium Acetat... IVC SCH (17:00)
[2021-03-15] MEDS: Vasopressin 40 UNIT in D5% in Water 100 ML IVC SCH ×2 (00:02→22:14)
[2021-03-15] MEDS: Phenylephrine 10 MG in 0.9 % Sodium Chloride 250 ML IVC SCH ×3 (00:32→06:06)
[2021-03-15] MEDS: FentaNYL (PF) 1,000 MCG/100 ML IV.SOLN IVC SCH ×2 (02:05→07:42)
[2021-03-15] MEDS: Dexmedetomidine HCl 400 MCG/100 ML MLS IVC SCH ×2 (02:05→07:42)
[2021-03-15] MEDS: Midazolam HCl 50 MG/100 ML IV.SOLN IVC SCH ×2 (02:05→07:42)
[2021-03-15] MEDS: Insulin LISPRO 300 UNITS/3 ML VIAL SUBQ SCH ×5 (03:44→19:35)
[2021-03-15] MEDS: Artificial Tears SOLN 15 ML BOTTLE BOTH EYES SCH ×5 (03:44→21:49)
[2021-03-15 05:07] LABS: ABG Base Excess -11 mEq/L (-2 to 3); ABG HCO3 14 mEq/L (21-27); ABG Oxygen Saturation 94 % (95-98); ABG PCO2 26 mmHg (35-45); ABG PH 7.33 pH Units (7.32-7.45); ABG PO2 72 mmHg (85-104); ABG TCO2 14 mEq/L (20-26); Blood Gas Modality AF; Blood Gas VT 500 cc
[2021-03-15 05:20] LABS: Calcium 8.2 mg/dL (8.6-10.3); Magnesium 2.4 mg/dL (1.6-2.6); Phosphorous 3.7 mg/dL (2.7-4.5)
[2021-03-15 05:21] LABS: Hemoglobin 7.8 g/dL (12.9-16.9)
[2021-03-15 05:23] LABS: Hematocrit 24.5 % (37.5-50.1); Mean Corpuscular HGB Conc 31.8 g/dL (31.6-35.5); Mean Corpuscular Hemoglobin 35.9 pg (28.0-33.3); Mean Corpuscular Volume 112.9 fL (83.0-100.0); Red Blood Count 2.17 M/mcL (4.19-5.50); Red Cell Distribution Width 22.5 % (11.5-14.5)
[2021-03-15 05:44] LABS: Platelet Count 12 K/mcL (140-400)
[2021-03-15] MEDS ORDERED: 0.9 % Sodium Chloride 250 ML IVC SCH (07:30)
[2021-03-15] MEDS: Vancomycin Oral Soln 125 MG/2.5 ML UDC PO SCH ×4 (08:00→21:55)
[2021-03-15] MEDS: Chlorhexidine Rinse 15 ML MOUTHWASH MM SCH ×2 (08:00→21:55)
[2021-03-15] MEDS: Lactulose Oral Soln 20 GM/30 ML UDC GTUBE SCH ×2 (08:00→21:55)
[2021-03-15] MEDS: Pantoprazole 40 MG VIAL IVP SCH (08:00)
[2021-03-15] MEDS: MetroNIDAZOLE 500 MG/100 ML 500 MG/100 ML BAG IVPB SCH ×2 (08:00→16:04)
[2021-03-15] MEDS: Nystatin POWDER 30 GM BOTTLE TP SCH ×2 (08:01→21:50)
[2021-03-15] MEDS: Phenylephrine 50 MG in 0.9 % Sodium Chloride 250 ML IVC SCH ×2 (08:01→18:26)
[2021-03-15] MEDS: Budesonide/Formoterol 160/4.5 1 PUFF INH IH SCH ×2 (08:12→19:28)
[2021-03-15] MEDS: Vancomycin 500 MG, Sodium Chloride IRRigation 250 ML RC SCH ×4 (09:50→22:02)
[2021-03-15] MEDS ORDERED: 0.9 % Sodium Chloride 250 ML ONE (10:47)
[2021-03-15] MEDS: Sodium Bicarbonate 150 MEQ in Water for inj. (sterile) 1,000 ML IVC SCH (13:02)
[2021-03-15] MEDS ORDERED: Clinimix 5%-20% SOLUTION 2,000 ML with MVI, adult with vitamin K 10 ML, Sodium Acetat... IVC SCH (17:00)
[2021-03-15] MEDS: Norepinephrine 8 MG/258 ML IV.SOLN IVC SCH (22:13)
[2021-03-16] MEDS: Insulin LISPRO 300 UNITS/3 ML VIAL SUBQ SCH ×3 (00:05→07:45)
[2021-03-16] MEDS: Artificial Tears SOLN 15 ML BOTTLE BOTH EYES SCH ×3 (00:05→07:46)
[2021-03-16] MEDS: MetroNIDAZOLE 500 MG/100 ML 500 MG/100 ML BAG IVPB SCH ×2 (00:05→07:44)
[2021-03-16 03:52] LABS: Hematocrit 21.6 % (37.5-50.1); Immature Platelets 17.5 % (1.1-6.1); Mean Corpuscular HGB Conc 32.4 g/dL (31.6-35.5); Mean Corpuscular Hemoglobin 35.9 pg (28.0-33.3); Mean Corpuscular Volume 110.8 fL (83.0-100.0); Mean Platelet Volume 12.7 fL (9.4-12.4); Red Blood Count 1.95 M/mcL (4.19-5.50); Red Cell Distribution Width 22.3 % (11.5-14.5); White Blood Count 28.5 K/mcL (4.3-11.1)
[2021-03-16 04:11] LABS: Calcium 7.3 mg/dL (8.6-10.3); Magnesium 2.1 mg/dL (1.6-2.6); Phosphorous 3.1 mg/dL (2.7-4.5); Potassium 4.4 mEq/L (3.5-5.1)
[2021-03-16] MEDS: Sodium Bicarbonate 150 MEQ in Water for inj. (sterile) 1,000 ML IVC SCH ×2 (04:20→10:28)
[2021-03-16] MEDS: Phenylephrine 50 MG in 0.9 % Sodium Chloride 250 ML IVC SCH (04:20)
[2021-03-16 05:10] LABS: ABG Base Excess -8 mEq/L (-2 to 3); ABG HCO3 16 mEq/L (21-27); ABG Oxygen Saturation 97 % (95-98); ABG PCO2 28 mmHg (35-45); ABG PH 7.37 pH Units (7.32-7.45); ABG PO2 96 mmHg (85-104); ABG TCO2 17 mEq/L (20-26); Blood Gas VT 500 cc
[2021-03-16] MEDS: Vancomycin Oral Soln 125 MG/2.5 ML UDC PO SCH (07:44)
[2021-03-16] MEDS: Pantoprazole 40 MG VIAL IVP SCH (07:45)
[2021-03-16] MEDS: Vancomycin 500 MG, Sodium Chloride IRRigation 250 ML RC SCH (07:45)
[2021-03-16] MEDS: Chlorhexidine Rinse 15 ML MOUTHWASH MM SCH (07:45)
[2021-03-16] MEDS: Lactulose Oral Soln 20 GM/30 ML UDC GTUBE SCH (07:45)
[2021-03-16] MEDS: Nystatin POWDER 30 GM BOTTLE TP SCH (07:46)
[2021-03-16] MEDS: Budesonide/Formoterol 160/4.5 1 PUFF INH IH SCH (08:05)
[2021-03-16 08:06] VITALS: TEMP 97.5
[2021-03-16] MEDS: FentaNYL (PF) 1,000 MCG/100 ML IV.SOLN IVC SCH ×3 (08:08→22:23)
[2021-03-16] MEDS ORDERED: *HR* LORazepam 2 MG/ML VIAL IVP PRN ×3 (10:01→12:55)
[2021-03-16] MEDS: Dexmedetomidine HCl 400 MCG/100 ML MLS IVC SCH (10:06)
[2021-03-16] MEDS: Midazolam HCl 50 MG/100 ML IV.SOLN IVC SCH (10:06)
[2021-03-16] MEDS ORDERED: Atropine 1% Opth Drops 100 DROP/5 ML BOTTLE SL PRN ×2 (10:40→12:55)
[2021-03-16] MEDS ORDERED: *HR* LORazepam 2 MG/ML VIAL IVP SCH (10:45)
[2021-03-16] MEDS ORDERED: *HR* FentaNYL (PF) 100 MCG/2 ML VIAL IVP PRN (12:53)
[2021-03-16] MEDS ORDERED: Haloperidol Lactate 5 MG/ML VIAL IVP PRN (12:55)
[2021-03-16] MEDS ORDERED: Clinimix 5%-20% SOLUTION 2,000 ML with MVI, adult with vitamin K 10 ML, Sodium Acetat... IVC SCH (17:00)
[2021-03-17] MEDS: FentaNYL (PF) 1,000 MCG/100 ML IV.SOLN IVC SCH ×3 (04:44→20:50)
[2021-03-17] MEDS: Insulin LISPRO 300 UNITS/3 ML VIAL SUBQ SCH (05:45)
[2021-03-17] MEDS: Artificial Tears SOLN 15 ML BOTTLE BOTH EYES SCH (05:45)
[2021-03-17 19:17] VITALS: BP 39/24; PULSE 74; O2SAT 87
== END 2021-03-18 04:20 | disposition expired | DRG 870 ==
LOC: 2NENU 18:39 → ICNU 03-06 05:04 → 2NNU 03-06 23:19 → ICNU 03-10 19:19 → 2ANU 03-16 18:54
PROVIDERS: ADMIT Internal Medicine; ATTEND Internal Medicine